=== PATIENT | female | born 1930 | race Caucasian/White ===

== ENCOUNTER 2017-05-27 19:43 | Inpatient (IN) ==
--- NOTE | 2017-05-27 20:37 | Emergency Department Note ---
Disposition Clinical Impression: NSTEMI (non-ST elevated myocardial infarction) Disposition: Admitted As Inpatient Condition: Good Time of Disposition: 22:27 General Adult HPI - General Chief complaint: ED Chest Pain Stated complaint: CP Time Seen by Provider: 05/27/17 19:44 Source: patient, EMS Limitations: no limitations Nursing Notes Reviewed: Yes Vital Signs Reviewed: Yes - History of Present Illness HPI Narrative: 86-year-old female presented to the emergency department complaining of chest pain. She was brought in by EMS. She states she got substernal crushing chest pain around 3:30 this afternoon with associated weakness and radiation into the left arm. She denies diaphoresis or nausea or vomiting. Patient denies any chest pain at this time. Patient took 3 nitros at home. She states they minimally reduced her pain. When the pain did not completely go away after the nitroglycerin as she called EMS. When EMS got to her they gave her a full dose aspirin. Patient denies any stents but does state she has a history of TIAs. She states she went for a cardiac catheterization this summer in [place] but they were unable to complete it due to "hard veins". Pain Scale: 0 - Related Data Home Medications Medication Instructions Recorded Confirmed Aspirin [Adult Low Dose Aspirin EC] 81 mg PO DAILY 10/08/15 05/27/17 Atorvastatin [Lipitor] 40 mg PO DAILY 10/08/15 05/27/17 Diltiazem HCl [Diltiazem 24Hr Cd] 240 mg PO DAILY 10/08/15 05/27/17 Olmesartan Medoxomil [Benicar] 40 mg PO DAILY 10/08/15 05/27/17 Pantoprazole Sodium [Protonix] 40 mg PO DAILY 10/08/15 05/27/17 HYDROcodone/Acet 5/325 mg [[place] 1 tab PO Q8H PRN 09/16/16 05/27/17 5-325 mg] Nitroglycerin 0.4 mg SL Q5MIN PRN 09/16/16 05/27/17 Isosorbide MONOnitrate (24 HR) 60 mg PO DAILY 05/27/17 05/27/17 [Imdur] hydroCHLOROthiazide 25 mg PO DAILY 05/27/17 05/27/17 [Hydrochlorothiazide] Allergies Allergy/AdvReac Type Severity Reaction Status Date / Time acetaminophen [From Percocet] AdvReac Nausea Verified 09/16/16 15:18 Oxycodone [From Percocet] AdvReac Nausea Verified 09/16/16 15:18 All systems ED: reviewed and negative except as stated. Constitutional: Reports: weakness. Denies: fever, chills Eyes: Reports: as per HPI ENT ED: Reports: as per HPI Cardiovascular: Reports: chest pain. Denies: palpitations, dyspnea on exertion Respiratory: Denies: cough, dyspnea, wheezes Gastrointestinal: Denies: abdominal pain, nausea, vomiting Genitourinary: Reports: as per HPI Musculoskeletal: Reports: as per HPI Integumentary: Reports: as per HPI Neurological: Reports: as per HPI Psychiatric: Reports: as per HPI Endocrine: Reports: as per HPI Hematological/Lymphatic: Reports: as per HPI Allergic/Immunologic: Reports: as per HPI Past Medical History - Past Medical History Attestation: Yes The following information was validated with the patient. Medical history: Reports: GERD, hyperlipidemia, hypertension, TIA, other Surgical history: Reports: hip replacement, hysterectomy, other Psychiatric history: Reports: no psych history - Social History Smoking Status: Never smoker Smokeless Tobacco Status: No Alcohol use: Reports: none Drug use: Reports: none Physical Exam - General Limitations: no limitations General appearance: alert, in no apparent distress - Head Head exam: atraumatic, normocephalic, normal inspection - Chest Chest inspection: Present: normal inspection, symmetric chest wall rise. Absent : tenderness, rash - Respiratory Respiratory exam: Present: normal lung sounds bilaterally. Absent: respiratory distress, wheezes, stridor - Cardiovascular Cardiovascular exam: Present: regular rate, normal rhythm, normal heart sounds - Abdominal Exam Abdominal exam: Present: soft, Non-Tender. Absent: distention, guarding, rebound - Extremities Exam Extremities exam: Present: normal inspection, full ROM - Neurological Exam Neurological exam: Present: alert, oriented X3 - Psychiatric Psychiatric exam: Present: normal affect, normal mood - Skin Skin exam: Present: warm, intact Course Course Narrative: 86-year-old female presented to the emergency department complaining of chest pain. EKG completed shows concerning nonspecific ST changes along with new right bundle branch block. A chest pain workup will be completed. Disposition will be admission. Patient is pain-free at this time. She is alert and oriented 3 in the room with stable vital signs at this time. - Reevaluation(s) Reevaluation #1: Troponin has come back elevated at 0.31. I have spoken with cardiology on-call doctor Amelie who agrees with our plan of starting a heparin drip at this time. He agrees with controlling her blood pressure with Nitropaste at this time. We will admit the patient to hospitalist care and cardiology will follow her in the morning. Patient alert and oriented times August with stable vital signs. She is slightly hypertensive with systolic 180 at this time. Patient awaiting Nitropaste. Time: 21:16 Reevaluation #2: Dr. Kate accepts the patient. Time: 22:27 Vital Signs Temperature 98 F 05/27/17 19:45 Pulse Rate 88 05/27/17 19:45 Respiratory Rate 16 05/27/17 19:45 Blood Pressure 198/115 05/27/17 19:45 O2 Sat by Pulse Oximetry 96 05/27/17 19:45 Temperature 97.8 F 05/27/17 23:41 Pulse Rate 71 05/27/17 23:41 Respiratory Rate 16 05/27/17 23:41 Blood Pressure 151/93 05/27/17 23:41 O2 Sat by Pulse Oximetry 97 05/27/17 23:41 Oxygen Delivery Oxygen Delivery Room Air Medical Decision Making - Lab Data Result diagrams: 05/27/17 20:21 05/27/17 20:21 Lab Results 05/27/17 05/27/17 05/27/17 Range/Units 20:21 20:21 20:21 WBC 9.5 (4.3-11.1) K/mcL RBC 4.11 (3.82-4.97) M/mcL Hgb 12.8 (11.5-15.4) g/dL Hct 38.1 (35.3-44.9) % MCV 92.7 (83.0-100.0) fL MCH 31.1 (28.0-33.3) pg MCHC 33.6 (31.6-35.5) g/dL RDW 13.2 (11.5-14.5) % Plt Count 264 (140-400) K/mcL MPV 9.8 (9.4-12.4) fL Immature Gran % 0.3 (0-4) % Seg Neutrophils % 70.6 % Lymphocytes % 17.5 % Monocytes % 9.9 % Eosinophils % 1.2 % Basophils % 0.5 % Neutrophils # 6.7 (1.6-8.9) K/mcL Lymphocytes # 1.7 (0.6-4.6) K/mcL Monocytes # 0.9 (0.0-1.3) K/mcL Eosinophils # 0.1 (0.0-0.6) K/mcL Basophils # 0.1 (0.0-0.2) K/mcL PT (9.4-12.1) Seconds INR APTT (26.0-36.0) Seconds Sodium 136 (136-145) mEq/L Potassium 3.8 (3.5-4.5) mEq/L Chloride 103 (98-109) mEq/L Carbon Dioxide 25 (19-29) mEq/L BUN 13 (7-20) mg/dL Creatinine 0.89 (0.57-1.11) mg/dL Est GFR ( Amer) > 60 (> 60) Est GFR (Non-Af Amer) > 60 (> 60) BUN/Creatinine Ratio 15 (6-26) Glucose 158 H (70-99) mg/dL Calculated Osmolality 285 (280-300) Calcium 9.6 (8.6-10.8) mg/dL Troponin I 0.31 H* (0-0.03) ng/mL 05/27/17 Range/Units 21:06 WBC (4.3-11.1) K/mcL RBC (3.82-4.97) M/mcL Hgb (11.5-15.4) g/dL Hct (35.3-44.9) % MCV (83.0-100.0) fL MCH (28.0-33.3) pg MCHC (31.6-35.5) g/dL RDW (11.5-14.5) % Plt Count (140-400) K/mcL MPV (9.4-12.4) fL Immature Gran % (0-4) % Seg Neutrophils % % Lymphocytes % % Monocytes % % Eosinophils % % Basophils % % Neutrophils # (1.6-8.9) K/mcL Lymphocytes # (0.6-4.6) K/mcL Monocytes # (0.0-1.3) K/mcL Eosinophils # (0.0-0.6) K/mcL Basophils # (0.0-0.2) K/mcL PT 11.5 (9.4-12.1) Seconds INR 1.1 APTT 30.2 (26.0-36.0) Seconds Sodium (136-145) mEq/L Potassium (3.5-4.5) mEq/L Chloride (98-109) mEq/L Carbon Dioxide (19-29) mEq/L BUN (7-20) mg/dL Creatinine (0.57-1.11) mg/dL Est GFR ( Amer) (> 60) Est GFR (Non-Af Amer) (> 60) BUN/Creatinine Ratio (6-26) Glucose (70-99) mg/dL Calculated Osmolality (280-300) Calcium (8.6-10.8) mg/dL Troponin I (0-0.03) ng/mL - EKG Data EKG #1 EKG attestation: Yes I reviewed and interpreted this EKG. EKG results narrative: First-degree AV block. 85 bpm. Left axis deviation. NC interval 211, QRS 142 , QTC 423. ST segment elevation noted in 1 and aVL. Significant T-wave depression noted in V1, V2, V3, V4. T-wave inversion also noted in lead III. When compared to previous EKG completed on 09/16/2016 obvious signs of new ischemia and ST segment changes seen. Attestation Statement - Attestation Attestation: I, Jaylen Gustafson, examined this patient and my medical decision-making was reviewed with the FLOOR CARE TECHNICIAN/PA/Advanced Practice Nurse/Resident Physician. I agree with the documented findings, disposition and treatment plan as described except to the extent set forth below. 86-year-old female presents to emergency Department with concerns of acute onset chest pain. Patient states pain was a pressure located in the center of her chest, described as a crushing chest pressure, which lasted 30 minutes before resolving with nitroglycerin. Patient states she has a history of coronary artery disease but she was unable to have a cardiac catheterization with stenting secondary to narrowed vessels. Patient had elevation of her initial troponin 0.31. Patient was started on heparin and aspirin in the emergency department. The resident spoke with the lawn mower regarding the patient's elevated troponin and likely an STEMI. Acoustical Tile Patternmaker recommended admission to the hospital with heparin and will see in the morning. Patient is pain-free in the emergency department. Patient comfortable with the plan for admission to the hospital.
[2017-05-27 20:40] LABS: Basophils # 0.1 K/mcL (0.0-0.2); Basophils % 0.5 %; Eosinophils # 0.1 K/mcL (0.0-0.6); Eosinophils % 1.2 %; Hematocrit 38.1 % (35.3-44.9); Hemoglobin 12.8 g/dL (11.5-15.4); Immature Granulocytes % 0.3 % (0-4); Lymphocytes # 1.7 K/mcL (0.6-4.6); Lymphocytes % 17.5 %; Mean Corpuscular HGB Conc 33.6 g/dL (31.6-35.5); Mean Corpuscular Hemoglobin 31.1 pg (28.0-33.3); Mean Corpuscular Volume 92.7 fL (83.0-100.0); Mean Platelet Volume 9.8 fL (9.4-12.4); Monocytes # 0.9 K/mcL (0.0-1.3); Monocytes % 9.9 %; Neutrophils # 6.7 K/mcL (1.6-8.9); Platelet Count 264 K/mcL (140-400); Red Blood Count 4.11 M/mcL (3.82-4.97); Red Cell Distribution Width 13.2 % (11.5-14.5); Segmented Neutrophils % 70.6 %
[2017-05-27 20:56] LABS: BUN/Creatinine Ratio 15 (6-26); Blood Urea Nitrogen 13 mg/dL (7-20); Calcium 9.6 mg/dL (8.6-10.8); Carbon Dioxide 25 mEq/L (19-29); Chloride 103 mEq/L (98-109); Glucose 158 mg/dL (70-99); Osmolality,Calculated 285 (280-300); Potassium 3.8 mEq/L (3.5-4.5); Sodium 136 mEq/L (136-145); eGFR For African Americans > 60 (> 60); eGFR For Non-African Americans > 60 (> 60)
[2017-05-27] MEDS ORDERED: Nitroglycerin 0.4 MG TAB.SUBL SL PRN (21:06)
[2017-05-27] MEDS ORDERED: *HR* Heparin 5,000 UNIT/ML VIAL IVP ONE (21:07)
[2017-05-27] MEDS ORDERED: *HR* Heparin 5,000 UNIT/ML VIAL IVP PRN (21:07)
[2017-05-27] MEDS ORDERED: Nitroglycerin 0.2 MG PATCH.TD24 TD ONE (21:15)
[2017-05-27 21:31] LABS: INR 1.1; Prothrombin Time 11.5 Seconds (9.4-12.1)
[2017-05-27 21:41] LABS: Activated Partial Thrombo Time 30.2 Seconds (26.0-36.0)
[2017-05-27] MEDS: Heparin 25,000 UNIT/500 ML D5W 25,000 UNIT/500 ML MLS IVC SCH (22:17)
--- NOTE | 2017-05-28 01:59 | Internal Med History&Physical ---
Date of Encounter: 05/28/17 Time of Encounter: 01:55 Assessment and Plan (1) NSTEMI (non-ST elevated myocardial infarction) Current visit: Yes Status: Acute Patient presents with typical anginal pain lasted for 30 minutes unresolved with sublingual nitroglycerin. 10.3. Her electrocardiogram shows new RBBB and subtle [address] elevation in I avl. Will repeat EKG. start the patient on antipsychotic medications including full dose heparin. Patient is currently chest pain free. Cardiology will see the patients. She will be NPO for coronary angiography. We will try to get outside records. She mentioned that last year she had a similar episode and attempt of coronary angiography was unsuccessful due to difficulty of passage of the wire. She is full dacia Internal Medicine - H&P: HPI Chief complaint: chest pain History of present illness: Ms. Houston is a 86 year old female patient with history of HTN and CAD present to the ED today with a main complain of chest pain. At approximately 5 30 pm the patient started experiencing, at rest retrosternal chest pain which she describes as heaviness sensation radiating to the left arm. This lasted for approximately 30 minutes and rsolved after administration of SLN. She was off pain during my interview. She had similar episodes before. Past Med Surg Social Fam HX - Past Medical History Medical history: GERD, hyperlipidemia, hypertension, TIA, other Psychiatric history: no psych history - Past Surgical History Surgical History: hip replacement, hysterectomy, other - Social History Smoking Status: Never smoker Smokeless Tobacco Status: No Alcohol use: none Drug use: none - Family History Mother Hx Family Cardiac Disorders: Yes Brother Hx Family Cardiac Disorders: Yes Internal Medicine - H&P: Meds Aspirin [Adult Low Dose Aspirin EC] 81 mg PO DAILY 10/08/15 [History] Atorvastatin [Lipitor] 40 mg PO DAILY 10/08/15 [History] Diltiazem HCl [Diltiazem 24Hr Cd] 240 mg PO DAILY 10/08/15 [History] Olmesartan Medoxomil [Benicar] 40 mg PO DAILY 10/08/15 [History] Pantoprazole Sodium [Protonix] 40 mg PO DAILY 10/08/15 [History] HYDROcodone/Acet 5/325 mg [[place] 5-325 mg] 1 tab PO Q8H PRN 09/16/16 [History] Nitroglycerin 0.4 mg SL Q5MIN PRN 09/16/16 [History] Isosorbide MONOnitrate (24 HR) [Imdur] 60 mg PO DAILY 05/27/17 [History] hydroCHLOROthiazide [Hydrochlorothiazide] 25 mg PO DAILY 05/27/17 [History] 3 Allergy/AdvReac Type Severity Reaction Status Date / Time acetaminophen [From Percocet] AdvReac Nausea Verified 09/16/16 15:18 Oxycodone [From Percocet] AdvReac Nausea Verified 09/16/16 15:18 All Systems PM: A 10-system review of systems was performed and is negative for pertinent findings except as documented above in the HPI. Review of systems: 10 point review of systems is negative except for HPI - Constitutional Vitals: Temp Pulse Resp BP Pulse Ox 97.8 F 71 16 151/93 97 05/27/17 23:41 05/27/17 23:41 05/27/17 23:41 05/27/17 23:41 05/27/17 23:41 Exam: Gen.: patient is alert oriented times 3 not in distress cardiac: Normal S1, S2, no additional sounds or murmurs chest: Clear to auscultation Abdomen: Soft, non tender lower extremity Lax calf muscles no swelling Neuro: no focal deficits Internal Med - H&P Results - Labs CBC & Chem 7: 05/27/17 20:21 05/27/17 20:21
[2017-05-28 02:16] LABS: Basophils # 0.1 K/mcL (0.0-0.2); Basophils % 0.6 %; Eosinophils # 0.2 K/mcL (0.0-0.6); Eosinophils % 1.7 %; Hematocrit 34.6 % (35.3-44.9); Hemoglobin 11.7 g/dL (11.5-15.4); Immature Granulocytes % 0.3 % (0-4); Immature Platelets 5.2 % (1.1-6.1); Lymphocytes # 2.1 K/mcL (0.6-4.6); Lymphocytes % 20.7 %; Mean Corpuscular HGB Conc 33.8 g/dL (31.6-35.5); Mean Corpuscular Hemoglobin 31.5 pg (28.0-33.3); Mean Corpuscular Volume 93.3 fL (83.0-100.0); Mean Platelet Volume 9.7 fL (9.4-12.4); Monocytes # 1.2 K/mcL (0.0-1.3); Monocytes % 11.1 %; Neutrophils # 6.8 K/mcL (1.6-8.9); Platelet Count 294 K/mcL (140-400); Red Blood Count 3.71 M/mcL (3.82-4.97); Red Cell Distribution Width 13.2 % (11.5-14.5); Segmented Neutrophils % 65.6 %
[2017-05-28 02:21] LABS: INR 1.2; Prothrombin Time 12.6 Seconds (9.4-12.1)
[2017-05-28 02:29] LABS: BUN/Creatinine Ratio 16 (6-26); Blood Urea Nitrogen 12 mg/dL (7-20); Carbon Dioxide 24 mEq/L (19-29); Chloride 106 mEq/L (98-109); Creatine Kinase 142 Units/L (29-168); Glucose 108 mg/dL (70-99); Osmolality,Calculated 286 (280-300); Potassium 3.7 mEq/L (3.5-4.5); Sodium 138 mEq/L (136-145); eGFR For African Americans > 60 (> 60); eGFR For Non-African Americans > 60 (> 60)
[2017-05-28] MEDS ORDERED: Perflutren Lipid Microsphere 1.3 ML in 0.9 % Sodium Chloride 8.7 ML IVP ONE (08:25)
[2017-05-28] MEDS ORDERED: Perflutren Lipid Microsphere 2 ML VIAL ONE (08:30)
[2017-05-28] MEDS ORDERED: Diltiazem CD (24hr) 240 MG CAPSULE PO SCH (09:00)
[2017-05-28] MEDS ORDERED: Valsartan 160 MG TABLET PO SCH (09:00)
[2017-05-28] MEDS: Aspirin Enteric Coated 81 MG Tablet PO SCH (09:31)
[2017-05-28] MEDS: Isosorbide MONOnitrate (24 HR) 60 MG TAB.ER.24H PO SCH (09:31)
--- NOTE | 2017-05-28 09:31 | Cardiology Consult Note ---
Date of Encounter: 05/28/17 Time of Encounter: 09:32 Assessment and Plan (1) NSTEMI (non-ST elevated myocardial infarction) Current Visit: Yes Status: Acute Troponins 0.31, 2.87. Symptoms of chest pain, dyspnea and left hand numbness yesterday. EKG changes. Echo pending. LHC 05/2016 at [facility]--LAD, LCx and RCA disease not intervened on. Recommend LH. R/B/A discussed. Pt agrees to proceed. LHC today. Continue heparin gtt. ASA, Statin, BB, ARB. Continue to follow. (2) CAD (coronary artery disease) Current Visit: Yes Status: Acute ASA, Statin, BB. Qualifiers: Coronary Disease-Associated Artery/Lesion type: [place] artery [place] vs. transplanted heart: [place] heart Associated angina: with unstable angina Qualified Code(s): I25.110 - Atherosclerotic heart disease of [place] coronary artery with unstable angina pectoris Discussion w patient/family: The assessment and plan as outlined above was discussed with the patient and/or family members who expressed understanding and agreement. All questions were answered. Thank you for involving us in the care of your patient. Please call with any questions. I will discuss all the above with Dr. Kinsey and make changes as necessary. History of Present Illness Consult date: 05/28/17 Requesting physician: Jourdan Kate Consult reason: NSTEMI Chief complaint: Chest pain History of present illness: Ms. Houston is a 86 year old female with PMH of HTN, HLD, TIA, CAD presented to the ED yesterday with chief complaint of chest pain, pressure associated with dyspnea and left hand numbness. Troponins 0.31, 2.87. Ischemic EKG changes noted. Currently chest pain free. Per pt, had LHC 05/2016 at [facility] with blockages noted, but no stents and medical management recommended. Previous procedures: Cardiac catheterization 05/10/2016 ([facility]): Left main heavily calcified , but no flow-limiting disease. LAD heavily calcified and appears flow-limiting in the proximal segment in one view, but appears moderate in other views. Best estimate 70% stenosis. Mid to distal LAD 40-50% stenosis. Circumflex heavily calcified with a mid to distal 70-80% stenosis before the terminal obtuse marginal branch. RCA heavily calcified versus possible stents, 20-30% stenosis. Pharmacological nuclear stress test 05/08/2016 ([facility]): Reversible defect in the apex to apical mid anterior/anteroseptal segment suspicious for ischemia. Normal wall motion. Increased TID ratio. Echocardiogram 01/31/2015 ([facility]): EF 60%. Moderate concentric LVH. Mild diastolic dysfunction. Moderate left atrial enlargement. Calcified aortic valve with a mean gradient of 18 mmHg, consistent with mild aortic stenosis. Moderate aortic regurgitation. Mild MR. Mild TR. Mild CA. No evidence of pulmonary hypertension. Past Med Surg Social Fam HX - Past Medical History Medical history: coronary artery disease, GERD, hyperlipidemia, hypertension, TIA, other Psychiatric history: no psych history - Past Surgical History Surgical History: hip replacement, hysterectomy, other - Social History Smoking Status: Never smoker Smokeless Tobacco Status: No Alcohol use: none Drug use: none - Family History Mother Hx Family Cardiac Disorders: Yes Brother Hx Family Cardiac Disorders: Yes Medications and Allergies Aspirin [Adult Low Dose Aspirin EC] 81 mg PO DAILY 10/08/15 [History] Atorvastatin [Lipitor] 40 mg PO DAILY 10/08/15 [History] Diltiazem HCl [Diltiazem 24Hr Cd] 240 mg PO DAILY 10/08/15 [History] Olmesartan Medoxomil [Benicar] 40 mg PO DAILY 10/08/15 [History] Pantoprazole Sodium [Protonix] 40 mg PO DAILY 10/08/15 [History] HYDROcodone/Acet 5/325 mg [[place] 5-325 mg] 1 tab PO Q8H PRN 09/16/16 [History] Nitroglycerin 0.4 mg SL Q5MIN PRN 09/16/16 [History] Isosorbide MONOnitrate (24 HR) [Imdur] 60 mg PO DAILY 05/27/17 [History] hydroCHLOROthiazide [Hydrochlorothiazide] 25 mg PO DAILY 05/27/17 [History] 3 Allergy/AdvReac Type Severity Reaction Status Date / Time acetaminophen [From Percocet] AdvReac Nausea Verified 09/16/16 15:18 Oxycodone [From Percocet] AdvReac Nausea Verified 09/16/16 15:18 All Systems Review: A 10-system review of systems was performed and is negative for pertinent findings except as documented above in the HPI. - Cardiovascular Cardiovascular: as per HPI, chest pain at rest, chest pain with exertion, dyspnea at rest, dyspnea on exertion, radiating jaw, neck or arm pain - Respiratory Respiratory: dyspnea Physical Examination Vital Signs, Last 4 Hours Temp Pulse Resp BP Pulse Ox 05/28/17 07:31 97.6 F 73 16 131/77 97 Vital Signs Temp Pulse Resp BP Pulse Ox 05/28/17 07:31 97.6 F 73 16 131/77 97 05/28/17 03:09 97.9 F 73 16 159/90 96 05/27/17 23:41 97.8 F 71 16 151/93 97 05/27/17 23:16 18 144/82 05/27/17 23:14 97 05/27/17 22:15 76 18 117/73 95 05/27/17 20:35 85 20 208/121 97 05/27/17 19:45 98 F 88 16 198/115 96 Intake and Output 05/27/17 05/28/17 05/28/17 23:59 07:59 15:59 Intake Total 100 / 100 Balance 100 / 100 Intake: IV Fluids 100 / 100 Heparin 25,000 UNIT/500 ML D5W 100 / 100 25,000 unit In 500 ml @ 12 UNIT /KG/HR 15.785 mls/hr IVC .Q24H [facility] Rx#:[id number] Other: Weight 68.039 kg 68.039 kg Patient Weight 05/28/17 23:59 Weight 68.039 kg General: Conversant, No Apparent Distress HEENT: Atraumatic, Normocephaly, Mucus Membranes Moist Neck: No JVD, Normal carotid pulses Cardiac: Reg Rate and Rhythm, Normal S1 and S2, Other (2/6 SHAHID noted) Lungs: Normal Breath Sounds, No Wheeze, Rales, Rhonchi Neuro: Alert and responsive, No focal deficits noted Abdomen: Soft, Non-Tender Skin: No rashes noted on visualized skin Musculoskeletal: No Chest Wall Tenderness Extremities: No Clubbing, No Cyanosis, No Edema, Normal Pulses Results 05/28/17 02:08 05/28/17 02:08 Lab Results 05/28/17 05/28/17 05/28/17 02:08 02:08 02:08 WBC 10.4 Hgb 11.7 Hct 34.6 L Plt Count 294 INR 1.2 APTT Sodium 138 Potassium 3.7 Chloride 106 Carbon Dioxide 24 BUN 12 Creatinine 0.73 Glucose 108 H Calcium 9.0 Magnesium 2.0 Troponin I 05/28/17 05/28/17 02:08 04:03 WBC Hgb Hct Plt Count INR APTT 79.8 H D Sodium Potassium Chloride Carbon Dioxide BUN Creatinine Glucose Calcium Magnesium Troponin I 2.87 H* Short CBC 05/28/17 05/27/17 Range/Units 02:08 20:21 WBC 10.4 9.5 (4.3-11.1) K/mcL Hgb 11.7 12.8 (11.5-15.4) g/dL Hct 34.6 L 38.1 (35.3-44.9) % Plt Count 294 264 (140-400) K/mcL Neutrophils # 6.8 6.7 (1.6-8.9) K/mcL BMP 05/28/17 05/27/17 Range/Units 02:08 20:21 Sodium 138 136 (136-145) mEq/L Potassium 3.7 3.8 (3.5-4.5) mEq/L Chloride 106 103 (98-109) mEq/L Carbon Dioxide 24 25 (19-29) mEq/L BUN 12 13 (7-20) mg/dL Creatinine 0.73 0.89 (0.57-1.11) mg/dL Glucose 108 H 158 H (70-99) mg/dL Calcium 9.0 9.6 (8.6-10.8) mg/dL Cardiac Enzymes 05/28/17 05/27/17 Range/Units 02:08 20:21 Troponin I 2.87 H* 0.31 H* (0-0.03) ng/mL Impressions Chest X-Ray 05/27/17 19:51 IMPRESSION: No acute cardiopulmonary process. D/ / 05/27/2017 21:04:28 Hortensia Nolen MD / [email or web address] Interpreting Provider: Hortensia Nolen MD Active Medications Aspirin (Aspirin Ec) 81 mg PO DAILY NANCY Stop: 11/27/17 09:01 Last Admin: 05/28/17 09:31 Dose: 81 mg Atorvastatin Calcium (Lipitor) 40 mg PO DAILY NANCY Stop: 11/27/17 09:01 Last Admin: 05/28/17 09:31 Dose: 40 mg Diltiazem HCl (Cardizem Cd) 240 mg PO DAILY NANCY Stop: 11/27/17 09:01 Last Admin: 05/28/17 09:31 Dose: 240 mg Heparin Sodium (Porcine) (Heparin) 3,900 unit 60 unit/kg (3900 unit) IVP Q6HR PRN PRN Reason: SEE COMMENTS Stop: 11/26/17 21:08 Heparin Sodium (Porcine) (Heparin) 2,000 unit 30 unit/kg (2000 unit) IVP Q6H PRN PRN Reason: SEE COMMENTS Stop: 11/26/17 21:08 Heparin Sodium/Dextrose (Heparin 25,000 Unit/500 Ml D5w) 25,000 unit in 500 mls @ 15.785 mls/hr IVC .Q24H NANCY; 12 UNIT/KG/HR PRN Reason: Protocol Stop: 11/26/17 21:16 Last Titration: 05/28/17 05:00 Dose: 12 unit/kg/hr, 15.785 mls/hr Isosorbide Mononitrate (Imdur) 60 mg PO DAILY [facility] Stop: 11/27/17 09:01 Last Admin: 05/28/17 09:31 Dose: 60 mg Nitroglycerin (Nitroglycerin) 0.4 mg SL Q5MIN PRN PRN Reason: Chest Pain Stop: 11/26/17 21:07 Last Admin: 05/27/17 22:17 Dose: 0.4 mg Omeprazole (Prilosec) 20 mg PO 0630 NANCY Stop: 11/27/17 06:31 Last Admin: 05/28/17 05:04 Dose: Not Given Valsartan (Diovan) 320 mg PO DAILY [facility] Stop: 11/27/17 09:01 Last Admin: 05/28/17 09:31 Dose: 320 mg - Imaging and Cardiology Echo: pending - EKG Interpretation EKG results cardiology: personally reviewed (SR, RBBB, ischemic EKG changes) Consult Discharge Plan - Plan Referrals: Reji Mccray DO [Primary Care Provider] -
[2017-05-28] MEDS ORDERED: *HR* Heparin 10,000 UNIT/10 ML VIAL ONE (10:23)
[2017-05-28] MEDS ORDERED: Heparin 1,000 UNITS/500 mL NS 500 ML ONE (10:23)
[2017-05-28] MEDS ORDERED: 0.9 % Sodium Chloride 2,000 ML ONE (10:24)
[2017-05-28] MEDS ORDERED: Nitroglycerin 1,000 MCG/10 ML VIAL IV ONE (10:24)
--- NOTE | 2017-05-28 10:25 | Internal Med Progress Note ---
<Vidhya Franklin - Last Filed: 05/28/17 13:26> Date of Encounter: 05/28/17 Time of Encounter: 10:23 - Assessment and plan (1) NSTEMI (non-ST elevated myocardial infarction) Current Visit: Yes Status: Acute Assessment and plan: Patient presented to the hospital with chest pain. Diagnosed with NSTEMI EKG showed new RBBB and subtle [address] elevation in I avl. elevated troponins 0.31, 2.87 TTE mild-moderate left ventricular systolic dysfunction LVEF 40%, moderate , mild-moderate AR, mild-moderate MR CXR no acute abnormality she currently reports no chest pain or shortness of breath -Cardiology taking patient for [facility] today -continue heparin, aspirin, atorvastatin, Toprol, valsartan, isosorbide, diltiazem -continue telemetry (2) CAD (coronary artery disease) Current Visit: Yes Status: Acute Assessment and plan: Patient has history of [facility] 05/2016 -Continue medications Qualifiers: Coronary Disease-Associated Artery/Lesion type: [place] artery [place] vs. transplanted heart: [place] heart Associated angina: with unstable angina Qualified Code(s): I25.110 - Atherosclerotic heart disease of [place] coronary artery with unstable angina pectoris (3) Hypertension Current Visit: Yes Status: Acute Assessment and plan: Patient history of hypertension -continue home medications of diltiazem, isosorbide Qualifiers: Qualified Code(s): I10 - Essential (primary) hypertension (4) Hyperlipemia Current Visit: Yes Status: Acute Assessment and plan: Patient has history of hyperlipidemia continue atorvastatin Qualifiers: Qualified Code(s): E78.5 - Hyperlipidemia, unspecified (5) DVT prophylaxis Current Visit: Yes Status: Acute Assessment and plan: Heparin - Subjective Interval history: Laying in bed comfortably in no acute distress she is talking with her grandson she denies chest pain, shortness of breath, headache nausea, vomiting, abdominal pain. She has no complaints at this time - Constitutional Vitals: Temp Pulse Resp BP Pulse Ox 97.6 F 73 16 131/77 97 05/28/17 07:31 05/28/17 07:31 05/28/17 07:31 05/28/17 07:31 05/28/17 07:31 Exam: Gen.: Vitals noted. No acute distress. AAOx3 HEENT: oropharynx clear, Normocephalic, atraumatic Cardiac: RRR, systolic murmur, +S1/S2 Pulmonary: CTA bilaterally, no wheezes, rales or rhonchi, equal chest expansion Abdomen: soft, nontender, Bowel sounds noted, no guarding Extremities: no BLE edema, nontender calf, no cyanosis or clubbing Neuro: A&Ox3, moves all extremities Psych: Appropriate mood and behavior Internal Medicine: Result - Labs CBC & Chem 7: 05/28/17 02:08 05/28/17 02:08 Labs: Short CBC 05/28/17 Range/Units 02:08 WBC 10.4 (4.3-11.1) K/mcL Hgb 11.7 (11.5-15.4) g/dL Hct 34.6 L (35.3-44.9) % Plt Count 294 (140-400) K/mcL Neutrophils # 6.8 (1.6-8.9) K/mcL BMP 05/28/17 02:08 Sodium 138 Potassium 3.7 Chloride 106 Carbon Dioxide 24 BUN 12 Creatinine 0.73 Glucose 108 H Calcium 9.0 Cardiac Enzymes 05/28/17 Range/Units 02:08 Troponin I 2.87 H* (0-0.03) ng/mL - ABG Interpretation ABG results: PT/INR, D-dimer PT 12.6 Seconds (9.4-12.1) H 05/28/17 02:08 - Impressions Impressions Echocardiogram 05/28/17 09:00 Impressions: Mild-moderate LV systolic dysfunction, LVEF 40%. There are regional wall motion abnormalities, see diagram below. Mild concentric left ventricular hypertrophy. Mild left ventricular diastolic dysfunction. Normal right ventricular size and function. Moderately dilated left atrium. Trileaflet aortic valve with moderately calcified leaflets. Moderate aortic stenosis. Mild-moderate aortic regurgitation. Moderate calcification of the mitral valve annulus and subvalvular apparatus. No mitral stenosis. Mild-moderate mitral regurgitation. No evidence of pulmonary hypertension. Left Ventricular Wall Motion: Rest Echo Findings The mid inferior septal and mid anterior septal bain were hypokinetic. The apex, apical inferior, basal inferior, apical anterior, apical septal and apical lateral bain were akinetic. All other wall segments showed normal motion. Findings: Study Quality * Technically adequate exam. ECG Findings * Normal sinus rhythm. Left Ventricle * Mild-moderate LV systolic dysfunction, LVEF 40%. There are regional wall motion abnormalities, see diagram below. * Normal LV chamber size. * Mild concentric left ventricular hypertrophy. * Mild left ventricular diastolic dysfunction. Right Ventricle * Normal right ventricular size and function. Left Atrium * Moderately dilated left atrium. Right Atrium * Normal right atrial size. Aorta * Normally sized aortic root. Pericardium * There is no pericardial effusion present. IVC * The IVC is not dilated. Aortic Valve * Trileaflet aortic valve with moderately calcified leaflets. * Moderate aortic stenosis. * Mild-moderate aortic regurgitation. Mitral Valve * Moderate calcification of the mitral valve annulus and subvalvular apparatus. * No mitral stenosis. * Mild-moderate mitral regurgitation. Tricuspid Valve * Normal tricuspid valve structure. * No tricuspid stenosis. * Trace tricuspid regurgitation. * No evidence of pulmonary hypertension. Pulmonic Valve * Pulmonic valve not well visualized. * No pulmonic stenosis. * Trace pulmonic regurgitation. Consult Discharge Plan - Plan Referrals: Reji Mccray DO [Primary Care Provider] - <Sundar Cox H - Last Filed: 05/28/17 15:06> Date of Encounter: 05/28/17 - Constitutional Vitals: Temp Pulse Resp BP Pulse Ox 97.1 F L 62 16 97/60 96 05/28/17 13:32 05/28/17 13:32 05/28/17 13:32 05/28/17 13:32 05/28/17 13:32 Internal Medicine: Result - Labs CBC & Chem 7: 05/28/17 02:08 05/28/17 02:08 Labs: Short CBC 05/28/17 Range/Units 02:08 WBC 10.4 (4.3-11.1) K/mcL Hgb 11.7 (11.5-15.4) g/dL Hct 34.6 L (35.3-44.9) % Plt Count 294 (140-400) K/mcL Neutrophils # 6.8 (1.6-8.9) K/mcL BMP 05/28/17 02:08 Sodium 138 Potassium 3.7 Chloride 106 Carbon Dioxide 24 BUN 12 Creatinine 0.73 Glucose 108 H Calcium 9.0 Cardiac Enzymes 05/28/17 05/28/17 Range/Units 02:08 09:41 Troponin I 2.87 H* 2.27 H* (0-0.03) ng/mL - ABG Interpretation ABG results: PT/INR, D-dimer PT 12.6 Seconds (9.4-12.1) H 05/28/17 02:08 - Impressions Impressions Echocardiogram 05/28/17 09:00 Impressions: Mild-moderate LV systolic dysfunction, LVEF 40%. There are regional wall motion abnormalities, see diagram below. Mild concentric left ventricular hypertrophy. Mild left ventricular diastolic dysfunction. Normal right ventricular size and function. Moderately dilated left atrium. Trileaflet aortic valve with moderately calcified leaflets. Moderate aortic stenosis. Mild-moderate aortic regurgitation. Moderate calcification of the mitral valve annulus and subvalvular apparatus. No mitral stenosis. Mild-moderate mitral regurgitation. No evidence of pulmonary hypertension. Left Ventricular Wall Motion: Rest Echo Findings The mid inferior septal and mid anterior septal bain were hypokinetic. The apex, apical inferior, basal inferior, apical anterior, apical septal and apical lateral bain were akinetic. All other wall segments showed normal motion. Findings: Study Quality * Technically adequate exam. ECG Findings * Normal sinus rhythm. Left Ventricle * Mild-moderate LV systolic dysfunction, LVEF 40%. There are regional wall motion abnormalities, see diagram below. * Normal LV chamber size. * Mild concentric left ventricular hypertrophy. * Mild left ventricular diastolic dysfunction. Right Ventricle * Normal right ventricular size and function. Left Atrium * Moderately dilated left atrium. Right Atrium * Normal right atrial size. Aorta * Normally sized aortic root. Pericardium * There is no pericardial effusion present. IVC * The IVC is not dilated. Aortic Valve * Trileaflet aortic valve with moderately calcified leaflets. * Moderate aortic stenosis. * Mild-moderate aortic regurgitation. Mitral Valve * Moderate calcification of the mitral valve annulus and subvalvular apparatus. * No mitral stenosis. * Mild-moderate mitral regurgitation. Tricuspid Valve * Normal tricuspid valve structure. * No tricuspid stenosis. * Trace tricuspid regurgitation. * No evidence of pulmonary hypertension. Pulmonic Valve * Pulmonic valve not well visualized. * No pulmonic stenosis. * Trace pulmonic regurgitation. - Attending Attestation Final report of the left heart Catheterization is pending but apparently it showed severe triple-vessel disease. Cardiothoracic surgery was consulted but apparently the patient is not a good candidate for CABG/surgery. Medical management advised for now. Cardiology recommendations appreciated, may continue heparin drip. Right groin wound without hematoma. I examined this patient and my medical decision-making was reviewed with the Resident Physician. I agree with the documented findings, disposition and treatment plan as described except to the extent set forth below.
[2017-05-28] MEDS ORDERED: 0.9 % Sodium Chloride 1,000 ML ONE (10:54)
--- NOTE | 2017-05-28 11:07 | Pre-Sedation Evaluation ---
Pre-sedation evaluation - Pre-sedation checklist Date of procedure: 05/28/17 Procedure: Heart cath Recent Vitals: Last Vital Signs Temp 97.6 F 05/28/17 07:31 Pulse 73 05/28/17 07:31 Resp 16 05/28/17 07:31 BP 131/77 05/28/17 07:31 Pulse Ox 97 05/28/17 07:31 H&P (including ROS) documented in medical record: Yes Previous reaction to sedatives/anesthetics: No Dietary Status: Clear fluids after Midnight Airway Assessment: Patient can open mouth completely, TMJ function normal Dentition: No loose teeth or bridges Possible difficult airway: No ASA Classification *see protocol: CLASS III-Severe systemic disease Plan of Care: Pt appropriate candidate for procedure/moderate/conscious sedation , Risks/benefits of procedure/sedation discussed w/ patient/family, If not NPO; Risk of intake outweiged by necessity to perform procedure
[2017-05-28] MEDS ORDERED: *HR* Midazolam HCl 2 MG/2 ML VIAL ONE ×2 (11:13→12:26)
[2017-05-28] MEDS ORDERED: *HR* Bivalirudin 250 MG VIAL IVC ONE (11:39)
[2017-05-28] MEDS ORDERED: Ondansetron 4 MG/2 ML VIAL ONE (11:59)
[2017-05-28] MEDS ORDERED: *HR* Morphine 2 MG/ML SYRINGE ONE ×3 (12:12→12:47)
[2017-05-28] MEDS ORDERED: Tirofiban 5 MG/100ML 5 MG/100 ML BAG IV ONE (12:43)
[2017-05-28] MEDS ORDERED: Nitroglycerin 25 MG/250 ML INFUS..BTL IVC ONE (12:58)
--- NOTE | 2017-05-28 13:36 | Invasive Diagnostic Lab Proc ---
Name: Morelia Houston Date of Study: 05/28/2017 Date: 1930 Ht: 57.9in Medical Record#: [id number] Age: 86 Wt: 149.91lb Gender: Female BSA: 1.59 Order #: [id number] BMI: 31.47 Physicians Procedure Physician: Kamari Martins DO Referring MD: Reji Mccray DO Referring MD: Staff Name Position Time In Sites, Georgina RT (R) Monitor 11:19 AM SethGeorgina RT (R) Scrub 11:19 AM Nancy Francisco RN Endoscopy Technician 11:19 AM Bobby Sharp RN Endoscopy Technician 11:19 AM Indications Indication Non-Stemi Procedures Performed Procedure PRQ CARDIAC ANGIOPLAST 1 ART CORONARY ARTERY ANGIO S&I Pre-Procedure Checklist Informed consent is complete signed and on chart. H&P is on chart. ID band is on and ID verified with patient. Patient NPO for procedure The procedure was described for the patient and questions were answered. Blood Pressure: 131/77 ECG is on chart. Rhythm: NSR Plan of Care Patient will tolerate the procedure without complications. Adequate level of comfort will be maintained. Hemodynamics will remain stable Patient will recover from procedure without complications. Respiratory function will be maintained. Cardiac rhythm will remain stable. Patient temperature will be maintained. Patient and/or family have verbalized understanding of the procedure. Patient Education Intravenous Access Time IV Size Location DC'd Fluid/Drip Rate Units RN 22g 1" Patent On Arrival Rt Arm 0.9NaCl 25 ml/hr Nancy Francisco RN Allergies ZOLOFT Oxycodone acetaminophen Vital Signs Time BP (mmHg) HR (bpm) O2 Sat. RR (bpm) LOC 10:04 AM 131 / 77 73 97 % 16 5 = Fully awake and oriented or at pre-proc level 11:20 AM / % 5 = Fully awake and oriented or at pre-proc level 11:35 AM / % 4 = Oriented but drowsy 11:50 AM / % 4 = Oriented but drowsy 12:06 PM / % 4 = Oriented but drowsy 12:21 PM / % 5 = Fully awake and oriented or at pre-proc level 12:36 PM / % 4 = Oriented but drowsy 11:48 AM 166 / 92 73 99 % 18 11:53 AM 139 / 91 74 99 % 18 11:58 AM 113 / 66 71 99 % 23 12:03 PM 123 / 80 68 98 % 18 12:08 PM 125 / 77 70 98 % 28 12:13 PM 133 / 86 73 96 % 9 12:18 PM 119 / 73 69 96 % 13 12:23 PM 121 / 72 71 97 % 8 12:28 PM 119 / 69 68 97 % 15 12:33 PM 119 / 70 69 97 % 12 12:38 PM 120 / 69 70 97 % 14 11:18 AM 169 / 95 72 99 % 20 11:23 AM 150 / 93 72 99 % 18 11:28 AM 149 / 90 72 99 % 21 11:33 AM 138 / 92 69 100 % 17 11:38 AM 149 / 95 71 100 % 19 11:43 AM 133 / 81 74 98 % 19 12:43 PM 118 / 78 70 96 % 18 12:48 PM 101 / 67 71 97 % 15 12:53 PM 109 / 67 68 97 % 31 12:58 PM 110 / 62 65 97 % 13 01:03 PM 108 / 58 68 96 % 21 Procedural Medications Time Medication Dose Units Method Given By 11:19 AM Oxygen 2 L/min nasal cannula Bobby Sharp RN 11:21 AM Versed 1 mg Intravenous Bobby Sharp RN 11:22 AM Lidocaine 2% 9 ml Subcutaneous Kamari Martins DO 11:56 AM Nitroglycerin 100 mcg Intracoronary Kamari Martins DO 11:57 AM Angiomax 0.75mg/kg bolus: 10.5 ml Intravenous Bobby Sharp RN 11:57 AM Angiomax 1.75mg/kg/hr: 24.5 ml Intravenous Bobby Sharp RN 12:00 PM Zofran 4 mg Intravenous Bobby Sharp RN 12:06 PM Versed 1 mg Intravenous Bobby Sharp RN 12:12 PM Morphine 2 mg Intravenous Bobby Sharp RN 12:27 PM Versed 1 mg Intravenous Bobby Sharp RN 12:39 PM Morphine 2 mg Intravenous Bobby Sharp RN 12:44 PM Aggrastat Bolus: 33 ml Intravenous Bobby Sharp RN 12:44 PM Aggrastat 5mg/100ml 12 ml Intravenous Bobby Sharp RN 12:48 PM Morphine 2 mg Intravenous Bobby Sharp RN 12:52 PM Versed 1 mg Intravenous Bobby Sharp RN 01:03 PM Nitroglycerin 5 mcg/min Intracoronary Bobby Sharp RN 01:08 PM Nitroglycerin 10 mcg/min Intracoronary Bobby Sharp RN ASA Classification: CLASS II- Mild systemic disease (i.e. well-controlled diabetes, hypertension, asthma, cigarette smoking) Shaq Score Preprocedure Postprocedure Activity 2- Moves 4 extremities sustained head lift Activity Circulation 2- SBP +/= 20 points of pre-anesthetic level Circulation Consciousness 2- Awake and alert oriented x 3 Consciousness O2 Saturation 2- Able to maintain O2 satruation of 92% on room air O2 Saturation Respiratory 2- Able to deep breathe and cough well Respiratory Total Score 10 Total Score Contrast Agent: Isovue Diagnostic Contrast: 250 ml Total Contrast: 250 ml Fluoro Dose: 3277 mGy Procedure Log Time Note Enter By 11:17 AM CathStat 11:17 AM Vitals capture started with the following parameters, Patient=Adult, Interval=5 min, Initial Eczgqlpg=324 mmHg, Deflation Rate=5 mmHg, Cuff placed on Right Arm 11:18 AM Recorded ECG: HR=73 Condition=Condition 1 11:18 AM HR=72 bpm, PRCE=059/95 mmhg, SpO2=99.0 %, Resp=20 B/min 11:18 AM 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 tsites 11:19 AM Procedure start 11:19 tsites 11:19 AM Case Delayed No tsites 11:19 AM Hair removed from procedure site in holding area using clippers. Bilateral groin prepped with Chloraprep by Georgina Hope RT (R), safety strap applied then patient was draped. Skin intact. tsites 11:20 AM Time: 11: Oxygen on at 2 L/min per nasal cannula by Bobby Sharp RN tsites 11: AM Time: :20 Patient comfortable and pain free: Yes tsites 11: AM Time: :20LOC: 5 = Fully awake and oriented or at pre-proc level tsites 11: AM Clinical Presentation: Non-STEMI tsites 11: AM Time: : Versed 1 mg Intravenous Given by Bobby Sharp RN tsites : AM Time out performed according to hospital policy tsites : AM Time: 9 ml Lidocaine 2% to right groin Subcutaneous Given by Kamari Martins DO tsites 11: AM Micro-Introducer Kit utilized for sheath placement tsites 11: AM Access obtained by percutaneous puncture. 6Fr 10cm Terumo [place] sheath placed in right Femoral artery. [id number] tsites 11: AM Pressure channel 2 zeroed. 11:23 AM HR=72 bpm, YKLK=348/93 mmhg, SpO2=99.0 %, Resp=18 B/min 11:26 AM 0.035 145cm NavKormelist 3mmJ wire [id number] tsites 11:26 AM 6Fr FR 4 catheter inserted over the wire [facility] tsites 11:27 AM Recorded Pressure: Ao, HR=70, Condition=Condition 1 (Aorta) Ao 118/57/83 11:28 AM HR=72 bpm, RKUH=098/90 mmhg, SpO2=99 %, Resp=21 B/min 11:30 AM Catheter removed tsites 11:30 AM 6Fr JR 4 [place] Bright-Tip guide catheter was used to cannulate the PCI vessel successfully. reused? No tsites 11:31 AM wire reinserted catheter removed tsites 11:33 AM Sheath exchanged for a [address] [place] Ultimum sheath [id number] tsites 11:33 AM HR=69 bpm, PVXR=657/92 mmhg, VhT2=963 %, Resp=17 B/min 11:33 AM 6Fr FL 4 catheter inserted over the wire [facility] tsites 11:34 AM Catheter removed tsites 11:35 AM 5Fr FL5 catheter inserted over the wire [id number] tsites 11:36 AM Recorded Pressure: Ao, HR=69, Condition=Condition 1 (Aorta) Ao 141/72/100 11:38 AM HR=71 bpm, TGGK=175/95 mmhg, CpF1=197 %, Resp=19 B/min 11:42 AM wire reinserted catheter removed tsites 11:43 AM 6Fr XB LAD 3.5 [place] Bright-Tip guide catheter was used to cannulate the PCI vessel successfully. reused? No tsites 11:43 AM HR=74 bpm, GHIU=591/81 mmhg, SpO2=98.0 %, Resp=19 B/min 11:44 AM wire reinserted catheter removed tsites 11:45 AM 6Fr MPA1 [place] Impulse guide catheter was used to cannulate the PCI vessel successfully. reused? No tsites 11:47 AM RCA angiography performed in multiple views. tsites 11:47 AM Recorded Pressure: Ao, HR=37, Condition=Condition 1 (Aorta) Ao 155/77/110 11:48 AM wire reinserted catheter removed tsites 11:48 AM HR=73 bpm, VRVE=073/92 mmhg, SpO2=99.0 %, Resp=18 B/min 11:49 AM XBLAD reinserted tsites 11:50 AM Time: 11:35LOC: 4 = Oriented but drowsy tsites 11:51 AM LCA angiography performed in multiple views. tsites 11:53 AM HR=74 bpm, WJLP=979/91 mmhg, SpO2=99 %, Resp=18 B/min 11:55 AM PCI Status Urgent tsites 11:55 AM PCI Indication: PCI for high risk Non-STEMI or unstable angina tsites 11:56 AM Inflation device was opened. tsites 11:56 AM .014 ChoICE PT Extra Support 300cm guide wire across target lesion- successful. reused? No tsites 11:56 AM Time: 11:56 Nitroglycerin 100 mcg Intracoronary Given by Kamari Martins DO tsites 11:57 AM Time: 11:57 Angiomax 0.75mg/kg bolus: 10.5 ml Intravenous Given by Bobby Sharp RN Hubbard pump tsites 11:57 AM Time: 11:57 Angiomax 1.75mg/kg/hr: 24.5 ml Intravenous Given by Bobby Sharp RN [place] pump tsites 11:58 AM HR=71 bpm, HYXA=148/66 mmhg, SpO2=99 %, Resp=23 B/min 12:00 PM 3.0 mm x 15 mm Emerge Monorail balloon across target lesion- successful. reused? No tsites 12:00 PM Time: 12:00 Zofran 4 mg Intravenous Given by Bobby Sharp RN tsites 12:03 PM HR=68 bpm, CVSA=481/80 mmhg, SpO2=98 %, Resp=18 B/min 12:04 PM Balloon catheter removed intact. tsites 12:04 PM 2.0 mm x 15 mm Emerge [place]or[place] balloon across target lesion- successful. reused? No tsites 12:06 PM Time: 11:50LOC: 4 = Oriented but drowsy tsites 12:06 PM Time: 12:06 Versed 1 mg Intravenous Given by Bobby Sharp RN tsites 12:08 PM HR=70 bpm, OMRE=321/77 mmhg, SpO2=98.0 %, Resp=28 B/min 12:08 PM Recorded Pressure: Ao, HR=70, Condition=Condition 1 (Aorta) Ao 108/75/88 12:09 PM Balloon catheter removed intact. tsites 12:10 PM 1.5 mm x 8 mm Emerge [place] balloon across target lesion- successful. reused? No tsites 12:12 PM Time: 12:12 Morphine 2 mg Intravenous Given by Bobby Sharp RN tsites 12:12 PM 1st wire remains in circ tsites 12:13 PM .014 ChoICE PT Extra Support 300cm guide wire across target lesion- successful. reused? No tsites 12:13 PM HR=73 bpm, TSPD=097/86 mmhg, SpO2=96.0 %, Resp=9 B/min 12:18 PM HR=69 bpm, JVWX=651/73 mmhg, SpO2=96 %, Resp=13 B/min 12:21 PM Guide wire removed intact. tsites 12:21 PM Time: 12:06LOC: 4 = Oriented but drowsy tsites 12:21 PM .014 Whisper 300cm guide wire across target lesion- successful. reused? No tsites 12:23 PM HR=71 bpm, XWEC=425/72 mmhg, SpO2=97 %, Resp=8 B/min 12:25 PM 1.0nnj3lq balloon reinserted tsites 12:27 PM Time: 12:27 Versed 1 mg Intravenous Given by Bobby Sharp RN tsites 12:28 PM Recorded ECG: HR=69 Condition=Condition 1 12:28 PM HR=68 bpm, QCWD=171/69 mmhg, SpO2=97.0 %, Resp=15 B/min 12:29 PM Balloon inflated @ 12 mary for 16 seconds tsites 12:30 PM 1.2 mm x 15 mm Emerge OTW balloon across target lesion- successful. reused? No tsites 12:33 PM HR=69 bpm, DXCN=328/70 mmhg, SpO2=97 %, Resp=12 B/min 12:33 PM Coronary Dominance: right tsites 12:33 PM Lesion found in Proximal LAD. Pre Stenosis: 99 Pre SALVATORE Flow: 1: Slow Penetration without Perfusion tsites 12:34 PM Lesion found in Distal Circumflex. Pre Stenosis: 95 Pre SALVATORE Flow: tsites 12:34 PM Lesion found in Proximal RCA. Pre Stenosis: 90 Pre SALVATORE Flow: tsites 12:34 PM Lesion found in Mid RCA. Pre Stenosis: 90 Pre SALVATORE Flow: tsites 12:35 PM whisper wire and balloon removed tsites 12:36 PM .014 ChoICE PT Extra Support 300cm guide wire across target lesion- successful. reused? No tsites 12:36 PM Time: 12:21LOC: 5 = Fully awake and oriented or at pre-proc level tsites 12:37 PM Proximal Left Anterior Descending Coronary Artery with 99% stenosis. If graft is supplying this territory, 0 % stenosis. tsites 12:37 PM Circumflex, Obtuse Marginal, Left Posterior Descending, and Left Posterolateral Coronary Arteries with 95 % stenosis. If graft is supplying this area, 0 % stenosis tsites 12:37 PM Right Coronary, Right Posterior Descending Arteries with Right Posterolateral and Acute Marginal branches with 90 % stenosis. If graft is supplying this area, 0 % stenosis tsites 12:38 PM HR=70 bpm, LLZT=473/69 mmhg, SpO2=97 %, Resp=14 B/min 12:40 PM Time: 12:39 Morphine 2 mg Intravenous Given by Bobby Sharp RN tsites 12:42 PM wire removed from circ tsites 12:43 PM HR=70 bpm, GSFR=705/78 mmhg, SpO2=96 %, Resp=18 B/min 12:44 PM Time: 12:44 Aggrastat Bolus: 33 ml Intravenous Given by Bobby Sharp RN Hubbard pump tsites 12:45 PM Time: 12:44 Aggrastat 5mg/100ml 12 ml Intravenous Given by Bobby Sharp RN Hubbard pump tsites 12:45 PM 1.5nyt9ip balloon reinserted tsites 12:48 PM HR=71 bpm, OSCC=561/67 mmhg, SpO2=97 %, Resp=15 B/min 12:48 PM Time: 12:48 Morphine 2 mg Intravenous Given by Bobby Sharp RN tsites 12:49 PM Balloon inflated @ 12 mary for 41 seconds tsites 12:50 PM 2nd choice PT removed tsites 12:50 PM Balloon catheter removed intact. tsites 12:51 PM Time: 12:36LOC: 4 = Oriented but drowsy tsites 12:52 PM Time: 12:52 Versed 1 mg Intravenous Given by Bobby Sharp RN tsites 12:53 PM HR=68 bpm, JBFJ=000/67 mmhg, SpO2=97 %, Resp=31 B/min 12:57 PM Guide wire removed intact. tsites 12:58 PM jwire reinserted catheter removed tsites 12:58 PM HR=65 bpm, NZJK=740/62 mmhg, SpO2=97 %, Resp=13 B/min 01:00 PM Guide catheter removed intact. tsites 01:00 PM hand injection of the right groin tsites 01:01 PM Sheath exchanged for a 6 Fr 11 cm Terumo [place] sheath [id number] tsites 01:03 PM angiomax and aggrastat dc'd tsites 01:03 PM HR=68 bpm, DVYH=957/58 mmhg, SpO2=96 %, Resp=21 B/min 01:03 PM Time: 13:03 Nitroglycerin 5 mcg/min Intracoronary Given by Bobby Sharp RN tsites 01:04 PM Procedure completed at 13:04 tsites 01:05 PM Sign out completed: Radiation Dose 3277 mGy Fluoro Time: 44.1 Isovue 370 - 200ml contrast 250 ml given by Kamari Martins DO. Complications: NoneCardiac Rehab Consult needed: NoConfirmed administered medications: Yes tsites 01:05 PM Isovue 370 - 200ml,2 Bottle(s) used. tsites 01:05 PM Arterial sheath pulled, Angio-seal closure device used and was Successful S/N. tsites 01:05 PM Post ECG NSR tsites 01:05 PM Post Blood Pressure 108/58 tsites 01:05 PM 13:05 Post Pulses Bilateral DP & PT 1+ tsites 01:06 PM Information taught Cardiac Cath, PCI, and Angioseal tsites 01:06 PM Education needs Procedure, Plan of Care, and Responsibilities of Patient in Care tsites 01:06 PM Learning barriers :None tsites 01:06 PM Education Methods Verbal tsites 01:06 PM Education evaluation Able to repeat information tsites 01:06 PM Site status No bleeding/hematoma - Rt Groin as reported by Georgina Ann RT (R) at 13:06 tsites 01:06 PM Opsite applied tsites 01:08 PM Time: 13:08 Nitroglycerin 10 mcg/min Intracoronary Given by Bobby Sharp RN tsites 01:11 PM Cardiothoracic surgeon consulted by physician tsites 01:16 PM Report given to donn THORNTON Pt taken to ICU Room #8. 13:15 tsites 01:16 PM Delay to floor No tsites 01:16 PM Patient out of room: 13:16 tsites 01:16 PM Family placed in consult room. tsites 01:17 PM paging center notified about Dr. Pardo [facility] Complications Complication None Hemodynamics Pressures Site Systolic/A Wave Diastolic/V Wave Mean AO 118 57 83 AO 141 72 100 AO 155 77 110 AO 108 75 88 Post Procedure Information Blood Pressure: 108/58 mmHg Rhythm: NSR Post procedural instructions were given Site Checks Time Location Status Staff Sheath In? Note 01:06 PM Rt Groin No bleeding/hematoma Georgina Ann RT (R) Pulses Time Site Pre-Procedure Post-Procedure Note Bilateral DP & PT 1+ 1:05:00 PM Bilateral DP & PT 1+ Updated by Georgina Hope RT (R) on 05/28/2017 1:19:01 PM Georgina Hope RT electronically signed on 05/28/2017 1:29:07 PM with status of Final
[2017-05-28] MEDS: 0.9 % Sodium Chloride 1,000 ML IVC SCH ×2 (13:45→20:30)
[2017-05-28] MEDS: Nitroglycerin 25 MG/250 ML INFUS..BTL IVC SCH (13:47)
[2017-05-28] MEDS: Metoprolol XL (24 HR) Succ 25 MG TAB.ER.24H PO SCH (13:48)
[2017-05-28] MEDS: *HR* Morphine 2 MG/ML SYRINGE IVP PRN (14:01)
[2017-05-28] MEDS ORDERED: *HR* Heparin 5,000 UNIT/ML VIAL IVP PRN ×2 (14:20)
[2017-05-28] MEDS ORDERED: *HR* Heparin 5,000 UNIT/ML VIAL IVP ONE (14:20)
--- NOTE | 2017-05-28 15:07 | Cardiothoracic Consult Note ---
Date of Encounter: 05/28/17 Time of Encounter: 15:02 Assessment and Plan (1) CAD (coronary artery disease) Current Visit: Yes Status: Acute The assessment and plan as outlined above was discussed with the patient and/or family members who expressed understanding and agreement. All questions were answered. The patient has triple-vessel disease with decreased ventricular function. She also has moderate aortic valve stenosis, mild to moderate aortic valve regurgitation and mild to moderate mitral valve regurgitation. She has had a myocardial infarction with positive troponin. Her vessels are heavily calcified. I discussed possible options with her and her family. These include medical therapy, Rotablator and open heart surgery. The patient and her family are against open heart surgery. I agree that she is extremely high risk. The LAD is a small vessel and may not be good graft. The distal circumflex is also small. Rotablator would need to be done in [place] and would also be at increased risk. At this point, the patient is pain-free. She and her family will consider their options. Qualifiers: Coronary Disease-Associated Artery/Lesion type: [place] artery [place] vs. transplanted heart: [place] heart Associated angina: with unstable angina Qualified Code(s): I25.110 - Atherosclerotic heart disease of [place] coronary artery with unstable angina pectoris - History of Present Illness History of present illness: Ms. Houston is a 86 year old female History of present illness. The patient is an 86-year-old female who has a history of a previous myocardial infarction. She presented with chest pain and a positive troponin of 2.9. Echocardiogram revealed decreased ejection fraction of 40%. She does have moderate aortic valve stenosis. She has mild to moderate aortic regurgitation. She has mild to moderate mitral regurgitation cardiac catheterization done today revealed severe triple-vessel disease. The LAD is type proximally, but is a small distal vessel. All her coronaries are heavily calcified. It was attempted to open this with PTCA, but this was unsuccessful. The circumflex had a first marginal branch which appeared to be not blocked. The distal circumflex was small. The right coronary artery was severely blocked and was a large vessel. Past medical history is notable for hypertension, hyperlipidemia, GERD and a stroke. She has had bilateral carotid endarterectomies, bilateral hip replacements, a right knee replacement, a hysterectomy and a cholecystectomy. She has also had shoulder surgery. Social history. The patient does not smoke and rarely drinks alcohol. Family history strongly positive for coronary artery disease. Review of systems is negative for saphenous vein varicosities or strippings. Past Med Surg Social Fam HX - Past Medical History Medical history: coronary artery disease, GERD, hyperlipidemia, hypertension, TIA, other Psychiatric history: no psych history - Past Surgical History Surgical History: hip replacement, hysterectomy, other - Social History Smoking Status: Never smoker Smokeless Tobacco Status: No Alcohol use: none Drug use: none - Family History Mother Hx Family Cardiac Disorders: Yes Brother Hx Family Cardiac Disorders: Yes Medications and Allergies Aspirin [Adult Low Dose Aspirin EC] 81 mg PO DAILY 10/08/15 [History] Atorvastatin [Lipitor] 40 mg PO DAILY 10/08/15 [History] Diltiazem HCl [Diltiazem 24Hr Cd] 240 mg PO DAILY 10/08/15 [History] Olmesartan Medoxomil [Benicar] 40 mg PO DAILY 10/08/15 [History] Pantoprazole Sodium [Protonix] 40 mg PO DAILY 10/08/15 [History] HYDROcodone/Acet 5/325 mg [[place] 5-325 mg] 1 tab PO Q8H PRN 09/16/16 [History] Nitroglycerin 0.4 mg SL Q5MIN PRN 09/16/16 [History] Isosorbide MONOnitrate (24 HR) [Imdur] 60 mg PO DAILY 05/27/17 [History] hydroCHLOROthiazide [Hydrochlorothiazide] 25 mg PO DAILY 05/27/17 [History] 3 Allergy/AdvReac Type Severity Reaction Status Date / Time acetaminophen [From Percocet] AdvReac Nausea Verified 09/16/16 15:18 Oxycodone [From Percocet] AdvReac Nausea Verified 09/16/16 15:18 All Systems Review: A 10-system review of systems was performed and is negative for pertinent findings except as documented above in the HPI. Physical Examination Vital Signs, Last 4 Hours Temp Pulse Resp BP Pulse Ox 05/28/17 13:32 97.1 F L 62 16 97/60 96 The patient has had right eye surgery. She is edentulous. Neck is supple. Trachea in the midline. She is status post bilateral carotid endarterectomies. Lungs are clear to percussion and auscultation. Heart is in a regular rate and rhythm. She has a 3/6 systolic murmur heard best in the aortic area. Abdomen is benign. She is status post cholecystectomy and hysterectomy. No tenderness, rebound or guarding. Extremities without edema. No saphenous vein varicosities or strippings. Neuro exam. Motor and sensory intact. Results 05/28/17 02:08 05/28/17 02:08 Lab Results, Last 24 hours 05/28/17 05/28/17 05/28/17 02:08 02:08 02:08 WBC 10.4 Hgb 11.7 Hct 34.6 L Plt Count 294 INR 1.2 APTT Sodium 138 Potassium 3.7 Chloride 106 Carbon Dioxide 24 BUN 12 Creatinine 0.73 Glucose 108 H Calcium 9.0 Magnesium 2.0 Troponin I 05/28/17 05/28/17 05/28/17 02:08 04:03 09:41 WBC Hgb Hct Plt Count INR APTT 79.8 H D Sodium Potassium Chloride Carbon Dioxide BUN Creatinine Glucose Calcium Magnesium Troponin I 2.87 H* 2.27 H* Consult Discharge Plan - Plan Referrals: Reji Mccray DO [Primary Care Provider] -
[2017-05-28] MEDS: Heparin 25,000 UNIT/500 ML D5W 25,000 UNIT/500 ML MLS IVC SCH ×2 (15:08→20:30)
[2017-05-28 16:18] LABS: Hematocrit 36.5 % (35.3-44.9); Hemoglobin 12.4 g/dL (11.5-15.4); Mean Corpuscular Hemoglobin 31.6 pg (28.0-33.3); Mean Corpuscular Volume 92.9 fL (83.0-100.0); Mean Platelet Volume 10.2 fL (9.4-12.4); Platelet Count 259 K/mcL (140-400); Red Blood Count 3.93 M/mcL (3.82-4.97); Red Cell Distribution Width 13.2 % (11.5-14.5)
[2017-05-28 16:26] LABS: INR 1.7; Prothrombin Time 18.3 Seconds (9.4-12.1)
[2017-05-28 20:47] LABS: Activated Partial Thrombo Time 139.1 Seconds (26.0-36.0)
[2017-05-28 20:55] LABS: Heparin anti-factor XA UFH 0.68 IU/mL (0.30-0.70)
[2017-05-29 04:37] LABS: Basophils % 0.1 %; Hematocrit 32.5 % (35.3-44.9); Immature Granulocytes % 0.5 % (0-4); Lymphocytes # 0.9 K/mcL (0.6-4.6); Lymphocytes % 6.2 %; Mean Corpuscular HGB Conc 32.6 g/dL (31.6-35.5); Mean Corpuscular Hemoglobin 30.8 pg (28.0-33.3); Mean Corpuscular Volume 94.5 fL (83.0-100.0); Mean Platelet Volume 10.1 fL (9.4-12.4); Monocytes # 1.3 K/mcL (0.0-1.3); Monocytes % 8.9 %; Neutrophils # 12.5 K/mcL (1.6-8.9); Platelet Count 220 K/mcL (140-400); Red Blood Count 3.44 M/mcL (3.82-4.97); Red Cell Distribution Width 13.3 % (11.5-14.5); Segmented Neutrophils % 84.3 %
[2017-05-29 04:38] LABS: Hemoglobin 10.6 g/dL (11.5-15.4)
[2017-05-29 04:54] LABS: BUN/Creatinine Ratio 16 (6-26); Blood Urea Nitrogen 14 mg/dL (7-20); Calcium 8.4 mg/dL (8.6-10.8); Carbon Dioxide 22 mEq/L (19-29); Chloride 104 mEq/L (98-109); Glucose 157 mg/dL (70-99); Osmolality,Calculated 286 (280-300); Potassium 3.9 mEq/L (3.5-4.5); Sodium 136 mEq/L (136-145); eGFR For African Americans > 60 (> 60); eGFR For Non-African Americans > 60 (> 60)
[2017-05-29] MEDS: *HR* Heparin 5,000 UNIT/ML VIAL IVP PRN ×2 (05:44→13:28)
[2017-05-29] MEDS: Valsartan 160 MG TABLET PO SCH (08:26)
[2017-05-29] MEDS: Isosorbide MONOnitrate (24 HR) 60 MG TAB.ER.24H PO SCH (08:26)
[2017-05-29] MEDS: Metoprolol XL (24 HR) Succ 25 MG TAB.ER.24H PO SCH (08:26)
[2017-05-29] MEDS: Aspirin Enteric Coated 81 MG Tablet PO SCH (08:26)
[2017-05-29] MEDS: 0.9 % Sodium Chloride 1,000 ML IVC SCH ×2 (08:27→17:33)
[2017-05-29] MEDS: Diltiazem CD (24hr) 120 MG CAPSULE PO SCH (08:27)
--- NOTE | 2017-05-29 11:23 | Cardiology Progress Note ---
Date of Encounter: 05/29/17 Time of Encounter: 10:00 Assessment and Plan (1) NSTEMI (non-ST elevated myocardial infarction) Current Visit: Yes Status: Acute Troponins up to 2.87 and trending down. Denies chest pain today. [facility] revealed severe three vessel CAD. CT surgery seen and recommendations given. Patient and family declined OHS. High risk PCI was recommended. Discussed with Dr. Kinsey, recommend interventionalist review films tuesday to decide if procedure can be completed here verses transfer to outside hospital. Patient is discussing options with family including proceeding with PCI verses medical management. Patient also voiced concern of daughter being out of town and not wanting to do until she returns in a week unless waiting was not recommended. Reports history of CAD seen one year ago that was diagnosed at [facility]. She had failed attempt at PCI at that time. She opted for continued medical management then. She is now favoring PCI due to recurrent symptoms. Echocardiogram revealed decreased ejection fraction of 40%. She does have moderate aortic valve stenosis. She has mild to moderate aortic regurgitation. She has mild to moderate mitral regurgitation. Currently euvolemic on exam. Hgb noted to drop to 10.6 from 12. May be diluted. Mild bleeding last night at cath site. Otherwise no bleeding. Continue to monitor. Continue heparin gtt. ASA, Statin, BB, ARB. Heparin gtt for at least 48 hours. On low dose NTG gtt for chest pain. Titrate at needed. (2) CAD (coronary artery disease) Current Visit: Yes Status: Acute ASA, Statin, BB. Qualifiers: Coronary Disease-Associated Artery/Lesion type: [place] artery [place] vs. transplanted heart: [place] heart Associated angina: with unstable angina Qualified Code(s): I25.110 - Atherosclerotic heart disease of [place] coronary artery with unstable angina pectoris (3) Hypertension Current Visit: Yes Status: Acute B/p acceptable. Qualifiers: Hypertension type: essential hypertension Qualified Code(s): I10 - Essential (primary) hypertension (4) Hyperlipemia Current Visit: Yes Status: Acute Continue statin. Qualifiers: Hyperlipidemia type: unspecified Qualified Code(s): E78.5 - Hyperlipidemia , unspecified Discussion w patient/family: The assessment and plan as outlined above was discussed with the patient and/or family members who expressed understanding and agreement. All questions were answered. Thank you for involving us in the care of your patient. Please call with any questions. Subjective Principal diagnosis: acute OR Interval history: Ms. Houston is sitting in her chair with no complaints. Continues to be on NTG and heparin gtt. Developed hematoma in right groin through the night that is now resolved. Dressing remains intact. Mild amount of old blood on drainage. Patient would like to discuss her options with her family prior to making further decisions. Objective Vital Signs, Last 4 Hours Temp Pulse Resp BP Pulse Ox 05/29/17 11:15 97.5 F L 05/29/17 10:00 63 16 111/69 96 05/29/17 09:00 67 20 121/72 97 05/29/17 08:00 70 20 123/78 98 05/29/17 07:57 97.8 F General: Conversant, No Apparent Distress, Other (Frail elderly female) HEENT: Atraumatic, Normocephaly, Mucus Membranes Moist Neck: No JVD, Normal carotid pulses Cardiac: Reg Rate and Rhythm, Normal S1 and S2, No Murmur Lungs: Normal Breath Sounds, No Wheeze, Rales, Rhonchi Neuro: Alert and responsive, No focal deficits noted Abdomen: Soft, Non-Tender Skin: No rashes noted on visualized skin Musculoskeletal: No Chest Wall Tenderness, Other (Right groin soft with ecchymosis, old blood noted on drainge. WIll leave on today. Nurses changing as needed. ) Extremities: No Clubbing, No Cyanosis, No Edema, Normal Pulses Results 05/29/17 04:20 05/29/17 04:20 Lab Results 05/28/17 05/28/17 05/28/17 16:06 16:06 20:15 WBC 14.8 H Hgb 12.4 Hct 36.5 Plt Count 259 INR 1.7 APTT TNP 139.1 H* D Sodium Potassium Chloride Carbon Dioxide BUN Creatinine Glucose Calcium 05/28/17 05/29/17 05/29/17 22:30 04:20 04:20 WBC 14.8 H Hgb 10.6 L D Hct 32.5 L Plt Count 220 INR APTT 43.2 H D Sodium 136 Potassium 3.9 Chloride 104 Carbon Dioxide 22 BUN 14 Creatinine 0.85 Glucose 157 H Calcium 8.4 L 05/29/17 04:20 WBC Hgb Hct Plt Count INR APTT 42.0 H Sodium Potassium Chloride Carbon Dioxide BUN Creatinine Glucose Calcium - Imaging and Cardiology Echo: report reviewed Cardiac cath: report reviewed - EKG Interpretation EKG results cardiology: personally reviewed Consult Discharge Plan - Plan Referrals: Reji Mccray DO [Primary Care Provider] -
--- NOTE | 2017-05-29 13:51 | Internal Med Progress Note ---
<Vidhya Franklin - Last Filed: 05/29/17 13:48> Date of Encounter: 05/29/17 Time of Encounter: 13:30 - Assessment and plan (1) NSTEMI (non-ST elevated myocardial infarction) Current Visit: Yes Status: Acute Assessment and plan: Patient presented to the hospital with chest pain. Diagnosed with NSTEMI EKG showed new RBBB and subtle [address] elevation in I avl. elevated troponins 0.31, 2.87 TTE mild-moderate left ventricular systolic dysfunction LVEF 40%, moderate , mild-moderate AR, mild-moderate MR CXR no acute abnormality she currently reports no chest pain or shortness of breath LHC showed severe 3 vessel CAD. -Interventionalists to review films on Tuesday to decide if PCI can be done here vs transfer to outside hospital. Patient is not a good candidate for CABG/ surgery -continue heparin, aspirin, atorvastatin, Toprol, valsartan, isosorbide, diltiazem -continue telemetry -nitroglycerin PRN pain (2) CAD (coronary artery disease) Current Visit: Yes Status: Acute Assessment and plan: Patient has history of LHC 05/2016 at [facility] with failed attempt at PCI -Continue medications Qualifiers: Coronary Disease-Associated Artery/Lesion type: [place] artery [place] vs. transplanted heart: [place] heart Associated angina: with unstable angina Qualified Code(s): I25.110 - Atherosclerotic heart disease of [place] coronary artery with unstable angina pectoris (3) Hypertension Current Visit: Yes Status: Acute Assessment and plan: Patient history of hypertension -continue home medications of diltiazem, isosorbide Qualifiers: Hypertension type: essential hypertension Qualified Code(s): I10 - Essential (primary) hypertension (4) Hyperlipemia Current Visit: Yes Status: Acute Assessment and plan: Patient has history of hyperlipidemia continue atorvastatin Qualifiers: Hyperlipidemia type: unspecified Qualified Code(s): E78.5 - Hyperlipidemia , unspecified (5) DVT prophylaxis Current Visit: Yes Status: Acute Assessment and plan: Heparin - Subjective Interval history: Sitting up in chair comfortably in no acute distress she denies chest pain, shortness of breath, headache nausea, vomiting, abdominal pain. She has no complaints at this time She stated that she spoke with cardiology and will discuss with her family about everything. - Constitutional Vitals: Temp Pulse Resp BP Pulse Ox 97.5 F L 70 20 122/76 96 05/29/17 11:15 05/29/17 12:00 05/29/17 12:00 05/29/17 12:00 05/29/17 12:00 Exam: Gen.: Vitals noted. No acute distress. AAOx3 HEENT: oropharynx clear, Normocephalic, atraumatic Cardiac: RRR, systolic murmur, +S1/S2 Pulmonary: CTA bilaterally, no wheezes, rales or rhonchi, equal chest expansion Abdomen: soft, nontender, Bowel sounds noted, no guarding MSK: ROM intact, no joint swelling noted Extremities: no BLE edema, nontender calf, no cyanosis or clubbing Neuro: A&Ox3, moves all extremities Psych: Appropriate mood and behavior Internal Medicine: Result - Labs CBC & Chem 7: 05/29/17 04:20 05/29/17 04:20 Labs: Short CBC 05/28/17 05/29/17 Range/Units 16:06 04:20 WBC 14.8 H 14.8 H (4.3-11.1) K/mcL Hgb 12.4 10.6 L D (11.5-15.4) g/dL Hct 36.5 32.5 L (35.3-44.9) % Plt Count 259 220 (140-400) K/mcL Neutrophils # 12.5 H (1.6-8.9) K/mcL BMP 05/29/17 04:20 Sodium 136 Potassium 3.9 Chloride 104 Carbon Dioxide 22 BUN 14 Creatinine 0.85 Glucose 157 H Calcium 8.4 L - ABG Interpretation ABG results: PT/INR, D-dimer PT 18.3 Seconds (9.4-12.1) H 05/28/17 16:06 Consult Discharge Plan - Plan Referrals: Reji Mccray DO [Primary Care Provider] - <Sundar Cox H - Last Filed: 05/29/17 14:10> Date of Encounter: 05/29/17 - Constitutional Vitals: Temp Pulse Resp BP Pulse Ox 97.5 F L 70 20 122/76 96 05/29/17 11:15 05/29/17 12:00 05/29/17 12:00 05/29/17 12:00 05/29/17 12:00 Internal Medicine: Result - Labs CBC & Chem 7: 05/29/17 04:20 05/29/17 04:20 Labs: Short CBC 05/28/17 05/29/17 Range/Units 16:06 04:20 WBC 14.8 H 14.8 H (4.3-11.1) K/mcL Hgb 12.4 10.6 L D (11.5-15.4) g/dL Hct 36.5 32.5 L (35.3-44.9) % Plt Count 259 220 (140-400) K/mcL Neutrophils # 12.5 H (1.6-8.9) K/mcL BMP 05/29/17 04:20 Sodium 136 Potassium 3.9 Chloride 104 Carbon Dioxide 22 BUN 14 Creatinine 0.85 Glucose 157 H Calcium 8.4 L - ABG Interpretation ABG results: PT/INR, D-dimer PT 18.3 Seconds (9.4-12.1) H 05/28/17 16:06 - Attending Attestation Interventional cardiology recommendations appreciated I examined this patient and my medical decision-making was reviewed with the Resident Physician. I agree with the documented findings, disposition and treatment plan as described except to the extent set forth below.
[2017-05-29] MEDS: Nitroglycerin 25 MG/250 ML INFUS..BTL IVC SCH (17:34)
--- NOTE | 2017-05-29 19:26 | Electrocardiograph Report ---
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
[2017-05-29] MEDS: *HR* Morphine 2 MG/ML SYRINGE IVP PRN (23:40)
[2017-05-30] MEDS ORDERED: Ondansetron 4 MG/2 ML VIAL IVP PRN (01:18)
[2017-05-30] MEDS: Heparin 25,000 UNIT/500 ML D5W 25,000 UNIT/500 ML MLS IVC SCH (03:41)
[2017-05-30] MEDS: 0.9 % Sodium Chloride 1,000 ML IVC SCH ×2 (03:41→14:31)
[2017-05-30 03:57] LABS: Hematocrit 28.3 % (35.3-44.9); Hemoglobin 9.2 g/dL (11.5-15.4); Mean Corpuscular HGB Conc 32.5 g/dL (31.6-35.5); Mean Corpuscular Hemoglobin 30.8 pg (28.0-33.3); Mean Corpuscular Volume 94.6 fL (83.0-100.0); Mean Platelet Volume 10.2 fL (9.4-12.4); Platelet Count 170 K/mcL (140-400); Red Blood Count 2.99 M/mcL (3.82-4.97); Red Cell Distribution Width 13.2 % (11.5-14.5)
[2017-05-30 04:13] LABS: BUN/Creatinine Ratio 18 (6-26); Blood Urea Nitrogen 12 mg/dL (7-20); Calcium 7.8 mg/dL (8.6-10.8); Carbon Dioxide 22 mEq/L (19-29); Chloride 105 mEq/L (98-109); Glucose 136 mg/dL (70-99); Osmolality,Calculated 278 (280-300); Potassium 3.9 mEq/L (3.5-4.5); Sodium 133 mEq/L (136-145); eGFR For African Americans > 60 (> 60); eGFR For Non-African Americans > 60 (> 60)
--- NOTE | 2017-05-30 05:53 | Cardiology Progress Note ---
Date of Encounter: 05/30/17 Time of Encounter: 05:45 Assessment and Plan (1) STEMI (ST elevation myocardial infarction) Current Visit: Yes Status: Acute Ongoing chest pain, worsening EKG, troponins elevating, consistent with occlusion of LAD. Unfortunately, unsuccessful crossing proximal severely calcified eccentric LAD lesion by percutaneous techniques, not a surgical candidate for CABG due to advanced age and multiple co-morbidities. Long conversation with pt at bedside and with joey Xiong telephonically, no viable option for revascularization in this vascular territory. Discussed consideration of rotational atherectomy, however severe proximal tortuosity and heavy thrombus burden, very high risk of perforation and no reflow if were able to cross lesion with device. A better option would be orbital atherectomy across heavily calcified lesion, same risks but slightly lower. That device ( CSI) is not available in our facility, pt declines consideration for transfer to facility with that capacity. Long discussion with pt and joey Xiong, recommend continued medical tx, add ntg infusion for pain relief, may help with anterior wall perfusion from severely diseased RCA. Overall prognosis is poor, There are no clinical trials to help estimate mortality in this situation, in discussion with patient and family I am roughly estimating 30% mortality in next several days. Goals are pain control and hemodynamic support. Qualifiers: Involved coronary artery: LAD coronary artery Qualified Code(s): I21.02 - ST elevation (STEMI) myocardial infarction involving left anterior descending coronary artery Discussion w patient/family: The assessment and plan as outlined above was discussed with the patient and/or family members who expressed understanding and agreement. All questions were answered. Thank you for involving us in the care of your patient. Please call with any questions. Subjective Principal diagnosis: acute NE Interval history: Pt continues to have chest pain, on and off, most recent pains started approx 3 am, 4/10 heaviness under left breast, associated with nausea, not SOB or diaphoresis, improved with IV morphine. Objective Vital Signs, Last 4 Hours Temp Pulse Resp BP Pulse Ox 05/30/17 05:00 78 18 112/71 96 05/30/17 04:00 72 20 118/74 95 05/30/17 03:47 97.6 F 05/30/17 03:00 76 20 125/75 96 05/30/17 02:00 73 16 112/73 96 General: Conversant HEENT: Atraumatic Neck: No JVD Cardiac: Reg Rate and Rhythm, Normal S1 and S2, No Murmur Lungs: Normal Breath Sounds Neuro: Alert and responsive, No focal deficits noted Abdomen: Soft Skin: No rashes noted on visualized skin Musculoskeletal: No Chest Wall Tenderness Extremities: No Clubbing, No Cyanosis Results 05/30/17 03:50 05/30/17 03:50 Lab Results 05/29/17 05/30/17 05/30/17 19:25 03:50 03:50 WBC 13.6 H Hgb 9.2 L Hct 28.3 L Plt Count 170 APTT 105.9 H D Sodium 133 L Potassium 3.9 Chloride 105 Carbon Dioxide 22 BUN 12 Creatinine 0.65 Glucose 136 H Calcium 7.8 L Troponin I 05/30/17 05/30/17 03:50 03:50 WBC Hgb Hct Plt Count APTT 57.1 H Sodium Potassium Chloride Carbon Dioxide BUN Creatinine Glucose Calcium Troponin I 22.94 H* - EKG Interpretation EKG results cardiology: personally reviewed (Worsening ST seg elevation anterior leads, anterior acute myocardial infarction.) Consult Discharge Plan - Plan Referrals: Reji Mccray DO [Primary Care Provider] -
[2017-05-30] MEDS: *HR* Morphine 2 MG/ML SYRINGE IVP PRN ×3 (05:57→19:49)
--- NOTE | 2017-05-30 06:17 | Electrocardiograph Report ---
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
[2017-05-30] MEDS ORDERED: *HR* Morphine 2 MG/ML SYRINGE IVP PRN (06:25)
[2017-05-30] MEDS: Nitroglycerin 25 MG/250 ML INFUS..BTL IVC SCH (08:17)
[2017-05-30] MEDS: Valsartan 160 MG TABLET PO SCH (09:37)
[2017-05-30] MEDS: Aspirin Enteric Coated 81 MG Tablet PO SCH (09:37)
[2017-05-30] MEDS: Diltiazem CD (24hr) 120 MG CAPSULE PO SCH (09:37)
[2017-05-30] MEDS: Metoprolol XL (24 HR) Succ 25 MG TAB.ER.24H PO SCH (09:37)
[2017-05-30] MEDS: Isosorbide MONOnitrate (24 HR) 60 MG TAB.ER.24H PO SCH (09:38)
--- NOTE | 2017-05-30 13:59 | Electrocardiograph Report ---
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
--- NOTE | 2017-05-30 15:05 | Internal Med Progress Note ---
Date of Encounter: 05/30/17 Time of Encounter: 15:01 - Assessment and plan (1) STEMI (ST elevation myocardial infarction) Current Visit: Yes Status: Acute Assessment and plan: Current Visit: Yes Status: Acute Assessment and plan: Patient presented to the hospital with chest pain. Diagnosed with NSTEMI EKG showed new RBBB and subtle [address] elevation in I avl. elevated troponins 0.31, 2.87, third troponin was 22.94 likely from prior cardiac catheterization TTE mild-moderate left ventricular systolic dysfunction LVEF 40%, moderate , mild-moderate AR, mild-moderate MR CXR no acute abnormality she currently reports no chest pain or shortness of breath LHC showed severe 3 vessel CAD. Awaiting cardiology recommendations to consider possible transfer to [facility] and evaluate other options Poor prognosis -continue heparin, aspirin, atorvastatin, Toprol, valsartan, isosorbide, diltiazem -continue telemetry -nitroglycerin drip to control pain (2) CAD (coronary artery disease) Current Visit: Yes Status: Acute Assessment and plan: Patient has history of LHC 05/2016 at [facility] with failed attempt at PCI -Continue medications Qualifiers: Coronary Disease-Associated Artery/Lesion type: [place] artery [place] vs. transplanted heart: [place] heart Associated angina: with unstable angina Qualified Code(s): I25.110 - Atherosclerotic heart disease of [place] coronary artery with unstable angina pectoris (3) Hypertension Current Visit: Yes Status: Acute Assessment and plan: Patient history of hypertension -continue home medications of diltiazem, isosorbide Qualifiers: Hypertension type: essential hypertension Qualified Code(s): I10 - Essential (primary) hypertension (4) Hyperlipemia Current Visit: Yes Status: Acute Assessment and plan: Patient has history of hyperlipidemia continue atorvastatin Qualifiers: Hyperlipidemia type: unspecified Qualified Code(s): E78.5 - Hyperlipidemia , unspecified (5) DVT prophylaxis Current Visit: Yes Status: Acute Assessment and plan: Heparin Qualifiers: Involved coronary artery: LAD coronary artery Qualified Code(s): I21.02 - ST elevation (STEMI) myocardial infarction involving left anterior descending coronary artery - Subjective Interval history: Had an episode of severe chest pain last night, denies any chest pain at the moment, no shortness of breath, no abdominal pain or dysuria. No fevers - Constitutional Vitals: Temp Pulse Resp BP Pulse Ox 98.2 F 85 16 85/57 94 05/30/17 12:15 05/30/17 14:00 05/30/17 14:00 05/30/17 14:00 05/30/17 14:00 General appearance: Present: A&O X 3 - Head Head exam: Present: atraumatic, normocephalic - Eye Eye exam: Present: PERRL, conjuntiva pink, sclera anicteric Pupils: Present: PERRL - Neck Neck exam general surgery: Present: supple, trachea midline. Absent: lymphadenopathy - Respiratory Respiratory exam: Present: CTAB. Absent: accessory muscle use, rales, rhonchi, wheezes - Cardiovascular Cardiovascular exam: Present: RRR, +S1, +S2, systolic murmur (Loud systolic and diastolic murmurs heard into the aortic area and to the left axilla 2 out of 6) . Absent: diastolic murmur, gallop, rubs - GI/Abdominal GI/Abdominal exam: Present: normal bowel sounds, soft, no peritoneal signs. Absent: distended, tenderness - Extremities Exam Extremities exam: Present: warm, radial pulses palpable and symmetrical. Absent : calf tenderness, cyanotic, pedal edema - Neurological Exam Neurological exam: Present: CN II-XII intact, oriented X3, no focal deficits. Absent: pronater drift, facial droop, speech deficit Additional comments: Kyphosis - Skin Skin exam: Present: dry, intact Internal Medicine: Result - Labs CBC & Chem 7: 05/30/17 03:50 05/30/17 03:50 Labs: Short CBC 05/30/17 Range/Units 03:50 WBC 13.6 H (4.3-11.1) K/mcL Hgb 9.2 L (11.5-15.4) g/dL Hct 28.3 L (35.3-44.9) % Plt Count 170 (140-400) K/mcL BMP 05/30/17 03:50 Sodium 133 L Potassium 3.9 Chloride 105 Carbon Dioxide 22 BUN 12 Creatinine 0.65 Glucose 136 H Calcium 7.8 L Cardiac Enzymes 05/30/17 Range/Units 03:50 Troponin I 22.94 H* (0-0.03) ng/mL - ABG Interpretation ABG results: PT/INR, D-dimer PT 18.3 Seconds (9.4-12.1) H 05/28/17 16:06 - Impressions Impressions Echocardiogram Limited Views 05/30/17 10:08 Impressions: LVEF 40%. LV systolic dysfunction with regional variations - similar in appearance to echo 05/28/2017. Normal right ventricular size and function. Left Ventricular Wall Motion: Rest Echo Findings The apical inferior, mid inferior septal, mid anterior septal and mid inferior lateral bain were hypokinetic. The apex, apical anterior, apical septal and apical lateral bain were akinetic. All other wall segments showed normal motion. Findings: Study Quality * Technically adequate exam. ECG Findings * Artifact noted on rhythm recording. Possibly sinus rhythm. Left Ventricle * LVEF 40%. * Normal LV size. * Mild increase in LV wall thickness. Aorta * Normally sized aortic root. IVC * The IVC is dilated. Right Ventricle * Normal right ventricular structure and function. Consult Discharge Plan - Plan Referrals: Reji Mccray DO [Primary Care Provider] -
--- NOTE | 2017-05-30 16:48 | Event Note ---
Date of Encounter: 05/30/17 Time of Encounter: 16:00 - Cardiology Event Note Discussed and reviewed patient's condition and plan of care with patient and family. At this time, patient and family prefer to stay at [place] for care. Patient is currently chest pain free. Will continue heparin drip. Will continue to monitor.
[2017-05-30 20:40] LABS: CK-BB (CK isoenzymes) 0 % (0-0); CK-MB (CK isoenzymes) 2 % (0-4); CK-MM (CK-isoenzymes) 98 % (96-100)
[2017-05-31] MEDS: 0.9 % Sodium Chloride 1,000 ML IVC SCH (03:25)
[2017-05-31 05:00] LABS: Hematocrit 25.8 % (35.3-44.9); Hemoglobin 8.5 g/dL (11.5-15.4); Mean Corpuscular HGB Conc 32.9 g/dL (31.6-35.5); Mean Corpuscular Hemoglobin 31.7 pg (28.0-33.3); Mean Corpuscular Volume 96.3 fL (83.0-100.0); Mean Platelet Volume 10.8 fL (9.4-12.4); Platelet Count 177 K/mcL (140-400); Red Blood Count 2.68 M/mcL (3.82-4.97); Red Cell Distribution Width 13.6 % (11.5-14.5)
[2017-05-31 05:15] LABS: Calcium 7.7 mg/dL (8.6-10.8)
[2017-05-31 08:16] LABS: CK Total (Ck Isoenzymes) 146 U/L (20-180)
[2017-05-31] MEDS: Aspirin Enteric Coated 81 MG Tablet PO SCH (09:26)
[2017-05-31] MEDS: Diltiazem CD (24hr) 120 MG CAPSULE PO SCH (09:26)
[2017-05-31] MEDS: Isosorbide MONOnitrate (24 HR) 60 MG TAB.ER.24H PO SCH (09:27)
[2017-05-31] MEDS: Valsartan 160 MG TABLET PO SCH (09:27)
[2017-05-31] MEDS: Metoprolol XL (24 HR) Succ 25 MG TAB.ER.24H PO SCH (09:27)
--- NOTE | 2017-05-31 09:59 | Event Note ---
Date of Encounter: 05/31/17 Time of Encounter: 09:00 - Cardiology Event Note Received a page from RN stating that patient and family are requesting transfer. I spoke with patient and family who state they would like to be transferred to [facility]. Patient is currently chest pain free. Notified hospitalist, , of request for transfer.
--- NOTE | 2017-05-31 10:48 | Transfer Summary ---
Date of Encounter: 05/31/17 Time of Encounter: 10:45 Transfer Discharge Sum: Diag - Discharge Diagnosis (1) STEMI (ST elevation myocardial infarction) Status: Acute (2) CAD (coronary artery disease) Status: Chronic (3) Hyperlipemia Status: Chronic (4) Hypertension Status: Chronic Transfer Discharge Sum: Med - Medications Active and Home Medications: Home Medications Aspirin [Adult Low Dose Aspirin EC] 81 mg PO DAILY 10/08/15 [History Confirmed 05/27/17] Atorvastatin [Lipitor] 40 mg PO DAILY 10/08/15 [History Confirmed 05/27/17] Diltiazem HCl [Diltiazem 24Hr Cd] 240 mg PO DAILY 10/08/15 [History Confirmed ] Olmesartan Medoxomil [Benicar] 40 mg PO DAILY 10/08/15 [History Confirmed ] Pantoprazole Sodium [Protonix] 40 mg PO DAILY 10/08/15 [History Confirmed ] HYDROcodone/Acet 5/325 mg [[place] 5-325 mg] 1 tab PO Q8H PRN 09/16/16 [History Confirmed 05/27/17] Nitroglycerin 0.4 mg SL Q5MIN PRN 09/16/16 [History Confirmed 05/27/17] Isosorbide MONOnitrate (24 HR) [Imdur] 60 mg PO DAILY 05/27/17 [History Confirmed 05/27/17] hydroCHLOROthiazide [Hydrochlorothiazide] 25 mg PO DAILY 05/27/17 [History Confirmed 05/27/17] Active Medications Aspirin (Aspirin Ec) 81 mg PO DAILY [facility] Stop: 11/27/17 09:01 Last Admin: 05/31/17 09:26 Dose: 81 mg Atorvastatin Calcium (Lipitor) 40 mg PO DAILY [facility] Stop: 11/27/17 09:01 Last Admin: 05/31/17 09:27 Dose: 40 mg Diltiazem HCl (Cardizem Cd) 120 mg PO DAILY [facility] Stop: 11/28/17 09:01 Last Admin: 05/31/17 09:26 Dose: 120 mg Heparin Sodium (Porcine) (Heparin) 4,000 unit IVP Q6HR PRN PRN Reason: SEE COMMENTS Stop: 11/27/17 14:21 Heparin Sodium (Porcine) (Heparin) 2,000 unit 30 unit/kg (2000 unit) IVP Q6H PRN PRN Reason: SEE COMMENTS Stop: 11/27/17 14:21 Nitroglycerin (Nitroglycerin Premix 25 Mg/250 Ml) 25 mg in 250 mls @ 6 mls/hr IVC .Q24H NANCY; 10 MCG/MIN PRN Reason: Protocol Stop: 11/27/17 13:31 Last Titration: 05/30/17 11:57 Dose: 0 mcg/min, 0 mls/hr Heparin Sodium/Dextrose (Heparin 25,000 Unit/500 Ml D5w) 25,000 unit in 500 mls @ 16.329 mls/hr IVC .Q24H NNACY; 12 UNIT/KG/HR PRN Reason: Protocol Stop: 11/27/17 14:31 Last Titration: 05/31/17 05:50 Dose: 18 unit/kg/hr, 24.494 mls/hr Isosorbide Mononitrate (Imdur) 60 mg PO DAILY [facility] Stop: 11/27/17 09:01 Last Admin: 05/31/17 09:27 Dose: 60 mg Metoprolol Succinate (Toprol Xl) 25 mg PO DAILY [facility] Stop: 11/27/17 09:46 Last Admin: 05/31/17 09:27 Dose: 25 mg Morphine Sulfate (Morphine Sulfate) 4 mg IVP Q2H PRN PRN Reason: Severe Pain Stop: 11/27/17 13:21 Last Admin: 05/30/17 06:35 Dose: 4 mg Morphine Sulfate (Morphine Sulfate) 6 mg IVP Q2H PRN PRN Reason: Chest Pain Stop: 11/29/17 08:35 Last Admin: 05/30/17 19:49 Dose: 6 mg Nitroglycerin (Nitroglycerin) 0.4 mg SL Q5MIN PRN PRN Reason: Chest Pain Stop: 11/26/17 21:07 Last Admin: 05/27/17 22:17 Dose: 0.4 mg Omeprazole (Prilosec) 20 mg PO 0630 [facility] Stop: 11/27/17 06:31 Last Admin: 05/31/17 09:26 Dose: 20 mg Ondansetron HCl (Zofran) 4 mg IVP Q6HR PRN; Protocol PRN Reason: Nausea And Vomiting Stop: 11/29/17 01:19 Last Admin: 05/30/17 01:27 Dose: 4 mg Valsartan (Diovan) 160 mg PO DAILY [facility] Stop: 11/28/17 09:01 Last Admin: 05/31/17 09:27 Dose: 160 mg Transfer Discharge Sum: Data Procedures and tests throughout hospitalization: Pending Orders 05/28/17 06:30 Omeprazole [PriLOSEC] 20 mg PO 0630 05/28/17 09:00 Aspirin Enteric Coated [Aspirin EC] 81 mg PO DAILY Atorvastatin [Lipitor] 40 mg PO DAILY Isosorbide MONOnitrate (24 HR) [Imdur] 60 mg PO DAILY 05/28/17 09:39 Cardiac Cath Site Preparation Routine Oxygen via nasal cannula Nasal Cannula 2 lpm CL Cardiac Catheterization [CL] Routine 05/28/17 09:41 CK Isoenzymes Routine 05/28/17 09:45 Metoprolol XL (24 HR) Succ [Toprol XL] 25 mg PO DAILY 05/28/17 13:21 Bed rest w/bathroom privileges [RC] .ONCE Advance Diet as Tolerated Routine 05/28/17 13:30 Nitroglycerin [Nitroglycerin Premix 25 MG/250 ML] 25 mg in 250 ml IVC 10 mcg/ min 05/28/17 14:20 Assess for bleeding [RC] .PER UNIT PROTOCOL Communication order [RC] .PRN Communication order [RC] CONT Notify provider [RC] .PRN Heparin 2,000 unit IVP Q6H PRN Heparin 4,000 unit IVP Q6HR PRN 05/28/17 14:30 Heparin 25,000 UNIT/500 ML D5W 25,000 unit in 500 ml IVC 12 unit/kg/hr 05/28/17 18:41 EPIV Insertion [RC] .ONCE IV Invasive line management [RC] q4h May use line for blood draws [RC] .PRN Signed consent on chart [RC] .ONCE Surgical preparation, skin ant [RC] .ONCE 05/28/17 Dinner Cardiac Diet 05/29/17 09:00 Diltiazem CD (24hr) [Cardizem CD] 120 mg PO DAILY Valsartan [Diovan] 160 mg PO DAILY 05/29/17 11:30 PTT Inhibitor Assay,Reflex Routine 05/30/17 01:18 Ondansetron [Zofran] 4 mg IVP Q6HR PRN 05/30/17 06:25 Morphine [Morphine Sulfate] 4 mg IVP Q2H PRN 05/30/17 07:51 Consult to Cardiac Rehabilitation-Phase1 [CONS] Routine 05/30/17 08:34 Morphine [Morphine Sulfate] 6 mg IVP Q2H PRN 05/31/17 10:00 PTT [Activated Partial Thrombo Time] [COAG] Routine - Impressions ITS Impressions Echocardiogram 05/28/17 09:00 Impressions: Mild-moderate LV systolic dysfunction, LVEF 40%. There are regional wall motion abnormalities, see diagram below. Mild concentric left ventricular hypertrophy. Mild left ventricular diastolic dysfunction. Normal right ventricular size and function. Moderately dilated left atrium. Trileaflet aortic valve with moderately calcified leaflets. Moderate aortic stenosis. Mild-moderate aortic regurgitation. Moderate calcification of the mitral valve annulus and subvalvular apparatus. No mitral stenosis. Mild-moderate mitral regurgitation. No evidence of pulmonary hypertension. Left Ventricular Wall Motion: Rest Echo Findings The mid inferior septal and mid anterior septal bain were hypokinetic. The apex, apical inferior, basal inferior, apical anterior, apical septal and apical lateral bain were akinetic. All other wall segments showed normal motion. Findings: Study Quality * Technically adequate exam. ECG Findings * Normal sinus rhythm. Left Ventricle * Mild-moderate LV systolic dysfunction, LVEF 40%. There are regional wall motion abnormalities, see diagram below. * Normal LV chamber size. * Mild concentric left ventricular hypertrophy. * Mild left ventricular diastolic dysfunction. Right Ventricle * Normal right ventricular size and function. Left Atrium * Moderately dilated left atrium. Right Atrium * Normal right atrial size. Aorta * Normally sized aortic root. Pericardium * There is no pericardial effusion present. IVC * The IVC is not dilated. Aortic Valve * Trileaflet aortic valve with moderately calcified leaflets. * Moderate aortic stenosis. * Mild-moderate aortic regurgitation. Mitral Valve * Moderate calcification of the mitral valve annulus and subvalvular apparatus. * No mitral stenosis. * Mild-moderate mitral regurgitation. Tricuspid Valve * Normal tricuspid valve structure. * No tricuspid stenosis. * Trace tricuspid regurgitation. * No evidence of pulmonary hypertension. Pulmonic Valve * Pulmonic valve not well visualized. * No pulmonic stenosis. * Trace pulmonic regurgitation. Echocardiogram Limited Views 05/30/17 10:08 Impressions: LVEF 40%. LV systolic dysfunction with regional variations - similar in appearance to echo 05/28/2017. Normal right ventricular size and function. Left Ventricular Wall Motion: Rest Echo Findings The apical inferior, mid inferior septal, mid anterior septal and mid inferior lateral bain were hypokinetic. The apex, apical anterior, apical septal and apical lateral bain were akinetic. All other wall segments showed normal motion. Findings: Study Quality * Technically adequate exam. ECG Findings * Artifact noted on rhythm recording. Possibly sinus rhythm. Left Ventricle * LVEF 40%. * Normal LV size. * Mild increase in LV wall thickness. Aorta * Normally sized aortic root. IVC * The IVC is dilated. Right Ventricle * Normal right ventricular structure and function. Transfer Discharge Sum: Prov Date of admission: 05/28/17 01:33 Primary care physician: Tanna Jeff Consults: 05/30/17 07:51 Consult to Cardiac Rehabilitation-Phase1 [CONS] Routine Comment: Reason for Consult: NSTEMI Call Completed: No Discharging clinician: Linda Holland Transfer Discharge Sum: A/P - Plan Functional capacity at transfer: uses cane/walker Overall status at transfer: patient is not back to baseline Disposition: Transfer Critical Access Hosp Transfer Discharge Sum: Hosp Hospital course: 86-year-old female with history of previous [place], TIA, HTN presented to the ED by EMS complaining of chest pain. She has had a LHC in 05/2016 at [facility] showing disease in LAD, LCx, RCA with failed PCI, and patient did medical management. Troponin was elevated at 0.31 to 2.9 initially, EKG showed new RBBB and [address] elevation in I/aVL. She was started on a heparin drip. Admitted to ICU. A TTE showed new HFrEF with EF 40% with regional wall motion abnormalities, moderate , mild-moderate AR, mild-moderate MR. She had left heart cath on 05/28/17 which showed severe triple-vessel disease and all her coronaries are heavily calcified. Attempt to open with PTCA was unsuccessful. Patient and family were discussed possible options. These include medical therapy, Rotablator, and open heart surgery. The patient and her family are against open heart surgery, and she is a poor candidate for this given her age and multiple co-morbidities.. Rotablator would need to be done in [place] and would also be at increased risk. Discussed consideration of rotational atherectomy, however severe proximal tortuosity and heavy thrombus burden, very high risk of perforation and no reflow if were able to cross lesion with device. It was noted that a better option would be orbital atherectomy across heavily calcified lesion, same risks but slightly lower. That device (CSI) is not available in our facility. Initially declined transfer pt and joey Xiong, recommend continued medical tx. She did have ntg infusion for pain relief which has since been discontinued. - Time Spent with Patient Total time spent providing and/or coordinating transfer services: Transfer Discharge Sum: Exam - Constitutional Vitals: Vital Signs Temp Pulse Resp BP Pulse Ox 05/31/17 10:36 92 25 92/67 94 05/31/17 09:00 92 20 105/67 92 05/31/17 08:00 93 20 96/77 92 05/31/17 07:00 98.2 F 93 16 91/64 92 05/31/17 06:00 90 18 78/63 90 05/31/17 05:00 88 20 84/56 93 05/31/17 04:00 88 22 85/60 93 05/31/17 03:00 90 21 85/58 95 05/31/17 00:40 98 F 05/31/17 00:00 85 23 70/46 90 05/30/17 23:00 85 21 71/37 92 05/30/17 22:00 84 24 81/56 92 05/30/17 21:00 81 18 73/50 94 05/30/17 20:12 98.6 F 05/30/17 20:00 80 18 76/48 93 05/30/17 19:00 80 16 80/52 93 05/30/17 18:00 78 16 81/50 95 05/30/17 17:00 79 16 81/53 95 05/30/17 16:00 80 14 82/54 95 05/30/17 15:38 84 05/30/17 15:30 98.9 F 05/30/17 15:00 83 16 85/58 96 05/30/17 14:00 85 16 85/57 94 05/30/17 13:00 83 14 95/60 95 05/30/17 12:15 98.2 F 82 14 93/60 92 05/30/17 11:47 87 05/30/17 11:00 92 20 96/63 95 Intake and Output 05/30/17 05/31/17 05/31/17 23:59 07:59 15:59 Intake Total 312 / 312 1050 / 1050 800 / 800 Output Total 125 / 125 Balance 187 / 187 1050 / 1050 800 / 800 Intake: IV Fluids 312 / 312 1050 / 1050 800 / 800 0.9 % Sodium Chloride 1,000 ML 1000 / 1000 800 / 800 @ 100 mls/hr IVC .Q10H NANCY Rx#: [id number] Heparin 25,000 UNIT/500 ML D5W 312 / 312 50 / 50 25,000 unit In 500 ml @ 12 UNIT /KG/HR 16.329 mls/hr IVC .Q24H NANCY Rx#:[id number] Oral 0 / 0 0 / 0 Output: Urine 125 / 125 Other: Weight 78.6 kg Patient Weight 05/31/17 23:59 Weight 78.6 kg General appearance: average body habitus - Head Head exam: Present: atraumatic - Eye Eye exam: Present: sclera anicteric. Absent: conjunctival injection Pupils: Present: normal accommodation, PERRL. Absent: irregular - Respiratory Respiratory exam: Present: CTAB. Absent: accessory muscle use - Cardiovascular Cardiovascular exam: Present: RRR. Absent: bradycardia, clicks, diastolic murmur, irregular rhythm - Extremities Exam Extremities exam: Present: normal capillary refill, normal inspection. Absent: calf tenderness, pedal edema
--- NOTE | 2017-05-31 10:56 | Discharge Summary ---
Date of Encounter: 05/31/17 Time of Encounter: 10:50 - Discharge Diagnosis (1) STEMI (ST elevation myocardial infarction) Priority: Primary Status: Acute Qualifiers: Involved coronary artery: LAD coronary artery Qualified Code(s): I21.02 - ST elevation (STEMI) myocardial infarction involving left anterior descending coronary artery (2) CAD (coronary artery disease) Priority: Secondary Status: Chronic Qualifiers: Coronary Disease-Associated Artery/Lesion type: platinum artery [place] vs. transplanted heart: platinum heart Associated angina: with unstable angina Qualified Code(s): I25.110 - Atherosclerotic heart disease of platinum coronary artery with unstable angina pectoris (3) Hyperlipemia Priority: Secondary Status: Chronic Qualifiers: Hyperlipidemia type: unspecified Qualified Code(s): E78.5 - Hyperlipidemia , unspecified (4) Hypertension Priority: Secondary Status: Chronic Qualifiers: Hypertension type: essential hypertension Qualified Code(s): I10 - Essential (primary) hypertension - Discharge Medications Home Medications: Atorvastatin [Lipitor] 40 mg PO DAILY 10/08/15 [History] Aspirin Enteric Coated [Aspirin EC] 81 mg PO DAILY tablet. 05/31/17 [Rx] Diltiazem CD (24hr) [Cardizem CD] 120 mg PO DAILY cap.er.24h 05/31/17 [Rx] Heparin 2,000 unit IVP Q6H PRN vial 05/31/17 [Rx] Heparin 4,000 unit IVP Q6HR PRN vial 05/31/17 [Rx] Isosorbide MONOnitrate (24 HR) [Imdur] 60 mg PO DAILY tab.er.24h 05/31/17 [Rx] Metoprolol XL (24 HR) Succ [Toprol Xl] 25 mg PO DAILY tab.er.24h 05/31/17 [Rx] Morphine [Morphine Sulfate] 4 mg IVP Q2H PRN syringe 05/31/17 [Rx] Morphine [Morphine Sulfate] 6 mg IVP Q2H PRN syringe 05/31/17 [Rx] Nitroglycerin 0.4 mg SL Q5MIN PRN tab.subl 05/31/17 [Rx] Omeprazole [PriLOSEC] 20 mg PO 0630 capsule. 05/31/17 [Rx] Ondansetron [Zofran] 4 mg IVP Q6HR PRN vial 10/24/17 [Rx] Valsartan [Diovan] 160 mg PO DAILY tablet 05/31/17 [Rx] Allergies/Adverse Reactions: 3 Allergy/AdvReac Type Severity Reaction Status Date / Time acetaminophen [From Percocet] AdvReac Nausea Verified 09/16/16 15:18 Oxycodone [From Percocet] AdvReac Nausea Verified 09/16/16 15:18 Procedures/tests Complete & Pending: Procedures Performed prior 72 hours Category Date Time Status ECG 12 lead ECG [ECG] Routine Y 05/30/17 04:59 Completed EV limited echocardiogram Routine Y 05/30/17 10:08 Completed Date of admission: 05/28/17 01:33 Primary care physician: Tanna Jeff Consults: 05/30/17 07:51 Consult to Cardiac Rehabilitation-Phase1 [CONS] Routine Comment: Reason for Consult: NSTEMI Call Completed: No - Patient Status Disposition: Transfer Critical Access Hosp Condition: Undetermined Functional capacity at discharge: wheelchair bound Overall status at discharge: patient is not back to baseline - Discharge Instructions Instructions: Myocardial Infarction (DC) Follow Up With: Reji Mccray DO [Primary Care Provider] - - Diet and Activity Activity: as per physical therapy Diet: low fat, low cholesterol, low salt diet Hospital course: 86-year-old female with history of previous [place], TIA, HTN presented to the ED by EMS complaining of chest pain. She has had a LHC in 05/2016 at [facility] showing disease in LAD, LCx, RCA with failed PCI, and patient did medical management. Troponin was elevated at 0.31 to 2.9 initially, EKG showed new RBBB and [address] elevation in I/aVL. She was started on a heparin drip. Admitted to ICU. A TTE showed new HFrEF with EF 40% with regional wall motion abnormalities, moderate , mild-moderate AR, mild-moderate MR. She had left heart cath on 05/28/17 which showed severe triple-vessel disease and all her coronaries are heavily calcified. Attempt to open with PTCA was unsuccessful. Patient and family were discussed possible options. These include medical therapy, Rotablator, and open heart surgery. The patient and her family are against open heart surgery, and she is a poor candidate for this given her age and multiple co-morbidities.. Rotablator would need to be done in [place] and would also be at increased risk. Discussed consideration of rotational atherectomy, however severe proximal tortuosity and heavy thrombus burden, very high risk of perforation and no reflow if were able to cross lesion with device. It was noted that a better option would be orbital atherectomy across heavily calcified lesion, same risks but slightly lower. That device (CSI) is not available in our facility. Initially declined transfer pt and joey Xiong, recommend continued medical tx. She did have ntg infusion for pain relief which has since been discontinued. - Time Spent with Patient Total time spent providing and/or coordinating discharge services: - Constitutional Vitals: Temp Pulse Resp BP Pulse Ox 98.2 F 92 25 92/67 94 05/31/17 07:00 05/31/17 10:36 05/31/17 10:36 05/31/17 10:36 05/31/17 10:36 General appearance: Present: A&O X 3 Exam: General appearance: Present: A&O X 3 - Head Head exam: Present: atraumatic, normocephalic - Eye Eye exam: Present: PERRL, conjuntiva pink, sclera anicteric Pupils: Present: PERRL - Neck Neck exam general surgery: Present: supple, trachea midline. Absent: lymphadenopathy - Respiratory Respiratory exam: Present: Coarse rales in both lung bases. Absent: accessory muscle use, rhonchi, wheezes - Cardiovascular Cardiovascular exam: Present: RRR, +S1, +S2, systolic murmur (Loud systolic and diastolic murmurs heard into the aortic area and to the left axilla 2 out of 6) . Absent: diastolic murmur, gallop, rubs - GI/Abdominal GI/Abdominal exam: Present: normal bowel sounds, soft, no peritoneal signs. Absent: distended, tenderness - Extremities Exam Extremities exam: Present: warm, radial pulses palpable and symmetrical. Absent : calf tenderness, cyanotic, pedal edema - Neurological Exam Neurological exam: Present: CN II-XII intact, oriented X3, no focal deficits. Absent: pronater drift, facial droop, speech deficit Additional comments: Kyphosis - Skin Skin exam: Present: dry, intact
[2017-05-31] MEDS: Heparin 25,000 UNIT/500 ML D5W 25,000 UNIT/500 ML MLS IVC SCH (12:46)
[2017-05-31 13:43] VITALS: BP 93/64
[2017-06-01 18:06] LABS: CK-BB (CK isoenzymes) 0 % (0-0); CK-MB (CK isoenzymes) 5 % (0-4); CK-MM (CK-isoenzymes) 95 % (96-100)
[2017-06-02 08:36] LABS: CK Total (Ck Isoenzymes) 129 U/L (20-180)
== END 2017-05-31 14:27 | disposition short-term general hospital (02) | DRG 251 ==
LOC: 3BNU 19:43 → EMEROO 19:43 → 3BNU 23:17 → SUATTDRO 05-28 01:33 → 2NNU 05-28 12:03 → ICNU 05-28 13:10
PROVIDERS: ADMIT Hospitalist; ATTEND Student in an Organized Health Care Education/Training Program

== ENCOUNTER 2017-08-15 17:55 | Inpatient (IN) ==
--- NOTE | 2017-08-15 18:48 | Emergency Department Note ---
Disposition Clinical Impression: ESTELLA (acute kidney injury), Elevated troponin Dyspnea Qualifiers: Dyspnea type: shortness of breath Qualified Code(s): R06.02 - Shortness of breath Disposition: Admitted As Inpatient Condition: Good Referrals: Reji Mccray DO [Primary Care Provider] - Forms: ED Satisfaction Letter SOB HPI - General Chief Complaint: ED Shortness of Breath/Dyspnea Stated Complaint: hypotension, SOB Time Seen by Provider: 08/15/17 18:26 Source: patient, family Mode of arrival: private vehicle Limitations: no limitations Nursing Notes Reviewed: Yes Vital Signs Reviewed: Yes - History of Present Illness 86-year-old female history of coronary artery disease status post stent placement in May, hypertension, hyperlipidemia, atrial fibrillation currently on amiodarone as well as aspirin Plavix and Coumadin who presents to the ER due to hypotension and shortness of breath. Patient states around 1:00 today she felt lightheaded and short of breath. They checked her blood pressure there and was roughly 60/40. Patient's daughter spoke with the nurse at the cardiology clinic who spoke with cardiology and recommended the patient here for evaluation and stopper amiodarone. Family reports there is a discussion about potentially getting a pacemaker placed. They report she had testing performed on Tuesday which showed an ejection fraction of 20-25 percent. Patient states she had some pain across her shoulders which is consistent with her usual chest pain with heart issues. She is currently chest pain-free. No other complaints. Pt Subjective Complaint: shortness of breath Onset (ago): hour(s) Severity: moderate Consistency/Duration: now resolved Improves with: nothing Worsens with: nothing Known history of: other (CAD) Associated symptoms: Denies: chest pain, fever, cough, nausea/vomiting Treatment prior to arrival: none Cough present: No Sputum production: No Sputum Amount: None - Related Data Home oxygen amount: none Home Medications Medication Instructions Recorded Confirmed Atorvastatin [Lipitor] 40 mg PO DAILY 10/08/15 07/18/17 Furosemide [Lasix] 20 mg PO BID 07/18/17 07/18/17 Warfarin [Coumadin] 1 mg PO 1800 07/18/17 07/18/17 Previous Rx's Medication Instructions Recorded Aspirin Enteric Coated [Aspirin EC] 81 mg PO DAILY tablet. 05/31/17 Diltiazem CD (24hr) [Cardizem CD] 120 mg PO DAILY cap.er.24h 10/24/17 Isosorbide MONOnitrate (24 HR) 60 mg PO DAILY tab.er.24h 05/31/17 [Imdur] Metoprolol XL (24 HR) Succ [Toprol 25 mg PO DAILY tab.er.24h 05/31/17 Xl] Nitroglycerin 0.4 mg SL Q5MIN PRN tab.subl 05/31/17 Omeprazole [PriLOSEC] 20 mg PO 0630 capsule. 05/31/17 Allergies Allergy/AdvReac Type Severity Reaction Status Date / Time acetaminophen [From Percocet] AdvReac Nausea Verified 08/15/17 18:01 Oxycodone [From Percocet] AdvReac Nausea Verified 08/15/17 18:01 All systems ED: reviewed and negative except as stated. Constitutional: Denies: fever Cardiovascular: Denies: chest pain Respiratory: Reports: dyspnea. Denies: cough Gastrointestinal: Denies: abdominal pain, nausea, vomiting Past Medical History - Past Medical History Attestation: Yes The following information was validated with the patient. Source: patient Medical history: Reports: coronary artery disease, dementia, GERD, hyperlipidemia, hypertension, myocardial infarction, TIA, other Surgical history: Reports: angioplasty/stent, hip replacement, hysterectomy, other Psychiatric history: Reports: no psych history - Social History Smoking Status: Never smoker Smokeless Tobacco Status: No Alcohol use: Reports: none Drug use: Reports: none Physical Exam - General Limitations: no limitations General appearance: alert, in no apparent distress - Head Head exam: atraumatic, normocephalic - Eye Eye exam: Present: normal appearance - ENT ENT exam: normal exam - Neck Neck exam: Present: normal inspection, full ROM - Chest Chest inspection: Present: normal inspection, symmetric chest wall rise - Respiratory Respiratory exam: Present: normal lung sounds bilaterally - Cardiovascular Cardiovascular exam: Present: regular rate, normal rhythm, normal heart sounds - Abdominal Exam Abdominal exam: Present: soft, Non-Tender. Absent: tenderness - Extremities Exam Extremities exam: Present: normal inspection, full ROM - Expanded Upper Extremity Exam Shoulder exam: Present: normal inspection, full ROM Arm exam: Present: normal inspection, full ROM Elbow exam: Present: normal inspection, full ROM Forearm/Wrist exam: Present: normal inspection, full ROM Hand exam: Present: normal inspection, full ROM - Expanded Lower Extremity Exam Hip/Pelvis exam: Present: normal inspection, full ROM Upper leg exam: Present: normal inspection, full ROM Knee exam: Present: normal inspection, full ROM Lower leg exam: Present: normal inspection, full ROM Ankle exam: Present: normal inspection, full ROM Foot/toe exam: Present: normal inspection, full ROM - Psychiatric Psychiatric exam: Present: normal affect - Skin Skin exam: Present: warm, dry, intact Course Course Narrative: Patient seen and examined. Vital signs reviewed. We will obtain an EKG, chest x-ray as well as labs including troponin. - Reevaluation(s) Reevaluation #1: I relayed the recommendations of cardiology with the patient and family as well as her labs and imaging. She is agreeable with being admitted to the hospital. - Consultations Consultation #1: I discussed this patient with the on-call fire patrol. Discussed the patient' s history and imaging labs and interventions. They agree with admission to the hospitalist service. They do not recommend heparinized at this time. They will see in consultation for discussion of potential pacemaker as well as medication review for her hypotension. Vital Signs Temperature 98.4 F 08/15/17 17:58 Pulse Rate 59 08/15/17 17:58 Respiratory Rate 18 08/15/17 17:58 Blood Pressure 99/61 08/15/17 17:58 O2 Sat by Pulse Oximetry 97 08/15/17 17:58 Temperature 98.4 F 08/15/17 17:58 Pulse Rate 59 08/15/17 17:58 Respiratory Rate 18 08/15/17 17:58 Blood Pressure 99/61 08/15/17 17:58 O2 Sat by Pulse Oximetry 97 08/15/17 17:58 Oxygen Delivery Oxygen Delivery Room Air Shortness of Breath/Dyspnea - MDM Narrative Medical decision making narrative: 86-year-old female presents to the ER with a chief complaint of shortness of breath and hypotension. History of CAD with stent placed in May. She is currently pain-free. Her EKG demonstrates sinus rhythm unchanged from previous. Chest x-ray unremarkable. She does have a slightly elevated troponin of 0.05 in the setting of acute kidney injury. She does report decreased fluid intake. Given her age and poor ejection fraction we will start gentle IV hydration here. Case discussed with the on-call fire patrol. They will see in consultation. Patient admitted to the hospitalist service for dyspnea, hypotension, elevated troponin and acute kidney injury. - Lab Data Lab results reviewed: Yes I reviewed the patient's lab results. Result diagrams: 08/15/17 18:46 08/15/17 18:46 Lab Results 08/15/17 08/15/17 08/15/17 Range/Units 18:46 18:46 18:46 WBC 7.8 (4.3-11.1) K/mcL RBC 4.13 (3.82-4.97) M/mcL Hgb 12.2 (11.5-15.4) g/dL Hct 37.5 (35.3-44.9) % MCV 90.8 (83.0-100.0) fL MCH 29.5 (28.0-33.3) pg MCHC 32.5 (31.6-35.5) g/dL RDW 14.4 (11.5-14.5) % Plt Count 273 (140-400) K/mcL MPV 10.7 (9.4-12.4) fL Immature Gran % 0.6 (0-4) % Seg Neutrophils % 64.9 % Lymphocytes % 20.9 % Monocytes % 11.5 % Eosinophils % 1.5 % Basophils % 0.6 % Neutrophils # 5.0 (1.6-8.9) K/mcL Lymphocytes # 1.6 (0.6-4.6) K/mcL Monocytes # 0.9 (0.0-1.3) K/mcL Eosinophils # 0.1 (0.0-0.6) K/mcL Basophils # 0.1 (0.0-0.2) K/mcL PT (9.4-12.1) Seconds INR Sodium 134 L (136-145) mEq/L Potassium 4.2 (3.5-5.1) mEq/L Chloride 97 L (98-107) mEq/L Carbon Dioxide 25 (23-29) mEq/L BUN 67 H (8-23) mg/dL Creatinine 2.64 H (0.60-1.20) mg/dL Est GFR ( Amer) 21 L (> 60) Est GFR (Non-Af Amer) 17 L (> 60) BUN/Creatinine Ratio 25 (6-26) Glucose 83 (70-105) mg/dL Calculated Osmolality 297 (280-300) Calcium 8.7 (8.6-10.3) mg/dL Troponin I 0.05 H* (< 0.04) ng/mL B-Natriuretic Peptide (Less than 100) pg/mL 08/15/17 08/15/17 Range/Units 18:46 18:46 WBC (4.3-11.1) K/mcL RBC (3.82-4.97) M/mcL Hgb (11.5-15.4) g/dL Hct (35.3-44.9) % MCV (83.0-100.0) fL MCH (28.0-33.3) pg MCHC (31.6-35.5) g/dL RDW (11.5-14.5) % Plt Count (140-400) K/mcL MPV (9.4-12.4) fL Immature Gran % (0-4) % Seg Neutrophils % % Lymphocytes % % Monocytes % % Eosinophils % % Basophils % % Neutrophils # (1.6-8.9) K/mcL Lymphocytes # (0.6-4.6) K/mcL Monocytes # (0.0-1.3) K/mcL Eosinophils # (0.0-0.6) K/mcL Basophils # (0.0-0.2) K/mcL PT 11.4 (9.4-12.1) Seconds INR 1.1 Sodium (136-145) mEq/L Potassium (3.5-5.1) mEq/L Chloride (98-107) mEq/L Carbon Dioxide (23-29) mEq/L BUN (8-23) mg/dL Creatinine (0.60-1.20) mg/dL Est GFR ( Amer) (> 60) Est GFR (Non-Af Amer) (> 60) BUN/Creatinine Ratio (6-26) Glucose (70-105) mg/dL Calculated Osmolality (280-300) Calcium (8.6-10.3) mg/dL Troponin I (< 0.04) ng/mL B-Natriuretic Peptide 977 H (Less than 100) pg/mL - Radiology Data Radiology results reviewed: Yes I reviewed the patient's radiology results. Chest X-Ray 08/15/17 18:02 IMPRESSION: No acute cardiopulmonary disease is identified. D/ / Ulises To MD / Ulises To MD Interpreting Provider: Ulises To MD - EKG Data EKG attestation: Yes I reviewed and interpreted this EKG. EKG results narrative: EKG demonstrates sinus rhythm with first-degree AV block as well as a right bundle-branch block with PVCs with a rate of 60 bpm. Right axis deviation. Prolonged RI interval of 2:15. Prolonged QRS duration of 165. Nonspecific ST- T wave changes in the inferior and lateral leads. No gross ST elevations or depressions. No acute ischemic findings. S.B.Leonard - Nisha Situation: Demographics, MOA Background: Presenting Complaint, Relevant PMH, Meds, & Allergies Assessment: Vital Signs, Course and respsone to treatment, Exam Concerns, Patient/Family Expectation, Pertinant Lab Results Recommendation: Barrier(s) to disposition, Recommendation based on pending studies, treatments, or consults S.B.ASerina Report Given to: Dr. Mehdi Cameron Repor Time: 19:51
[2017-08-15 18:57] LABS: Basophils # 0.1 K/mcL (0.0-0.2); Basophils % 0.6 %; Eosinophils # 0.1 K/mcL (0.0-0.6); Eosinophils % 1.5 %; Hematocrit 37.5 % (35.3-44.9); Hemoglobin 12.2 g/dL (11.5-15.4); Immature Granulocytes % 0.6 % (0-4); Lymphocytes # 1.6 K/mcL (0.6-4.6); Lymphocytes % 20.9 %; Mean Corpuscular HGB Conc 32.5 g/dL (31.6-35.5); Mean Corpuscular Hemoglobin 29.5 pg (28.0-33.3); Mean Corpuscular Volume 90.8 fL (83.0-100.0); Mean Platelet Volume 10.7 fL (9.4-12.4); Monocytes # 0.9 K/mcL (0.0-1.3); Monocytes % 11.5 %; Platelet Count 273 K/mcL (140-400); Red Blood Count 4.13 M/mcL (3.82-4.97); Red Cell Distribution Width 14.4 % (11.5-14.5); Segmented Neutrophils % 64.9 %
[2017-08-15 19:01] LABS: INR 1.1; Prothrombin Time 11.4 Seconds (9.4-12.1)
[2017-08-15 19:11] LABS: Calcium 8.7 mg/dL (8.6-10.3); Potassium 4.2 mEq/L (3.5-5.1)
[2017-08-15] MEDS ORDERED: 0.9 % Sodium Chloride 1,000 ML IVC SCH (19:45)
--- NOTE | 2017-08-15 20:04 | Emergency Department Note ---
START Narrative - START START: I examined this patient and my medical decision-making was reviewed with the Resident Physician. I agree with the documented findings, disposition and treatment plan as described except to the extent set forth below. 86-year-old female presented to the ER with hypotension. Patient was sent to the ER via the cardiology clinic recommendation. Patient is a history of A. fib and is on amiodarone. [place] any chest pain to me. States she felt lightheaded earlier today and found her blood pressure to be 60/40. We consult with cardiology in the ER. They will see the patient tomorrow. Patient was started on maintenance fluids as she also had some prerenal azotemia. She is chest pain-free. No critical care time.
[2017-08-15] MEDS ORDERED: Acetaminophen 325 MG TABLET PO PRN (21:25)
[2017-08-15] MEDS ORDERED: Naloxone 0.4 MG/ML INJ IVP PRN (21:25)
[2017-08-15] MEDS ORDERED: Ondansetron 4 MG/2 ML VIAL IVP PRN (21:25)
[2017-08-15] MEDS ORDERED: Ipratropium/Albuterol Neb 3 ML IH PRN (21:25)
[2017-08-15] MEDS ORDERED: *HR* Morphine 2 MG/ML SYRINGE IVP PRN (21:25)
[2017-08-15] MEDS ORDERED: *HR* Heparin 5,000 UNIT/ML VIAL IVP ONE (21:25)
[2017-08-15] MEDS ORDERED: *HR* Heparin 5,000 UNIT/ML VIAL IVP PRN ×2 (21:25)
[2017-08-15] MEDS ORDERED: Nitroglycerin 0.4 MG TAB.SUBL SL PRN (21:30)
--- NOTE | 2017-08-15 21:34 | Internal Med History&Physical ---
Date of Encounter: 08/15/17 Time of Encounter: 21:32 Assessment and Plan (1) ESTELLA (acute kidney injury) Current visit: Yes Status: Acute Acute renal failure secondary to hypotension and dehydration, exacerbated by Lasix and hydrochlorothiazide Start gentle hydration due to history of CHF and low ejection fraction, hold Lasix and hydrochlorothiazide Patient used to take Benicar but is not taking it currently Check orthostatics, fall precautions Hold amiodarone for now Omeprazole for GI prophylaxis and Coumadin/heparin for DVT prophylaxis. The patient will be admitted for observation. Full code. Time spent on this admission 40 minutes. High risk of falling (2) Hypotension Current visit: Yes Status: Acute Qualifiers: Hypotension type: orthostatic hypotension Qualified Code(s): I95.1 - Orthostatic hypotension (3) Dehydration Current visit: Yes Status: Acute Due to hypovolemia (4) CAD (coronary artery disease) Current visit: No Status: Chronic Continue aspirin, Plavix, isosorbide Qualifiers: Coronary Disease-Associated Artery/Lesion type: red devil artery [place] vs. transplanted heart: red devil heart Associated angina: with unstable angina Qualified Code(s): I25.110 - Atherosclerotic heart disease of red devil coronary artery with unstable angina pectoris (5) Hyperlipemia Current visit: No Status: Chronic Qualifiers: Hyperlipidemia type: unspecified Qualified Code(s): E78.5 - Hyperlipidemia , unspecified (6) Elevated troponin Current visit: Yes Status: Acute Likely secondary to demand ischemia related to acute renal failure (7) Atrial fibrillation Current visit: Yes Status: Acute Nontherapeutic, INR is 1.1 Has history of TIAs Start heparin drip, resume Coumadin Qualifiers: Atrial fibrillation type: paroxysmal Qualified Code(s): I48.0 - Paroxysmal atrial fibrillation Internal Medicine - H&P: HPI Chief complaint: Shortness of breath and weakness Admitted From: Emergency Dept History of present illness: Ms. Houston is a 86 year old female with a past medical history of three-vessel CAD not a candidate to have open heart surgery or Rotablator, was transferred to [facility] and had a stent placed. The patient came complaining of difficulty breathing and a very low blood pressure 64/45 measured at home. She called her gear room keeper and was instructed to stop amiodarone which was a started at [facility]. Patient has not been drinking enough fluids and has been taking her regular doses of Lasix and hydrochlorothiazide. Her creatinine today is 2.64, the prior measurement was 1.15. Recent ejection fraction was measured being 20-25% and also showing mild diastolic dysfunction. BUN is 67, with a baseline of 17. Sodium is 134 for right 97 BNP 977, blood pressure at the moment after fluids 80s 99/61 but drops to the 70s at times. She become symptomatic every time she stands up, complains of dizziness. Troponin is 0.05 but is not complaining of any chest pain at the moment. She has a life vest. Chest x-ray is unremarkable Past Med Surg Social Fam HX - Past Medical History Medical history: coronary artery disease (Three-vessel coronary artery disease, not candidate for surgery, had a stent placed), dementia, GERD, hyperlipidemia, hypertension, myocardial infarction, TIA, other (Dementia, A. fib on Coumadin and amiodarone) Psychiatric history: no psych history - Past Surgical History Surgical History: angioplasty/stent, hip replacement, hysterectomy, other ( Echocardiogram shows an ejection fraction of 20-25% with mild diastolic dysfunction and valvular disease) - Social History Smoking Status: Never smoker Smokeless Tobacco Status: No Alcohol use: none Drug use: none - Family History Mother Hx Family Cardiac Disorders: Yes Brother Hx Family Cardiac Disorders: Yes - Additional Family History Additional family history: Father with angina and brother with heart disease Internal Medicine - H&P: Meds Atorvastatin [Lipitor] 40 mg PO HS 10/08/15 [History] Aspirin Enteric Coated [Aspirin EC] 81 mg PO DAILY tablet. 05/31/17 [Rx] Isosorbide MONOnitrate (24 HR) [Imdur] 60 mg PO DAILY tab.er.24h 05/31/17 [Rx] Nitroglycerin 0.4 mg SL Q5MIN PRN tab.subl 05/31/17 [Rx] Furosemide [Lasix] 40 mg PO BID 07/18/17 [History] Warfarin [Coumadin] 1 mg PO MOTUFR 07/18/17 [History] Clopidogrel [Plavix] 75 mg PO DAILY 08/15/17 [History] Pantoprazole Sodium 40 mg PO DAILY 08/15/17 [History] Warfarin [Coumadin] 2 mg PO SUWETHSA 08/15/17 [History] hydroCHLOROthiazide [Hydrochlorothiazide] 50 mg PO DAILY 08/15/17 [History] 3 Allergy/AdvReac Type Severity Reaction Status Date / Time acetaminophen [From Percocet] AdvReac Nausea Verified 08/15/17 18:01 Oxycodone [From Percocet] AdvReac Nausea Verified 08/15/17 18:01 All Systems PM: A 10-system review of systems was performed and is negative for pertinent findings except as documented above in the HPI. Review of systems: Weakness, other systems out of the 10 reviewed were negative - Constitutional Vitals: Temp Pulse Resp BP Pulse Ox 98.4 F 80 20 86/68 99 08/15/17 17:58 08/15/17 21:00 08/15/17 21:00 08/15/17 21:00 08/15/17 21:00 General appearance: Present: A&O X 3 Exam: Severe kyphosis - Head Head exam: Present: atraumatic, normocephalic - Eye Eye exam: Present: PERRL, conjuntiva pink, sclera anicteric Pupils: Present: PERRL - Neck Neck exam general surgery: Present: supple, trachea midline. Absent: lymphadenopathy - Respiratory Respiratory exam: Present: CTAB. Absent: accessory muscle use, rales, rhonchi, wheezes - Cardiovascular Cardiovascular exam: Present: RRR, +S1, +S2. Absent: diastolic murmur, gallop, rubs, systolic murmur Additional comments: Distant heart sounds - GI/Abdominal GI/Abdominal exam: Present: diminished bowel sounds, normal bowel sounds, soft, no peritoneal signs. Absent: distended, tenderness - Extremities Exam Extremities exam: Present: warm, radial pulses palpable and symmetrical. Absent : calf tenderness, cyanotic, pedal edema - Neurological Exam Neurological exam: Present: CN II-XII intact, oriented X3, no focal deficits. Absent: pronater drift, facial droop, speech deficit - Skin Skin exam: Present: dry, intact Internal Med - H&P Results - Labs CBC & Chem 7: 08/15/17 18:46 08/15/17 18:46
[2017-08-15 21:41] LABS: Activated Partial Thrombo Time 27.1 Seconds (26.0-36.0)
[2017-08-15] MEDS: Heparin 25,000 UNIT/500 ML D5W 25,000 UNIT/500 ML BAG IVC SCH (23:18)
[2017-08-16 06:00] LABS: Hematocrit 33.1 % (35.3-44.9); Mean Corpuscular HGB Conc 33.2 g/dL (31.6-35.5); Mean Corpuscular Hemoglobin 29.6 pg (28.0-33.3); Mean Platelet Volume 11.4 fL (9.4-12.4); Platelet Count 199 K/mcL (140-400); Red Blood Count 3.72 M/mcL (3.82-4.97); Red Cell Distribution Width 14.5 % (11.5-14.5)
[2017-08-16] MEDS: 0.9 % Sodium Chloride 1,000 ML IVC SCH ×2 (06:02→17:14)
[2017-08-16 06:17] LABS: Calcium 8.1 mg/dL (8.6-10.3); Potassium 4.5 mEq/L (3.5-5.1)
--- NOTE | 2017-08-16 08:35 | Internal Med Progress Note ---
Date of Encounter: 08/16/17 Time of Encounter: 08:33 - Assessment and plan (1) CAD (coronary artery disease) Current Visit: No Status: Chronic Assessment and plan: presented with chest pain, EKG changes and elevated troponin 05/2017 and was found to have STEMI at that time. LCH 05/28/2017 revealed severe three vessel CAD. She was evaluated by Cardiology and CTS who noted high risk PCI and high risk for CABG. Patient was transferred to [facility] where she underwent another C with reported successful PCI. She was discharged home with life vest and outpatient Cardiology follow-up. Now with recurrent chest pain. Initial troponin 0.05 (previously 22). 08/12/2017 TTE with EF 25%, severe LV dysfunction ( previous EF 40%). Currently chest pain free. Cont home ASA, plavix, statin, nitrate, heparin gtt. Cardiology consulted Qualifiers: Coronary Disease-Associated Artery/Lesion type: [place] artery [place] vs. transplanted heart: [place] heart Associated angina: with unstable angina Qualified Code(s): I25.110 - Atherosclerotic heart disease of [place] coronary artery with unstable angina pectoris (2) Acute systolic congestive heart failure Current Visit: Yes Status: Acute Assessment and plan: 08/12/2017 outpatient TTE with EF 25% and severe systiolic function (EF 40% 2016). BNP 977, CXR without overt heart failure. Does not appear fluid overloaded. Holding diuretics with ESTELLA. Cardiology consulted (3) ESTELLA (acute kidney injury) Current Visit: Yes Status: Acute Assessment and plan: Cr 2.6 on admission; baseline normal. Suspect secondary to hypotension and dehydration, exacerbated by Lasix and hydrochlorothiazide. Treated with IV fluids with improvement in Cr. Stop IV fluids at this time with new, low EF. Cont holding diuretics. Monitor repeat renal function (4) Atrial fibrillation Current Visit: Yes Status: Acute Assessment and plan: per hx. Rate controlled. Holding home amiodarone with hypotension. INR sub- therapeutic. Cont heparin gtt,coumadin Qualifiers: Atrial fibrillation type: paroxysmal Qualified Code(s): I48.0 - Paroxysmal atrial fibrillation (5) DVT prophylaxis Current Visit: No Status: Acute Assessment and plan: heparin gtt - Subjective Interval history: Seen and examined at bedside, patient is new to me. Information obtained from chart review and patient report. Patient says she feels better, no further chest pain. No SOB. Says she has not been drinking water like she should be. Grandson at bedside, awaiting Cardiology recommendations - Constitutional Vitals: Temp Pulse Resp BP Pulse Ox 97.3 F L 62 16 103/67 96 08/16/17 07:34 08/16/17 07:34 08/16/17 07:34 08/16/17 07:34 08/16/17 07:34 General appearance: Present: A&O X 3, no acute distress - Head Head exam: Present: atraumatic, normocephalic - Eye Eye exam: Present: PERRL, conjuntiva pink, sclera anicteric Pupils: Present: PERRL - Neck Neck exam general surgery: Present: supple, trachea midline. Absent: lymphadenopathy - Respiratory Respiratory exam: Present: rales. Absent: accessory muscle use, rhonchi, wheezes - Cardiovascular Cardiovascular exam: Present: RRR, +S1, +S2. Absent: diastolic murmur, gallop, rubs, systolic murmur - GI/Abdominal GI/Abdominal exam: Present: normal bowel sounds, soft, no peritoneal signs. Absent: distended, tenderness - Extremities Exam Extremities exam: Present: warm, radial pulses palpable and symmetrical. Absent : calf tenderness, cyanotic, pedal edema - Neurological Exam Neurological exam: Present: CN II-XII intact, oriented X3, no focal deficits. Absent: pronater drift, facial droop, speech deficit - Skin Skin exam: Present: dry, intact Internal Medicine: Result - Labs CBC & Chem 7: 08/16/17 05:37 08/16/17 05:37 Labs: Short CBC 08/16/17 Range/Units 05:37 WBC 6.7 (4.3-11.1) K/mcL Hgb 11.0 L (11.5-15.4) g/dL Hct 33.1 L (35.3-44.9) % Plt Count 199 (140-400) K/mcL BMP 08/16/17 05:37 Sodium 135 L Potassium 4.5 Chloride 103 Carbon Dioxide 23 BUN 60 H Creatinine 2.16 H Glucose 94 Calcium 8.1 L - ABG Interpretation ABG results: PT/INR, D-dimer PT 11.4 Seconds (9.4-12.1) 08/15/17 18:46 Consult Discharge Plan - Plan Referrals: Reji Mccray DO [Primary Care Provider] -
[2017-08-16] MEDS: Aspirin Enteric Coated 81 MG Tablet PO SCH (10:31)
[2017-08-16] MEDS: Isosorbide MONOnitrate (24 HR) 60 MG TAB.ER.24H PO SCH (10:31)
--- NOTE | 2017-08-16 10:37 | Cardiology Consult Note ---
<Rusty Barillas - Last Filed: 08/16/17 11:21> Date of Encounter: 08/16/17 Time of Encounter: 10:35 Assessment and Plan (1) Hypotension Current Visit: Yes Status: Acute Reported b/p 70/40 at home. B/p as low as 86/67 here. Likely secondary to dehydration. Appears dry on exam and ESTELLA noted. Recommend Holding diuretic for now. Restart at lower maintenance dose at 20 mg daily at discharge if able. Your IM care. Qualifiers: Hypotension type: orthostatic hypotension Qualified Code(s): I95.1 - Orthostatic hypotension (2) Systolic CHF, chronic Current Visit: Yes Status: Acute Known chronic ischemic cardiomyopathy. TTE recently repeated and shows no improvement in LV function. TTE 08/12/17: LVEF 20-25%. Severe segmental left ventricular systolic dysfunction. Mildly dilated left ventricle. Mild left ventricular diastolic dysfunction. Normal right ventricular structure and function. Moderately calcified aortic valve leaflets. Low-flow, low-gradient aortic stenosis. Mean gradient 15 mmHg. Peak velocity 2.54 m/s. Valve area 1.1 cm2. Mild mitral regurgitation. No evidence of pulmonary hypertension. Appears dry on exam. Hold diuretic for now d/t ESTELLA. No bb or aceI due to hypotension/ ESTELLA. Consider low dose bb if b/p improves. Out-pt f/u will be scheduled with EP to discuss ICD. (3) CAD (coronary artery disease) Current Visit: No Status: Chronic Known severe disease that was not amendable to PCI. S/p PCI to the RCA. See HPI. [facility] films reviewed with interventionalist. TTE shows LAD territory infarct consistent with prior [place]. Continued medical management recommended. Continue asa, statin, and plavix, imdur. DAPT uninterrupted for minimum one year. Unfortunately, she has not been able to tolerate medical therapy due to hypotension. Qualifiers: Coronary Disease-Associated Artery/Lesion type: [place] artery [place] vs. transplanted heart: [place] heart Associated angina: with unstable angina Qualified Code(s): I25.110 - Atherosclerotic heart disease of [place] coronary artery with unstable angina pectoris (4) ESTELLA (acute kidney injury) Current Visit: Yes Status: Acute Primary team following. Avoid nephrotoxins. Diuretics on hold. (5) Atrial fibrillation Current Visit: Yes Status: Acute H/o afib during [facility] hospital stay. Previously on amiodarone. Amio discontinued due to abnormal PFT. Currently NSR. On coumadin therapy monitored by the coumadin clinic. INR subtherapeutic. Currently on heparin gtt. Goal INR 2.0-3.0. Qualifiers: Atrial fibrillation type: paroxysmal Qualified Code(s): I48.0 - Paroxysmal atrial fibrillation Discussion w patient/family: The assessment and plan as outlined above was discussed with the patient and/or family members who expressed understanding and agreement. All questions were answered. Thank you for involving us in the care of your patient. Please call with any questions. History of Present Illness Consult date: 08/16/16 Requesting physician: Abbey Shirley Consult reason: hypotension, elvated troponin Chief complaint: low blood pressure, chest pain History of present illness: Ms. Houston is an 86-year-old female who presents for low blodd pressure and chest pain. She has a past medical history of STEMI 05/28/17 s/p failed PCI to the LAD and Lcx artery complication. She was recommended for CABG eval and was deemed not a surgical candidate and to consider high risk PCI. Patient initially opted for medical management. D/t no improvement in symptoms and decline in clinical status she agreed to transfer to [facility]. She underwent LHC and received THOMAS to her RCA on 06/07/17. She was found to have a cardiomyoapthy with EF 25-30%. Beta-carlitos was not started due to hypotension and bradycardia seen during her hospital stay. She was started on DAPT with asa and plavix. Life vest was placed at discharge. She was noted to have afib during her stay at [facility] and underwent cardioversion and initiation of amiodarone due to hypotension. Repeat TTE was completed 08/10/16 and showed EF continued to be low at 20-25%. She was being set up with electrophysiology to discuss ICD. When contacted she reported not feeling well and b/p in the 70's systolic. She was recommended to go to the ER. She c/o pain across her shoulder blades and upper chest yesterday that was relieved with placement of home oxygen. On admission she is found to have ESTELLA. Creatinine elevated at 2.64. Her lasix was decreased a few weeks ago due to low blood pressure. She denies SOB, orthopnea, PND, or edema. Previous cardiac testing: TTE 08/12/17: LVEF 20-25%. Severe segmental left ventricular systolic dysfunction. Mildly dilated left ventricle. Mild left ventricular diastolic dysfunction. Normal right ventricular structure and function. Moderately calcified aortic valve leaflets. Low-flow, low-gradient aortic stenosis. Mean gradient 15 mmHg. Peak velocity 2.54 m/s. Valve area 1.1 cm2. Mild mitral regurgitation. No evidence of pulmonary hypertension. TTE completed at [facility] 06/01/17 showed EF 25-30%. There was akenesis of the whole septum, mid to distal anterior wall, mid-distal anterolateral and inferolateral bain, mid and distal inferior wall and apex. Findings consistent with prior LAD infarct. Severely dilated LV. Tri-leaflet aortic valve with moderate to severe low flow aortic stenosis with OLIVE 0.9cm2, SV index 22 ml/m2, MG 12 mmHg, DI 0.34. Mild TR. [facility] 06/07/17: Successful PCI to the 99% stenosed mRCA. [facility] 05/28/17: Emergent C for STEMI. Unsuccessful PTCA to the severely calcified mLAD. There was 60% stenosis in the mCx artery with unsuccessful PTCA and final stenosis 99%. There was 90% stenosis in the proximal RCA and the mRCA. Past Med Surg Social Fam HX - Past Medical History Medical history: atrial fibrillation, cancer, cardiomyopathy, coronary artery disease, GERD, hyperlipidemia, hypertension, myocardial infarction, TIA Psychiatric history: no psych history - Past Surgical History Surgical History: angioplasty/stent, carotid endarterectomy, cholecystectomy, hip replacement, hysterectomy, orthopedic, other - Social History Smoking Status: Never smoker Smokeless Tobacco Status: No Alcohol use: none Drug use: none - Family History Mother Hx Family Cardiac Disorders: Yes Brother Hx Family Cardiac Disorders: Yes Father Hx Family Cardiac Disorders: Yes (angina) Medications and Allergies Atorvastatin [Lipitor] 40 mg PO HS 10/08/15 [History] Aspirin Enteric Coated [Aspirin EC] 81 mg PO DAILY tablet. 05/31/17 [Rx] Isosorbide MONOnitrate (24 HR) [Imdur] 60 mg PO DAILY tab.er.24h 05/31/17 [Rx] Nitroglycerin 0.4 mg SL Q5MIN PRN tab.subl 05/31/17 [Rx] Furosemide [Lasix] 40 mg PO BID 07/18/17 [History] Warfarin [Coumadin] 1 mg PO MOTUFR 07/18/17 [History] Clopidogrel [Plavix] 75 mg PO DAILY 08/15/17 [History] Pantoprazole Sodium 40 mg PO DAILY 08/15/17 [History] Warfarin [Coumadin] 2 mg PO SUWETHSA 08/15/17 [History] hydroCHLOROthiazide [Hydrochlorothiazide] 50 mg PO DAILY 08/15/17 [History] 3 Allergy/AdvReac Type Severity Reaction Status Date / Time acetaminophen [From Percocet] AdvReac Nausea Verified 08/15/17 18:01 Oxycodone [From Percocet] AdvReac Nausea Verified 08/15/17 18:01 All Systems Review: A 10-system review of systems was performed and is negative for pertinent findings except as documented above in the HPI. Physical Examination Vital Signs, Last 4 Hours Temp Pulse Resp BP Pulse Ox 08/16/17 07:34 97.3 F L 62 16 103/67 96 General: Conversant, No Apparent Distress HEENT: Atraumatic, Normocephaly, Mucus Membranes Moist Neck: No JVD, Normal carotid pulses Cardiac: Reg Rate and Rhythm, Normal S1 and S2, Other (2/6 murmur) Lungs: Normal Breath Sounds, No Wheeze, Rales, Rhonchi Neuro: Alert and responsive, No focal deficits noted Abdomen: Soft, Non-Tender Skin: No rashes noted on visualized skin Musculoskeletal: No Chest Wall Tenderness Extremities: No Clubbing, No Cyanosis, No Edema, Normal Pulses Results 08/16/17 05:37 08/16/17 05:37 Lab Results 08/16/17 08/16/17 08/16/17 05:37 05:37 05:37 WBC 6.7 Hgb 11.0 L Hct 33.1 L Plt Count 199 APTT 63.6 H D Sodium 135 L Potassium 4.5 Chloride 103 Carbon Dioxide 23 BUN 60 H Creatinine 2.16 H Glucose 94 Calcium 8.1 L - Imaging and Cardiology Echo: report reviewed Cardiac cath: report reviewed - EKG Interpretation EKG results cardiology: personally reviewed Consult Discharge Plan - Plan Referrals: Reji Mccray DO [Primary Care Provider] - <Angel Bauer - Last Filed: 08/16/17 14:54> Date of Encounter: 08/16/17 - Attending Attestation I have personally performed a face to face evaluation on this patient. I have reviewed and agree with the care plan. History and Exam by me shows: 86 YOF with ischemic CM EF 25% on recent ECHO on lif vest now. Pt high risk for CABG and LAD territory likely infarcted Attempt at PCI of the LAD not succesful on previous [place] Hold Lasix due to hypovolemia Dietary consult Continue medical management Possible ICD Patient denies any SOB or Chest pain Risks outweigh benefit currently with high risk PCI Patient agrees and has chosen medical management Assessment and Plan Discussion w patient/family: The assessment and plan as outlined above was discussed with the patient and/or family members who expressed understanding and agreement. All questions were answered. Thank you for involving us in the care of your patient. Please call with any questions. History of Present Illness History of present illness: Ms. Houston is a 86 year old female All Systems Review: A 10-system review of systems was performed and is negative for pertinent findings except as documented above in the HPI. Physical Examination Vital Signs, Last 4 Hours Temp Pulse Resp BP Pulse Ox 08/16/17 11:31 97.3 F L 53 16 99/66 96 Results 08/16/17 05:37 08/16/17 05:37 Lab Results 08/16/17 08/16/17 08/16/17 05:37 05:37 05:37 WBC 6.7 Hgb 11.0 L Hct 33.1 L Plt Count 199 APTT 63.6 H D Sodium 135 L Potassium 4.5 Chloride 103 Carbon Dioxide 23 BUN 60 H Creatinine 2.16 H Glucose 94 Calcium 8.1 L 08/16/17 11:54 WBC Hgb Hct Plt Count APTT 66.5 H Sodium Potassium Chloride Carbon Dioxide BUN Creatinine Glucose Calcium
[2017-08-16] MEDS ORDERED: *HR* Warfarin 1 MG TABLET PO ONE (18:00)
[2017-08-16] MEDS ORDERED: Warfarin perPT PO PRN (18:00)
--- NOTE | 2017-08-16 20:13 | Electrocardiograph Report ---
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
[2017-08-16] MEDS: Heparin 25,000 UNIT/500 ML D5W 25,000 UNIT/500 ML BAG IVC SCH (21:52)
[2017-08-17 05:52] LABS: INR 1.2; Prothrombin Time 12.9 Seconds (9.4-12.1)
[2017-08-17 06:09] LABS: Calcium 8.5 mg/dL (8.6-10.3); Potassium 3.4 mEq/L (3.5-5.1)
[2017-08-17] MEDS: Heparin 25,000 UNIT/500 ML D5W 25,000 UNIT/500 ML BAG IVC SCH (08:42)
[2017-08-17] MEDS: Isosorbide MONOnitrate (24 HR) 60 MG TAB.ER.24H PO SCH (09:02)
[2017-08-17] MEDS: Aspirin Enteric Coated 81 MG Tablet PO SCH (09:02)
--- NOTE | 2017-08-17 13:57 | Internal Med Progress Note ---
Date of Encounter: 08/17/17 Time of Encounter: 13:51 - Assessment and plan (1) CAD (coronary artery disease) Current Visit: No Status: Chronic Assessment and plan: presented with chest pain, EKG changes and elevated troponin 05/2017 and was found to have STEMI at that time. [facility] 05/28/2017 revealed severe three vessel CAD. She was evaluated by Cardiology and CTS who noted high risk PCI and high risk for CABG. Patient was transferred to [facility] where she underwent another C with reported successful PCI. She was discharged home with life vest and outpatient Cardiology follow-up. Now with recurrent chest pain. Initial troponin 0.05 (previously 22). 08/12/2017 TTE with EF 25%, severe LV dysfunction ( previous EF 40%). Evaluated by cardiology who recommended continuing medical management as risk outweigh benefit of a high risk PCI. Currently chest pain free. Continue asa, statin, and plavix. DAPT uninterrupted for minimum one year. Has outpatient cardiology follow-up 08/19/17. Qualifiers: Coronary Disease-Associated Artery/Lesion type: [place] artery [place] vs. transplanted heart: [place] heart Associated angina: with unstable angina Qualified Code(s): I25.110 - Atherosclerotic heart disease of [place] coronary artery with unstable angina pectoris (2) Acute systolic congestive heart failure Current Visit: Yes Status: Acute Assessment and plan: 08/12/2017 outpatient TTE with EF 25% and severe systiolic function (EF 40% 2016). BNP 977, CXR without overt heart failure. Does not appear fluid overloaded. Holding diuretic for now with AK I. Evaluated by cardiology who recommended resuming Lasix at lower dose. Hold Riley due to hypotension/AK I and will consider low dose BB if BP improves. (3) ESTELLA (acute kidney injury) Current Visit: Yes Status: Acute Assessment and plan: Cr 2.6 on admission; baseline normal. Suspect secondary to hypotension and dehydration, exacerbated by Lasix and hydrochlorothiazide. Treated with IV fluids with improvement in Cr. Stop IV fluids at this time with new, low EF. Cont holding diuretics. Monitor repeat renal function. Cr 1.4 on 08/17 (4) Atrial fibrillation Current Visit: Yes Status: Acute Assessment and plan: per hx. Rate controlled. Previously on amiodarone however this was stopped due to abnormal PFTs. INR sub-therapeutic. Cont heparin gtt,coumadin Qualifiers: Atrial fibrillation type: paroxysmal Qualified Code(s): I48.0 - Paroxysmal atrial fibrillation (5) DVT prophylaxis Current Visit: No Status: Acute Assessment and plan: heparin gtt - Subjective Interval history: Seen and examined at bedside; patient says she feels better and would like to go home if possible. I discussed with her the need to stay overnight for continue monitoring of BP and renal function. Stress with cardiology as well who agrees patient to stay overnight. No chest pain no shortness of breath. Patient is agreeable for 1 more night. - Constitutional Vitals: Temp Pulse Resp BP Pulse Ox 97.8 F 68 17 110/68 97 08/17/17 11:48 08/17/17 11:48 08/17/17 11:48 08/17/17 11:48 08/17/17 11:48 General appearance: Present: A&O X 3, no acute distress - Head Head exam: Present: atraumatic, normocephalic - Eye Eye exam: Present: PERRL, conjuntiva pink, sclera anicteric Pupils: Present: PERRL - Neck Neck exam general surgery: Present: supple, trachea midline. Absent: lymphadenopathy - Respiratory Respiratory exam: Present: CTAB. Absent: accessory muscle use, rales, rhonchi, wheezes - Cardiovascular Cardiovascular exam: Present: RRR, +S1, +S2. Absent: diastolic murmur, gallop, rubs, systolic murmur - GI/Abdominal GI/Abdominal exam: Present: normal bowel sounds, soft, no peritoneal signs. Absent: distended, tenderness - Extremities Exam Extremities exam: Present: warm, radial pulses palpable and symmetrical. Absent : calf tenderness, cyanotic, pedal edema - Neurological Exam Neurological exam: Present: CN II-XII intact, oriented X3, no focal deficits. Absent: pronater drift, facial droop, speech deficit - Skin Skin exam: Present: dry, intact Internal Medicine: Result - Labs CBC & Chem 7: 08/16/17 05:37 08/17/17 05:36 Labs: BMP 08/17/17 05:36 Sodium 138 Potassium 3.4 L Chloride 106 Carbon Dioxide 27 BUN 45 H Creatinine 1.48 H Glucose 99 Calcium 8.5 L - ABG Interpretation ABG results: PT/INR, D-dimer PT 12.9 Seconds (9.4-12.1) H 08/17/17 05:36 Consult Discharge Plan - Plan Referrals: Reji Mccray DO [Primary Care Provider] - 08/22/17 1:30 pm
--- NOTE | 2017-08-17 13:58 | Cardiology Progress Note ---
Date of Encounter: 08/17/17 Time of Encounter: 13:54 Assessment and Plan (1) Hypotension Current Visit: Yes Status: Acute Reported b/p 70/40 at home. B/p as low as 86/67 here. Likely secondary to dehydration. Appears dry on exam and ESTELLA noted initially. Recommend Holding diuretic. Symptoms improving. B/p improving. Restart at lower maintenance dose at 40 mg daily at discharge if able. Your IM care. Discussed recommendations with primary team. Cardiology signing off. Qualifiers: Qualified Code(s): I95.1 - Orthostatic hypotension (2) Systolic CHF, chronic Current Visit: Yes Status: Acute Known chronic ischemic cardiomyopathy. TTE recently repeated and shows no improvement in LV function. TTE 08/12/17: LVEF 20-25%. Severe segmental left ventricular systolic dysfunction. Mildly dilated left ventricle. Mild left ventricular diastolic dysfunction. Normal right ventricular structure and function. Moderately calcified aortic valve leaflets. Low-flow, low-gradient aortic stenosis. Mean gradient 15 mmHg. Peak velocity 2.54 m/s. Valve area 1.1 cm2. Mild mitral regurgitation. No evidence of pulmonary hypertension. Appears dry on exam. Hold diuretic for now d/t ESTELLA. Restart at lower dose at discharge. No bb or aceI due to hypotension/ ESTELLA. Consider low dose bb if b/p improves. Out-pt f/u scheduled with EP to discuss ICD 08/19/17. (3) CAD (coronary artery disease) Current Visit: No Status: Chronic Known severe disease that was not amendable to PCI. S/p PCI to the RCA 05/2017. [facility] films reviewed with interventionalist. TTE shows LAD territory infarct consistent with prior [place]. Continued medical management recommended. Risk outweigh benefit of a high risk PCI. Continue asa, statin, and plavix. DAPT uninterrupted for minimum one year. Previous cardiac testing: Previous cardiac testing: TTE 08/12/17: LVEF 20-25%. Severe segmental left ventricular systolic dysfunction. Mildly dilated left ventricle. Mild left ventricular diastolic dysfunction. Normal right ventricular structure and function. Moderately calcified aortic valve leaflets. Low-flow, low-gradient aortic stenosis. Mean gradient 15 mmHg. Peak velocity 2.54 m/s. Valve area 1.1 cm2. Mild mitral regurgitation. No evidence of pulmonary hypertension. TTE completed at [facility] 06/01/17 showed EF 25-30%. There was akenesis of the whole septum, mid to distal anterior wall, mid-distal anterolateral and inferolateral bain, mid and distal inferior wall and apex. Findings consistent with prior LAD infarct. Severely dilated LV. Tri-leaflet aortic valve with moderate to severe low flow aortic stenosis with OLIVE 0.9cm2, SV index 22 ml/m2, MG 12 mmHg, DI 0.34. Mild TR. [facility] 06/07/17: Successful PCI to the 99% stenosed mRCA. [facility] 05/28/17: Emergent C for STEMI. Unsuccessful PTCA to the severely calcified mLAD. There was 60% stenosis in the mCx artery with unsuccessful PTCA and final stenosis 99%. There was 90% stenosis in the proximal RCA and the mRCA. Qualifiers: Qualified Code(s): I25.110 - Atherosclerotic heart disease of [place] coronary artery with unstable angina pectoris (4) ESTELLA (acute kidney injury) Current Visit: Yes Status: Acute Primary team following. Avoid nephrotoxins. Diuretics on hold. (5) Atrial fibrillation Current Visit: Yes Status: Acute H/o afib during [facility] hospital stay s/p cardioversion. Previously on amiodarone. Beta-carlitos not started due to hypotension. Amio discontinued due to abnormal PFT. Currently NSR per EKG. Recommend continuos telemetry during stay. On coumadin therapy monitored by the coumadin clinic. INR subtherapeutic. Currently on heparin gtt. Goal INR 2.0-3.0. Qualifiers: Qualified Code(s): I48.0 - Paroxysmal atrial fibrillation Discussion w patient/family: The assessment and plan as outlined above was discussed with the patient and/or family members who expressed understanding and agreement. All questions were answered. Thank you for involving us in the care of your patient. Please call with any questions. Subjective Principal diagnosis: ESTELLA, hypotension Interval history: Ms. Houston has no complaints. Denies chest pain or SOB. Objective Vital Signs, Last 4 Hours Temp Pulse Resp BP Pulse Ox 08/17/17 11:48 97.8 F 68 17 110/68 97 General: Conversant, No Apparent Distress HEENT: Atraumatic, Normocephaly, Mucus Membranes Moist Neck: No JVD, Normal carotid pulses Cardiac: Reg Rate and Rhythm, Normal S1 and S2, No Murmur Lungs: Normal Breath Sounds, No Wheeze, Rales, Rhonchi Neuro: Alert and responsive, No focal deficits noted Abdomen: Soft, Non-Tender Skin: No rashes noted on visualized skin Musculoskeletal: No Chest Wall Tenderness Extremities: No Clubbing, No Cyanosis, No Edema, Normal Pulses Results 08/16/17 05:37 08/17/17 05:36 Lab Results 08/17/17 08/17/17 08/17/17 05:36 05:36 05:36 INR 1.2 APTT 66.0 H Sodium 138 Potassium 3.4 L Chloride 106 Carbon Dioxide 27 BUN 45 H Creatinine 1.48 H Glucose 99 Calcium 8.5 L - EKG Interpretation EKG results cardiology: personally reviewed Consult Discharge Plan - Plan Referrals: Reji Mccary DO [Primary Care Provider] - 08/22/17 1:30 pm
[2017-08-17] MEDS ORDERED: *HR* Warfarin 2 MG TABLET PO ONE (18:00)
[2017-08-18 05:39] LABS: INR 1.2; Prothrombin Time 12.6 Seconds (9.4-12.1)
[2017-08-18 05:53] LABS: BUN/Creatinine Ratio 40 (6-26); Blood Urea Nitrogen 36 mg/dL (8-23); Calcium 8.6 mg/dL (8.6-10.3); Carbon Dioxide 25 mEq/L (23-29); Chloride 109 mEq/L (98-107); Glucose 96 mg/dL (70-105); Osmolality,Calculated 296 (280-300); Potassium 3.7 mEq/L (3.5-5.1); Sodium 139 mEq/L (136-145); eGFR For African Americans > 60 (> 60); eGFR For Non-African Americans 60 (> 60)
[2017-08-18] MEDS: Isosorbide MONOnitrate (24 HR) 60 MG TAB.ER.24H PO SCH (09:18)
[2017-08-18] MEDS: Aspirin Enteric Coated 81 MG Tablet PO SCH (09:18)
[2017-08-18 11:11] VITALS: BP 121/72
--- NOTE | 2017-08-18 13:35 | Discharge Summary ---
Date of Encounter: 08/18/17 Time of Encounter: 09:00 - Discharge Diagnosis (1) CAD (coronary artery disease) Priority: Primary Status: Chronic Comments: presented with chest pain, EKG changes and elevated troponin 05/2017 and was found to have STEMI at that time. [facility] 05/28/2017 revealed severe three vessel CAD. She was evaluated by Cardiology and CTS who noted high risk PCI and high risk for CABG. Patient was transferred to [facility] where she underwent another C with reported successful PCI. She was discharged home with life vest and outpatient Cardiology follow-up. Now with recurrent chest pain. Initial troponin 0.05 (previously 22). 08/12/2017 TTE with EF 25%, severe LV dysfunction. Evaluated by cardiology who recommended continuing medical management as risk outweigh benefit of a high risk PCI. Currently chest pain free. Continue asa, statin, and plavix. DAPT uninterrupted for minimum one year. Life vest in place. Has outpatient cardiology follow-up 08/19/17 to discuss ICD Qualifiers: Coronary Disease-Associated Artery/Lesion type: [place] artery [place] vs. transplanted heart: [place] heart Associated angina: with unstable angina Qualified Code(s): I25.110 - Atherosclerotic heart disease of [place] coronary artery with unstable angina pectoris (2) Acute systolic congestive heart failure Priority: Secondary Status: Chronic Comments: 08/12/2017 outpatient TTE with EF 25% and severe systiolic function. BNP 977, CXR without overt heart failure. Does not appear fluid overloaded. Home lasix initially held with ESTELLA. Resume home Lasix at half dose per cardiology recommendation. Holding HCTZ. No MADELAINE with recent ESTELLA and soft/borderline BP. Hold on initiating BB as well with low BP. Defer further medication management to cardiology. Has follow-up 08/19/17 (3) ESTELLA (acute kidney injury) Priority: Primary Status: Resolved Comments: Cr 2.6 on admission; baseline normal. Suspect secondary to hypotension and dehydration, exacerbated by Lasix and hydrochlorothiazide. Treated with IV fluids with improvement in Cr. Stop IV fluids at this time with new, low EF. Cont holding diuretics. Monitor repeat renal function. Cr 1.4 on 08/17 (4) Atrial fibrillation Priority: Secondary Status: Chronic Comments: per hx. Rate controlled. Previously on amiodarone however it was stopped due to abnormal PFTs. [id number] score 5 (age, female, CHF, CAD). Discussed with cardiology who recommends Lovenox or heparin bridge with Coumadin. Discussed with patient and she is taken Lovenox in the past and feels comfortable going home with subcutaneous injections. Discharge home on 3 mg Coumadin, Lovenox bridge. INR follow-up 08/19/17. Qualifiers: Atrial fibrillation type: paroxysmal Qualified Code(s): I48.0 - Paroxysmal atrial fibrillation - Discharge Medications Prescriptions: Furosemide [Lasix] 20 mg PO BID #60 tablet Warfarin [Coumadin] 3 mg PO 1800 #30 tablet Home Medications: Atorvastatin [Lipitor] 40 mg PO HS 10/08/15 [History] Aspirin Enteric Coated [Aspirin EC] 81 mg PO DAILY tablet.dr 05/31/17 [Rx] Isosorbide MONOnitrate (24 HR) [Imdur] 60 mg PO DAILY tab.er.24h 05/31/17 [Rx] Nitroglycerin 0.4 mg SL Q5MIN PRN tab.subl 05/31/17 [Rx] Clopidogrel [Plavix] 75 mg PO DAILY 08/15/17 [History] Pantoprazole Sodium 40 mg PO DAILY 08/15/17 [History] Furosemide [Lasix] 20 mg PO BID #60 tablet 08/18/17 [Rx] Warfarin [Coumadin] 3 mg PO 1800 #30 tablet 08/18/17 [Rx] Allergies/Adverse Reactions: 3 Allergy/AdvReac Type Severity Reaction Status Date / Time acetaminophen [From Percocet] AdvReac Nausea Verified 08/15/17 18:01 Oxycodone [From Percocet] AdvReac Nausea Verified 08/15/17 18:01 Date of admission: 08/16/17 16:27 Primary care physician: Tanna Jeff Discharging clinician: Abbey Shirley Anticipated date of discharge: 08/18/17 - Patient Status Disposition: Home, Self-Care Condition: Good Functional capacity at discharge: uses cane/walker Overall status at discharge: patient is back to baseline - Discharge Instructions Instructions: Coronary Artery Disease in Women (DC), Enoxaparin (Injection), Warfarin (By mouth) Follow Up With: Coumadin,clinic [Other] - 08/19/17 9:30 am Reji Mccray DO [Primary Care Provider] - 08/22/17 1:30 pm - Diet and Activity Activity: increase activity as tolerated Diet: advance to your usual diet Interval History: Seen and examined at bedside. Patient says she feels significantly improved only to discharge him today. Discussed case with cardiology and doing Coumadin with heparin or Lovenox is recommended due to high Chads Vasc score. Patient has taken Lovenox in the past and feels comfortable home with subcutaneous injections. Patient states her daughter will be staying with her and can give her the injections. She is aware to have INR drawn tomorrow and has cardiology follow-up scheduled for tomorrow as well. No chest pain or shortness of breath at time of discharge Hospital course: See assessment and plan for hospital course - Time Spent with Patient Total time spent providing and/or coordinating discharge services: Greater than 30 minutes (58 minutes spent on discharge) - Constitutional Vitals: Temp Pulse Resp BP Pulse Ox 98.1 F 67 16 121/72 96 08/18/17 11:10 08/18/17 11:10 08/18/17 11:10 08/18/17 11:10 08/18/17 11:10 General appearance: Present: A&O X 3, no acute distress - Head Head exam: Present: atraumatic, normocephalic - Eye Eye exam: Present: PERRL, conjuntiva pink, sclera anicteric Pupils: Present: PERRL - Neck Neck exam general surgery: Present: supple, trachea midline. Absent: lymphadenopathy - Respiratory Respiratory exam: Present: CTAB. Absent: accessory muscle use, rales, rhonchi, wheezes - Cardiovascular Cardiovascular exam: Present: RRR, +S1, +S2. Absent: diastolic murmur, gallop, rubs, systolic murmur - GI/Abdominal GI/Abdominal exam: Present: normal bowel sounds, soft, no peritoneal signs. Absent: distended, tenderness - Extremities Exam Extremities exam: Present: warm, radial pulses palpable and symmetrical. Absent : calf tenderness, cyanotic, pedal edema - Neurological Exam Neurological exam: Present: CN II-XII intact, oriented X3, no focal deficits. Absent: pronater drift, facial droop, speech deficit - Skin Skin exam: Present: dry, intact
[2017-08-18] MEDS ORDERED: *HR* Warfarin 3 MG TABLET PO ONE (18:00)
== END 2017-08-18 14:30 | disposition home or self-care (01) | DRG 682 ==
LOC: 3BNU 17:55 → EMEROO 17:55 → 3BNU 21:56
PROVIDERS: ADMIT Internal Medicine; ATTEND Registered Nurse

== ENCOUNTER 2018-03-14 10:32 | Inpatient (IN) ==
[2018-03-14] MEDS ORDERED: 0.9 % Sodium Chloride 1,000 ML IVC ONE (11:08)
[2018-03-14 11:16] LABS: Basophils # 0.1 K/mcL (0.0-0.2); Basophils % 0.3 %; Eosinophils # 0.1 K/mcL (0.0-0.6); Eosinophils % 0.5 %; Hematocrit 33.5 % (35.3-44.9); Hemoglobin 11.1 g/dL (11.5-15.4); Immature Granulocytes % 1.9 % (0-4); Lymphocytes # 2.6 K/mcL (0.6-4.6); Lymphocytes % 12.9 %; Mean Corpuscular HGB Conc 33.1 g/dL (31.6-35.5); Mean Corpuscular Hemoglobin 30.6 pg (28.0-33.3); Mean Corpuscular Volume 92.3 fL (83.0-100.0); Mean Platelet Volume 10.7 fL (9.4-12.4); Monocytes # 1.5 K/mcL (0.0-1.3); Monocytes % 7.4 %; Neutrophils # 15.4 K/mcL (1.6-8.9); Platelet Count 254 K/mcL (140-400); Red Blood Count 3.63 M/mcL (3.82-4.97); Red Cell Distribution Width 15.1 % (11.5-14.5)
[2018-03-14 11:20] LABS: INR 2.1
[2018-03-14 11:23] LABS: Activated Partial Thrombo Time 31.8 Seconds (26.0-36.0)
[2018-03-14 11:36] LABS: Albumin 3.8 g/dL (3.5-5.7); Albumin/Globulin Ratio 1.6 (1.1-2.2); Bilirubin,Total 0.4 mg/dL (0.3-1.0); Calcium 9.1 mg/dL (8.6-10.3); Globulin 2.4 g/dL (2.4-3.5); Potassium 4.4 mEq/L (3.5-5.1); Total Protein 6.2 g/dL (6.4-8.9)
[2018-03-14 11:49] LABS: Troponin I 0.05 ng/mL (< 0.04)
[2018-03-14 12:29] LABS: Bilirubin,Urine Negative (Negative); Blood,Urine Negative (Negative); Clarity,Urine Clear (Clear); Color,Urine Yellow (Yellow); Glucose,Urine (UA) Normal (Normal); Ketones,Urine Negative (Negative); Leukocyte Esterase,Urine Moderate (Negative); Nitrite,Urine Negative (Negative); Protein,Urine Negative (Neg-Trace); Specific Gravity,Urine 1.013 (1.010-1.025); Urobilinogen,Urine Normal (Normal)
[2018-03-14 12:33] LABS: Bacteria,Urine None Seen per hpf (None-Few); Hyaline Casts,Urine None Seen per lpf (None-Few); RBC,Urine 0-3 per hpf (0-3); Squamous Epithelial Cell,Urine Moderate per lpf (None-Few)
--- NOTE | 2018-03-14 13:24 | Emergency Department Note ---
Disposition Clinical Impression: Elevated troponin, Acute electrocardiogram changes, Diverticulitis GI bleeding Qualifiers: GI bleed type/associated pathology: unspecified gastrointestinal hemorrhage type Qualified Code(s): K92.2 - Gastrointestinal hemorrhage, unspecified Disposition: Admitted As Inpatient Condition: Fair Referrals: Reji Mccray DO [Primary Care Provider] - Forms: ED Satisfaction Letter GI Bleed HPI - General Chief complaint: ED GI Bleed Stated complaint: abd pain, dark tarry stools, weakness Time Seen by Provider: 03/14/18 11:05 Source: patient, family Limitations: no limitations Nursing Notes Reviewed: Yes Vital Signs Reviewed: Yes - History of Present Illness HPI Narrative: Patient is brought in by joey for further evaluation of generalized weakness. 2 days patient has had lower abdominal pain and complaints of dark stool that began at 3:00 this morning. She has had GI bleeding in the past and is concerned about this. Joey is also concerned as she has been more fatigued than usual not wanting to get up and around. Patient was recently recently diagnosed with a rash. Unknown diagnosis. Was placed on steroids. The initial rash has resolved the patient's weakness and symptoms did start shortly after initiation of steroids. - Related Data Home Medications Medication Instructions Recorded Confirmed Aspirin [Lo-Dose Aspirin EC] 81 mg PO DAILY 03/14/18 03/14/18 Atorvastatin [Lipitor] 40 mg PO HS 03/14/18 03/14/18 Clopidogrel [Plavix] 75 mg PO DAILY 03/14/18 03/14/18 Diltiazem CD (24hr) [Cardizem CD] 240 mg PO DAILY 03/14/18 03/14/18 Furosemide [Lasix] 40 mg PO BID 03/14/18 03/14/18 Isosorbide MONOnitrate (24 HR) 60 mg PO DAILY 03/14/18 03/14/18 [Imdur] Nitroglycerin [Nitrostat] 0.4 mg SL Q5M PRN 03/14/18 03/14/18 Olmesartan Medoxomil [Benicar] 40 mg PO DAILY 03/14/18 03/14/18 Pantoprazole Sodium [Protonix] 40 mg PO DAILY 03/14/18 03/14/18 Warfarin [Coumadin] 4 mg PO SUTUTHSA 03/14/18 03/14/18 Warfarin [Coumadin] 5 mg PO MOWEFR 03/14/18 03/14/18 hydroCHLOROthiazide 50 mg PO DAILY 03/14/18 03/14/18 [Hydrochlorothiazide] Allergies Allergy/AdvReac Type Severity Reaction Status Date / Time acetaminophen [From Percocet] AdvReac Nausea Verified 03/08/18 11:44 Oxycodone [From Percocet] AdvReac Nausea Verified 03/08/18 11:44 Review of Systems: CONSTITUTIONAL: Chills with generalized weakness and fatigue No fever HEENT: Eyes: No visual changes SKIN: No rash or itching. CARDIOVASCULAR: No chest pain, chest pressure or chest discomfort. No palpitations or edema. RESPIRATORY: No shortness of breath, cough or sputum. GASTROINTESTINAL: Abdominal cramping with associated dark tarry stools. GENITOURINARY: No burning on urination or hematuria. NEUROLOGICAL: Generalized weakness No headache, dizziness, syncope, paralysis, ataxia, numbness or tingling in the extremities. No change in bowel or bladder control. MUSCULOSKELETAL: No muscle pain, back pain, joint pain or stiffness. Past Medical History - Past Medical History Medical history: Reports: non-contributory Surgical history: Reports: angioplasty/stent, hip replacement, hysterectomy, other Psychiatric history: Reports: no psych history - Social History Smoking Status: Never smoker Smokeless Tobacco Status: No Alcohol use: Reports: none Drug use: Reports: none Physical Exam General: Well appearing, nontoxic, no acute distress Head: Normocephalic Atraumatic Eyes: PERRL, EOMI ENT: Airway patent, no stridor Neck: supple, no meningismus Chest: Lungs clear to auscultation bilateral Cardiac: Regular rate and rhythm, no murmurs, rubs or gallops Abdomen: soft, nontender, nondistended; no guarding, rebound tenderness Skin: No rash, normal skin tone Neuro: Awake alert and appropriate on exam. Pleasant and conversational. No obvious focal deficit. Course - Reevaluation(s) Reevaluation #1: Patient reevaluated. Stool guaiac was positive. No obvious source of bleeding on rectal exam. CT scan concerning for diverticulitis. Patient was placed on antibiotics and admitted for further evaluation of weakness elevated troponin as well as EKG changes and GI bleeding. - Consultations Consultation #1: Discussed with hospitalist. Patient accepted for admission. Vital Signs Temperature 98.0 F 03/14/18 10:35 Pulse Rate 62 03/14/18 10:35 Respiratory Rate 18 03/14/18 10:35 Blood Pressure 88/56 03/14/18 10:35 O2 Sat by Pulse Oximetry 96 03/14/18 10:35 Temperature 98.2 F 03/14/18 15:47 Pulse Rate 62 03/14/18 15:47 Respiratory Rate 16 03/14/18 15:47 Blood Pressure 103/61 03/14/18 15:47 O2 Sat by Pulse Oximetry 94 03/14/18 15:47 Oxygen Delivery Oxygen Delivery Room Air GI Bleed - Medical Records Medical records reviewed: Yes I reviewed the patient's medical records. - Lab Data Lab results reviewed: Yes I reviewed the patient's lab results. Result diagrams: 03/14/18 11:06 03/14/18 11:06 Lab Results 03/14/18 03/14/18 03/14/18 Range/Units 10:47 11:06 11:06 WBC 19.9 H (4.3-11.1) K/mcL RBC 3.63 L (3.82-4.97) M/mcL Hgb 11.1 L (11.5-15.4) g/dL Hct 33.5 L (35.3-44.9) % MCV 92.3 (83.0-100.0) fL MCH 30.6 (28.0-33.3) pg MCHC 33.1 (31.6-35.5) g/dL RDW 15.1 H (11.5-14.5) % Plt Count 254 (140-400) K/mcL MPV 10.7 (9.4-12.4) fL Immature Gran % 1.9 (0-4) % Seg Neutrophils % 77.0 % Lymphocytes % 12.9 % Monocytes % 7.4 % Eosinophils % 0.5 % Basophils % 0.3 % Neutrophils # 15.4 H (1.6-8.9) K/mcL Lymphocytes # 2.6 (0.6-4.6) K/mcL Monocytes # 1.5 H (0.0-1.3) K/mcL Eosinophils # 0.1 (0.0-0.6) K/mcL Basophils # 0.1 (0.0-0.2) K/mcL PT 24.0 H (9.4-12.1) Seconds INR 2.1 APTT 31.8 (26.0-36.0) Seconds Sodium (136-145) mEq/L Potassium (3.5-5.1) mEq/L Chloride (98-107) mEq/L Carbon Dioxide (23-29) mEq/L BUN (8-23) mg/dL Creatinine (0.60-1.20) mg/dL Est GFR ( Amer) (> 60) Est GFR (Non-Af Amer) (> 60) BUN/Creatinine Ratio (6-26) Glucose (70-105) mg/dL Calculated Osmolality (280-300) Lactic Acid (0.5-2.2) mmol/L Calcium (8.6-10.3) mg/dL Total Bilirubin (0.3-1.0) mg/dL AST (13-39) Units/L ALT (7-52) Units/L Alkaline Phosphatase (34-104) Units/L Troponin I (< 0.04) ng/mL Serum Total Protein (6.4-8.9) g/dL Albumin (3.5-5.7) g/dL Globulin (2.4-3.5) g/dL Albumin/Globulin Ratio (1.1-2.2) Urine Color Yellow (Yellow) Urine Clarity Clear (Clear) Urine pH 7.0 (5.0-8.0) pH Units Ur Specific [place] 1.013 (1.010-1.025) Urine Protein Negative (Neg-Trace) mg/dL Urine Glucose (UA) Normal (Normal) mg/dL Urine Ketones Negative (Negative) mg/dL Urine Blood Negative (Negative) Urine Nitrite Negative (Negative) Urine Bilirubin Negative (Negative) Urine Urobilinogen Normal (Normal) mg/dL Ur Leukocyte Esterase Moderate H (Negative) Urine Microscopic RBC 0-3 (0-3) per hpf Urine Microscopic WBC 5-15 H (0-3) per hpf Ur Squamous Epith Cells Moderate H (None-Few) per lpf Urine Bacteria None Seen (None-Few) per hpf Hyaline Casts None Seen (None-Few) per lpf Ur Culture Indicated? YES A (NO) Stool Occult Bld Scrn (Negative) Blood Type Antibody Screen 03/14/18 03/14/18 03/14/18 Range/Units 11:06 11:06 11:06 WBC (4.3-11.1) K/mcL RBC (3.82-4.97) M/mcL Hgb (11.5-15.4) g/dL Hct (35.3-44.9) % MCV (83.0-100.0) fL MCH (28.0-33.3) pg MCHC (31.6-35.5) g/dL RDW (11.5-14.5) % Plt Count (140-400) K/mcL MPV (9.4-12.4) fL Immature Gran % (0-4) % Seg Neutrophils % % Lymphocytes % % Monocytes % % Eosinophils % % Basophils % % Neutrophils # (1.6-8.9) K/mcL Lymphocytes # (0.6-4.6) K/mcL Monocytes # (0.0-1.3) K/mcL Eosinophils # (0.0-0.6) K/mcL Basophils # (0.0-0.2) K/mcL PT (9.4-12.1) Seconds INR APTT (26.0-36.0) Seconds Sodium 141 (136-145) mEq/L Potassium 4.4 (3.5-5.1) mEq/L Chloride 104 (98-107) mEq/L Carbon Dioxide 31 H (23-29) mEq/L BUN 79 H (8-23) mg/dL Creatinine 1.54 H (0.60-1.20) mg/dL Est GFR ( Amer) 39 L (> 60) Est GFR (Non-Af Amer) 32 L (> 60) BUN/Creatinine Ratio 51 H (6-26) Glucose 115 H (70-105) mg/dL Calculated Osmolality 317 H (280-300) Lactic Acid 1.2 (0.5-2.2) mmol/L Calcium 9.1 (8.6-10.3) mg/dL Total Bilirubin 0.4 (0.3-1.0) mg/dL AST 12 L (13-39) Units/L ALT 16 (7-52) Units/L Alkaline Phosphatase 64 (34-104) Units/L Troponin I 0.05 H* (< 0.04) ng/mL Serum Total Protein 6.2 L (6.4-8.9) g/dL Albumin 3.8 (3.5-5.7) g/dL Globulin 2.4 (2.4-3.5) g/dL Albumin/Globulin Ratio 1.6 (1.1-2.2) Urine Color (Yellow) Urine Clarity (Clear) Urine pH (5.0-8.0) pH Units Ur Specific [place] (1.010-1.025) Urine Protein (Neg-Trace) mg/dL Urine Glucose (UA) (Normal) mg/dL Urine Ketones (Negative) mg/dL Urine Blood (Negative) Urine Nitrite (Negative) Urine Bilirubin (Negative) Urine Urobilinogen (Normal) mg/dL Ur Leukocyte Esterase (Negative) Urine Microscopic RBC (0-3) per hpf Urine Microscopic WBC (0-3) per hpf Ur Squamous Epith Cells (None-Few) per lpf Urine Bacteria (None-Few) per hpf Hyaline Casts (None-Few) per lpf Ur Culture Indicated? (NO) Stool Occult Bld Scrn (Negative) Blood Type A POSITIVE Antibody Screen NEGATIVE 03/14/18 Range/Units 12:24 WBC (4.3-11.1) K/mcL RBC (3.82-4.97) M/mcL Hgb (11.5-15.4) g/dL Hct (35.3-44.9) % MCV (83.0-100.0) fL MCH (28.0-33.3) pg MCHC (31.6-35.5) g/dL RDW (11.5-14.5) % Plt Count (140-400) K/mcL MPV (9.4-12.4) fL Immature Gran % (0-4) % Seg Neutrophils % % Lymphocytes % % Monocytes % % Eosinophils % % Basophils % % Neutrophils # (1.6-8.9) K/mcL Lymphocytes # (0.6-4.6) K/mcL Monocytes # (0.0-1.3) K/mcL Eosinophils # (0.0-0.6) K/mcL Basophils # (0.0-0.2) K/mcL PT (9.4-12.1) Seconds INR APTT (26.0-36.0) Seconds Sodium (136-145) mEq/L Potassium (3.5-5.1) mEq/L Chloride (98-107) mEq/L Carbon Dioxide (23-29) mEq/L BUN (8-23) mg/dL Creatinine (0.60-1.20) mg/dL Est GFR ( Amer) (> 60) Est GFR (Non-Af Amer) (> 60) BUN/Creatinine Ratio (6-26) Glucose (70-105) mg/dL Calculated Osmolality (280-300) Lactic Acid (0.5-2.2) mmol/L Calcium (8.6-10.3) mg/dL Total Bilirubin (0.3-1.0) mg/dL AST (13-39) Units/L ALT (7-52) Units/L Alkaline Phosphatase (34-104) Units/L Troponin I (< 0.04) ng/mL Serum Total Protein (6.4-8.9) g/dL Albumin (3.5-5.7) g/dL Globulin (2.4-3.5) g/dL Albumin/Globulin Ratio (1.1-2.2) Urine Color (Yellow) Urine Clarity (Clear) Urine pH (5.0-8.0) pH Units Ur Specific [place] (1.010-1.025) Urine Protein (Neg-Trace) mg/dL Urine Glucose (UA) (Normal) mg/dL Urine Ketones (Negative) mg/dL Urine Blood (Negative) Urine Nitrite (Negative) Urine Bilirubin (Negative) Urine Urobilinogen (Normal) mg/dL Ur Leukocyte Esterase (Negative) Urine Microscopic RBC (0-3) per hpf Urine Microscopic WBC (0-3) per hpf Ur Squamous Epith Cells (None-Few) per lpf Urine Bacteria (None-Few) per hpf Hyaline Casts (None-Few) per lpf Ur Culture Indicated? (NO) Stool Occult Bld Scrn Positive A (Negative) Blood Type Antibody Screen - Radiology Data Radiology results reviewed: Yes I reviewed the patient's radiology results. - EKG Data EKG attestation: Yes I reviewed and interpreted this EKG. EKG results narrative: Atrial and ventricularly paced rhythm with ventricular rate of 59. pr 171. QRS 190. QTC 499. Patient has depressions of the T waves throughout the precordial leads which is consistent with previous EKG of 10/03/17. Patient has newly T-wave inversions in the inferior leads which are changed from the state.
[2018-03-14] MEDS ORDERED: MetroNIDAZOLE 500 MG/100 ML 500 MG/100 ML BAG IVPB ONE (13:56)
[2018-03-14] MEDS ORDERED: Nitroglycerin 0.4 MG TAB.SUBL SL PRN (15:03)
[2018-03-14] MEDS ORDERED: Pantoprazole 40 MG VIAL IVP ONE (15:04)
[2018-03-14] MEDS ORDERED: Naloxone 0.4 MG/ML INJ IVP PRN ×2 (15:12→15:19)
[2018-03-14] MEDS ORDERED: *HR* Phytonadione 10 MG/ML AMPUL SQ ONE (15:16)
[2018-03-14] MEDS ORDERED: *HR* Promethazine 25 MG/ML VIAL IVP PRN (15:19)
[2018-03-14] MEDS ORDERED: Ondansetron 4 MG/2 ML VIAL IVP PRN (15:19)
[2018-03-14] MEDS ORDERED: Acetaminophen 325 MG TABLET PO PRN (15:19)
[2018-03-14] MEDS ORDERED: Pantoprazole 80 MG in 0.9 % Sodium Chloride 50 ML IVPB ONE (15:23)
--- NOTE | 2018-03-14 15:40 | Internal Med History&Physical ---
<Calvin Blakely - Last Filed: 03/14/18 15:40> Date of Encounter: 03/14/18 Time of Encounter: 15:40 Internal Medicine - H&P: HPI Admitted From: Home Plans for Post Hospital Care: Home History of present illness: Ms. Houston is a 87 year old female brought in by grandson for further evaluation of generalized weakness. 2 days patient has had lower abdominal pain and complaints of dark stool that began at 3:00 this morning. She has had GI bleeding in the past and is concerned about this. Grandson is also concerned as she has been more fatigued than usual not wanting to get up and around. Patient was recently recently diagnosed with a rash. Unknown diagnosis. Was placed on steroids. The initial rash has resolved the patient's weakness and symptoms did start shortly after initiation of steroids. At the ED, patient blood pressure was borderline low, stool for occult blood is positive, she also has leukocytosis, CT abdomen showed diffuse diverticulosis with possible only stage diverticulitis at the mid to lower colon. She received 1 dose of Cipro and Flagyl. GI was consulted. Patient will be admitted as inpatient for further evaluation and management. Past Med Surg Social Fam HX - Past Medical History Medical history: non-contributory, arthritis, atrial fibrillation, GERD, GI bleed, hyperlipidemia, hypertension, myocardial infarction, TIA Additional medical history: [place] x2. Psychiatric history: no psych history - Past Surgical History Surgical History: angioplasty/stent, carotid endarterectomy, cholecystectomy, hip replacement, hysterectomy, other, AICD Additional surgical history: shoulder replacement, bilat carotid endarectomy - Social History Smoking Status: Never smoker Smokeless Tobacco Status: No Alcohol use: none Drug use: none - Family History Mother Hx Family Cardiac Disorders: Yes Brother Living Status: Hx Family Cardiac Disorders: Yes Father Living Status: Hx Family Cardiac Disorders: Yes (angina) Internal Medicine - H&P: Meds Aspirin [Lo-Dose Aspirin EC] 81 mg PO DAILY 03/14/18 [History] Atorvastatin [Lipitor] 40 mg PO HS 03/14/18 [History] Clopidogrel [Plavix] 75 mg PO DAILY 03/14/18 [History] Diltiazem CD (24hr) [Cardizem CD] 240 mg PO DAILY 03/14/18 [History] Furosemide [Lasix] 40 mg PO BID 03/14/18 [History] Isosorbide MONOnitrate (24 HR) [Imdur] 60 mg PO DAILY 03/14/18 [History] Nitroglycerin [Nitrostat] 0.4 mg SL Q5M PRN 03/14/18 [History] Olmesartan Medoxomil [Benicar] 40 mg PO DAILY 03/14/18 [History] Pantoprazole Sodium [Protonix] 40 mg PO DAILY 03/14/18 [History] Warfarin [Coumadin] 4 mg PO SUTUTHSA 03/14/18 [History] Warfarin [Coumadin] 5 mg PO MOWEFR 03/14/18 [History] hydroCHLOROthiazide [Hydrochlorothiazide] 50 mg PO DAILY 03/14/18 [History] 3 Allergy/AdvReac Type Severity Reaction Status Date / Time acetaminophen [From Percocet] AdvReac Nausea Verified 03/08/18 11:44 Oxycodone [From Percocet] AdvReac Nausea Verified 03/08/18 11:44 All Systems PM: A 10-system review of systems was performed and is negative for pertinent findings except as documented above in the HPI. Review of systems: REVIEW OF SYSTEMS: CONSTITUTIONAL: No weight loss, fever, chills, weakness or fatigue. HEENT: Eyes: No visual loss, blurred vision, double vision or yellow sclerae. Ears, Nose, Throat: No hearing loss, sneezing, congestion, runny nose or sore throat. SKIN: No rash or itching. CARDIOVASCULAR: No chest pain, chest pressure or chest discomfort. No palpitations or edema. RESPIRATORY: No shortness of breath, cough or sputum. GASTROINTESTINAL: see HPI. GENITOURINARY: No dysuria, urgency, or frequency. NEUROLOGICAL: No headache, dizziness, syncope, paralysis, ataxia, numbness or tingling in the extremities. No change in bowel or bladder control. MUSCULOSKELETAL: No muscle, back pain, joint pain or stiffness. HEMATOLOGIC: No anemia, bleeding or bruising. LYMPHATICS: No enlarged nodes. No history of splenectomy. PSYCHIATRIC: No history of depression or anxiety. ENDOCRINOLOGIC: No reports of sweating, cold or heat intolerance. No polyuria or polydipsia. - Constitutional Vitals: Temp Pulse Resp BP Pulse Ox 98.0 F 59 16 100/54 97 03/14/18 10:35 03/14/18 14:12 03/14/18 14:26 03/14/18 14:26 03/14/18 14:12 General appearance: Present: A&O X 3 Exam: PHYSICAL EXAMINATION: GENERAL APPEARANCE: The patient is alert, oriented and in no acute distress. HEENT: Head is normocephalic. The sinuses are nontender. Pupils are equal and reactive. The nares are patent. Oropharynx clear without lesions. NECK: Supple without lymphadenopathy. HEART: Regular rate and rhythm. LUNGS: No crackles or wheezes are heard. ABDOMEN: Soft, tender to palpation at the right lower quardrant. EXTREMITIES: Without cyanosis, clubbing or edema. NEUROLOGICAL: Gross nonfocal. SKIN: Warm and dry without any rash. Internal Med - H&P Results - Labs CBC & Chem 7: 03/14/18 11:06 03/14/18 11:06 - Assessment and plan (1) GI bleed Current Visit: Yes Status: Acute Assessment and plan: 87-year-old female with past medical history of diverticulosis, atrial fibrillation on Coumadin, CAD on aspirin and Plavix, CKD, and hypertension presented with weakness and black stool. Guaiac positive. CT abdomen possible early stage of diverticulitis. GI consulted. - Possible upper GI bleeding, will give 1 dose bolus PPI, started patient on IV PPI twice a day. - INR 2.1, GI recommended reverse, 10 mg vitamin K subcutaneous and 2 units FFP was ordered. - blood pressure borderline low, she received a bolus normal saline, will continue IV fluid, hold all the blood pressure medicine including Lasix. - Continue cycling H/H, transfuse if Hgb less than 7. - NPO. Possible scopes in the morning. Qualifiers: GI bleed type/associated pathology: unspecified gastrointestinal hemorrhage type Qualified Code(s): K92.2 - Gastrointestinal hemorrhage, unspecified (2) Diverticulitis large intestine Current Visit: Yes Status: Acute Assessment and plan: She received Cipro and Flagyl IV at ED, we will start the patient on Zosyn. Qualifiers: Diverticulitis bleeding: unspecified bleeding status Diverticulitis complication: unspecified complication status Qualified Code(s): K57.32 - Diverticulitis of large intestine without perforation or abscess without bleeding (3) Atrial fibrillation Current Visit: No Status: Chronic Assessment and plan: Cause of GI bleeding and low blood pressure, hold Coumadin and all the blood pressure medicine including Cardizem. Qualifiers: Atrial fibrillation type: paroxysmal Qualified Code(s): I48.0 - Paroxysmal atrial fibrillation (4) CKD (chronic kidney disease) Current Visit: Yes Status: Acute Assessment and plan: at the baseline, continue monitoring. Qualifiers: Chronic kidney disease stage: stage 2 (mild) Qualified Code(s): N18.2 - Chronic kidney disease, stage 2 (mild) (5) Systolic CHF, chronic Current Visit: No Status: Acute Assessment and plan: Patient currently volume depleted, hold Lasix, low blood pressure, hold all the BP medications. (6) CAD (coronary artery disease) Current Visit: No Status: Chronic Assessment and plan: Hold aspirin and Plavix due to GI bleeding. Qualifiers: Coronary Disease-Associated Artery/Lesion type: [place] artery [place] vs. transplanted heart: [place] heart Associated angina: with unstable angina Qualified Code(s): I25.110 - Atherosclerotic heart disease of [place] coronary artery with unstable angina pectoris (7) Hyperlipemia Current Visit: No Status: Chronic Assessment and plan: Continue home medication. Qualifiers: Hyperlipidemia type: unspecified Qualified Code(s): E78.5 - Hyperlipidemia , unspecified (8) Hypertension Current Visit: No Status: Chronic Assessment and plan: Low BP, hold all the blood pressure medicine. Qualifiers: Hypertension type: essential hypertension Qualified Code(s): I10 - Essential (primary) hypertension (9) DVT prophylaxis Current Visit: Yes Status: Acute Assessment and plan: SCDs - Time Spent With Patient Total time spent is greater than 50% in coordination of care (as documented) at patient's floor/unit and/or counseling patient: Greater than 35 minutes <Jimbo Stephneson - Last Filed: 03/14/18 18:58> Date of Encounter: 03/14/18 Internal Medicine - H&P: HPI History of present illness: Ms. Houston is a 87 year old female All Systems PM: A 10-system review of systems was performed and is negative for pertinent findings except as documented above in the HPI. - Constitutional Vitals: Temp Pulse Resp BP Pulse Ox 98.8 F 61 16 104/57 94 03/14/18 18:36 03/14/18 18:36 03/14/18 18:36 03/14/18 18:36 03/14/18 15:47 Internal Med - H&P Results - Labs CBC & Chem 7: 03/14/18 16:15 03/14/18 11:06 Labs: Short CBC 03/14/18 Range/Units 16:15 Hgb 10.2 L (11.5-15.4) g/dL Hct 29.1 L (35.3-44.9) % - Attending Attestation I saw and examined this patient independently, and my medical decision making was reviewed with the [facility] on 2017. I agree with the documented findings, assessment and treatment plan as described in the H&P. - Time Spent With Patient Total time spent is greater than 50% in coordination of care (as documented) at patient's floor/unit and/or counseling patient:
[2018-03-14] MEDS ORDERED: Piperacillin/Tazobactam 3.375 GM in 0.9 % Sodium Chloride Mini Bag 100 ML IVPB SCH (16:00)
--- NOTE | 2018-03-14 16:30 | Event Note ---
Date of Encounter: 03/14/18 Time of Encounter: 16:23 Event note for clarification of consult. Noted patient on [facility] consult list; however consult order is to GI. Reviewed with Dr. Blakely that Dr. Lewis has operated on this patient in 2016 and should first have the opportunity to consult, and if he is unable to see Ms. Houston, [facility] is happy to take consult; however, also noted per Dr. Blakely that patient has early diverticulitis and therefore would be unlikely to have a scope in the acute phase. Noted page to Dr. Lewis for possible consult. Please return call to [facility] if surgical consult is needed.
[2018-03-14 16:35] LABS: Hematocrit 29.1 % (35.3-44.9); Hemoglobin 10.2 g/dL (11.5-15.4)
[2018-03-14] MEDS: 0.9 % Sodium Chloride 1,000 ML IVC SCH (16:46)
[2018-03-14] MEDS: Pantoprazole 40 MG VIAL IVP SCH (17:03)
--- NOTE | 2018-03-14 17:40 | General Surgery Consult Note ---
Date of Encounter: 03/14/18 Time of Encounter: 17:39 Assessment and Plan (1) GI bleed Current Visit: Yes Status: Acute Agree with the current plan for observation following her CBC. Her hemoglobin is 12 but likely with hydration her hemoglobin will likely decrease. Will follow eyes and nose as well. We will likely recommend reversal of her INR to help decrease any episodes of bleeding. I think that her bleeding may be due to the diverticulitis and would not recommend colonoscopy in the setting of diverticulitis. She is not having any upper abdominal pain to suggest gastritis however we will follow with you. Ok for clear liquids. Agree with IV antibiotics. Qualifiers: GI bleed type/associated pathology: melena Qualified Code(s): K92.1 - Melena (2) Diverticulitis Current Visit: Yes Status: Acute The diverticulitis. Agree with IV antibiotics. It is possible that the GI bleed a melanotic stool is related to diverticulitis. Will follow with you. History of Present Illness Consult date: 03/14/18 Reason for consult: other (Dark stools) Requesting physician: Calvin Blakely History of present illness: THe patient is a 87 year old female with a past medical history significant for coronary artery disease, history of MA status post stent placement, hypertension , and gastritis who presented to [facility] who states that she been feeling more weak and fatigued over the past several days. She attributes this to taking prednisone which was prescribed by her physician segment arthritis. She states that 3 AM in the morning she noticed some dark- colored stool. She normally has a bowel movement once a day but states she has not had a bowel movement since this past Tuesday. The stool was dark in color but she denies any nausea or vomiting. She said that she had left-sided lower abdominal pain at the time of the dark-colored stool. Because of the pain symptoms and the dark blood she was brought to the hospital and then subsequent admitted to [facility]. She states that she still having some mild discomfort that the pain has improved. She denies any nausea or vomiting. Past Med Surg Social Fam HX - Past Medical History Medical history: non-contributory Additional medical history: MA x2. Psychiatric history: no psych history - Past Surgical History Surgical History: angioplasty/stent, hip replacement, hysterectomy, other Additional surgical history: shoulder replacement, bilat carotid endarectomy - Social History Smoking Status: Never smoker Smokeless Tobacco Status: No Alcohol use: none Drug use: none - Family History Mother Hx Family Cardiac Disorders: Yes Brother Living Status: Hx Family Cardiac Disorders: Yes Father Living Status: Hx Family Cardiac Disorders: Yes (angina) Medications and Allergies Aspirin [Lo-Dose Aspirin EC] 81 mg PO DAILY 03/14/18 [History] Atorvastatin [Lipitor] 40 mg PO HS 03/14/18 [History] Clopidogrel [Plavix] 75 mg PO DAILY 03/14/18 [History] Diltiazem CD (24hr) [Cardizem CD] 240 mg PO DAILY 03/14/18 [History] Furosemide [Lasix] 40 mg PO BID 03/14/18 [History] Isosorbide MONOnitrate (24 HR) [Imdur] 60 mg PO DAILY 03/14/18 [History] Nitroglycerin [Nitrostat] 0.4 mg SL Q5M PRN 03/14/18 [History] Olmesartan Medoxomil [Benicar] 40 mg PO DAILY 03/14/18 [History] Pantoprazole Sodium [Protonix] 40 mg PO DAILY 03/14/18 [History] Warfarin [Coumadin] 4 mg PO SUTUTHSA 03/14/18 [History] Warfarin [Coumadin] 5 mg PO MOWEFR 03/14/18 [History] hydroCHLOROthiazide [Hydrochlorothiazide] 50 mg PO DAILY 03/14/18 [History] 3 Allergy/AdvReac Type Severity Reaction Status Date / Time acetaminophen [From Percocet] AdvReac Nausea Verified 03/08/18 11:44 Oxycodone [From Percocet] AdvReac Nausea Verified 03/08/18 11:44 Review of Systems All systems PM: reviewed and no additional remarkable complaints except as stated All systems PM: The remainder of the systems were reviewed and are negative General Surgery Exam Initial Vital Signs Temp Pulse Resp BP Pulse Ox 98.0 F 62 18 88/56 96 03/14/18 10:35 03/14/18 10:35 03/14/18 10:35 03/14/18 10:35 03/14/18 10:35 - Eyes PERRL, normal ocular movement - Respiratory normal expansion, normal respiratory effort (Decreased breath sounds noted at the bases bilaterally) - Cardiovascular Cardiovascular exam: Present: RRR, regular rhythm, murmurs - Abdomen Abdomen general surgery: Present: bowel sounds present, soft, tender (Out pain to palpation left lower quadrant and pelvic region. No masses palpated) - Neurologic Present: CN 2-12 grossly intact - Musculoskeletal Present: other (No clubbing or cyanosis) Exam Initial Vital Signs Temp Pulse Resp BP Pulse Ox 98.0 F 62 18 88/56 96 03/14/18 10:35 03/14/18 10:35 03/14/18 10:35 03/14/18 10:35 03/14/18 10:35 Results - Labs 03/15/18 05:16 03/15/18 05:16 Abnormal lab results WBC 19.9 K/mcL (4.3-11.1) H 03/14/18 11:06 RBC 3.63 M/mcL (3.82-4.97) L 03/14/18 11:06 Hgb 10.2 g/dL (11.5-15.4) L 03/14/18 16:15 Hct 29.1 % (35.3-44.9) L 03/14/18 16:15 RDW 15.1 % (11.5-14.5) H 03/14/18 11:06 Neutrophils # 15.4 K/mcL (1.6-8.9) H 03/14/18 11:06 Monocytes # 1.5 K/mcL (0.0-1.3) H 03/14/18 11:06 PT 24.0 Seconds (9.4-12.1) H 03/14/18 11:06 Carbon Dioxide 31 mEq/L (23-29) H 03/14/18 11:06 BUN 79 mg/dL (8-23) H 03/14/18 11:06 Creatinine 1.54 mg/dL (0.60-1.20) H 03/14/18 11:06 Est GFR ( Amer) 39 (> 60) L 03/14/18 11:06 Est GFR (Non-Af Amer) 32 (> 60) L 03/14/18 11:06 BUN/Creatinine Ratio 51 (6-26) H 03/14/18 11:06 Glucose 115 mg/dL (70-105) H 03/14/18 11:06 Calculated Osmolality 317 (280-300) H 03/14/18 11:06 AST 12 Units/L (13-39) L 03/14/18 11:06 Troponin I 0.05 ng/mL (< 0.04) H* 03/14/18 11:06 Serum Total Protein 6.2 g/dL (6.4-8.9) L 03/14/18 11:06 Ur Leukocyte Esterase Moderate (Negative) H 03/14/18 10:47 Urine Microscopic WBC 5-15 per hpf (0-3) H 03/14/18 10:47 Ur Squamous Epith Cells Moderate per lpf (None-Few) H 03/14/18 10:47 Ur Culture Indicated? YES (NO) A 03/14/18 10:47 Stool Occult Bld Scrn Positive (Negative) A 03/14/18 12:24 All other labs normal. - Imaging CT scan - abdomen: report reviewed, image reviewed (CT scan images and report reviewed by me. Noted evidence of diverticulosis with some mild stranding in the descending colon consistent with diverticulitis. No free air or free fluid noted.) Consult Discharge Plan - Plan Referrals: Reji Mccray DO [Primary Care Provider] -
[2018-03-14] MEDS ORDERED: 0.9 % Sodium Chloride 250 ML ONE (17:53)
[2018-03-14] MEDS: Piperacillin/Tazobactam 3.375 GM in 0.9 % Sodium Chloride Mini Bag 100 ML IVPB SCH (21:20)
[2018-03-14 21:30] LABS: Hematocrit 26.6 % (35.3-44.9); Hemoglobin 8.9 g/dL (11.5-15.4)
[2018-03-15] MEDS: traMADol 50 MG TABLET PO PRN ×2 (00:19→22:30)
[2018-03-15] MEDS ORDERED: 0.9 % Sodium Chloride 250 ML ONE (00:48)
[2018-03-15 05:30] LABS: Hematocrit 25.5 % (35.3-44.9); Hemoglobin 8.5 g/dL (11.5-15.4)
[2018-03-15 05:34] LABS: INR 1.7; Prothrombin Time 19.4 Seconds (9.4-12.1)
[2018-03-15 05:48] LABS: Albumin 3.2 g/dL (3.5-5.7); Albumin/Globulin Ratio 1.6 (1.1-2.2); Bilirubin,Total 0.8 mg/dL (0.3-1.0); Calcium 8.5 mg/dL (8.6-10.3); Potassium 3.8 mEq/L (3.5-5.1); Total Protein 5.2 g/dL (6.4-8.9)
--- NOTE | 2018-03-15 06:18 | Event Note ---
Date of Encounter: 03/15/18 Time of Encounter: 06:18 Patient complaining of chest pain approximately 0500 hrs. EKG was obtained at that time as well as a troponin. EKG performed at 0506 shows sinus rhythm, left atrial enlargement and possible ST changes in anterior and lateral leads. Patient was given nitroglycerin with relief of her pain. She stated that this is different from her previous [place] pain. Repeat EKG obtained at 0600 hrs. No significant changes appreciated. Patient is admitted for possible GI bleed requiring 2 units of blood and continuing to drop. She has not a candidate for heparin drip at this time. After reviewing EKG with both myself and attending physician, we do not feel that these ST changes are reflective of acute STEMI. Repeat troponin was unchanged with admission troponin 0.05, repeat troponin 0.05. We will continue to trend. This may be related to possible NSTEMI versus increased demand ischemia secondary to GI bleed. Given that we do not have the option to start anticoagulation, we will monitor the patient. It is reasonable to consider a cardiology consult in the future if her pain should return or worsen.
--- NOTE | 2018-03-15 06:31 | Electrocardiograph Report ---
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
[2018-03-15] MEDS: Pantoprazole 40 MG VIAL IVP SCH ×2 (06:37→17:21)
[2018-03-15 08:38] LABS: Basophils % 0.2 %; Eosinophils # 0.2 K/mcL (0.0-0.6); Eosinophils % 1.7 %; Hemoglobin 8.2 g/dL (11.5-15.4); Immature Granulocytes % 1.1 % (0-4); Lymphocytes % 16.2 %; Mean Corpuscular HGB Conc 34.2 g/dL (31.6-35.5); Mean Corpuscular Hemoglobin 30.8 pg (28.0-33.3); Mean Corpuscular Volume 90.2 fL (83.0-100.0); Mean Platelet Volume 10.8 fL (9.4-12.4); Monocytes # 0.8 K/mcL (0.0-1.3); Monocytes % 6.6 %; Neutrophils # 9.1 K/mcL (1.6-8.9); Platelet Count 169 K/mcL (140-400); Red Blood Count 2.66 M/mcL (3.82-4.97); Red Cell Distribution Width 14.8 % (11.5-14.5); Segmented Neutrophils % 74.2 %
[2018-03-15] MEDS ORDERED: Diltiazem CD (24hr) 240 MG CAPSULE PO SCH (09:00)
[2018-03-15] MEDS ORDERED: NON-FORMULARY MEDICATION 1 EACH EACH (Pantoprazole Sodium [Protonix] 40 MG) PO SCH (09:00)
[2018-03-15] MEDS: Piperacillin/Tazobactam 3.375 GM in 0.9 % Sodium Chloride Mini Bag 100 ML IVPB SCH ×2 (09:12→21:31)
--- NOTE | 2018-03-15 10:39 | Internal Med Progress Note ---
Hospitalist Progress Note - Encounter Date of Encounter: 03/15/18 Time of Encounter: 10:36 - Subjective Interval History: She reported had one black tarry stool this morning, Lower abdominal pain has improved. Lightheadedness has improved with IV fluid. He has no nausea, vomiting, or diarrhea. - Exam Vitals: Temp Pulse Resp BP Pulse Ox 97.8 F 62 16 98/50 100 03/15/18 07:45 03/15/18 07:45 03/15/18 07:45 03/15/18 07:45 03/15/18 07:45 Exam: PHYSICAL EXAMINATION: GENERAL APPEARANCE: The patient is alert, oriented and in no acute distress. HEENT: Head is normocephalic. The sinuses are nontender. Pupils are equal and reactive. The nares are patent. Oropharynx clear without lesions. NECK: Supple without lymphadenopathy. HEART: Regular rate and rhythm. LUNGS: No crackles or wheezes are heard. ABDOMEN: Soft, mildly tender, nondistended with good bowel sounds heard. Inguinal area is normal. EXTREMITIES: Without cyanosis, clubbing or edema. NEUROLOGICAL: Gross nonfocal. SKIN: Warm and dry without any rash. - Assessment and Plan (1) GI bleed Current Visit: Yes Status: Acute Assessment and Plan: 87-year-old female with past medical history of diverticulosis, atrial fibrillation on Coumadin, CAD on aspirin and Plavix, CKD, and hypertension presented with weakness and black stool. Guaiac positive. CT abdomen possible early stage of diverticulitis. - Continue IV PPI. - INR 2.1 yesterday, received 10 mg vitamin K subcutaneous and 2 units FFP. INR today 1.7. - blood pressure borderline low, continue IV fluid, hold all the blood pressure medicine including Lasix. - Continue cycling H/H, transfuse if Hgb less than 7. He seems hemoglobin stable at 8.0 currently. - NPO. Surgery following. (2) Diverticulitis large intestine Current Visit: Yes Status: Acute Assessment and Plan: She received Cipro and Flagyl IV at ED, continue Zosyn. (3) Atrial fibrillation Current Visit: No Status: Chronic Assessment and Plan: hold Coumadin and all the blood pressure medicine including Cardizem ( low BP). (4) CKD (chronic kidney disease) Current Visit: Yes Status: Acute Assessment and Plan: at the baseline, continue monitoring. (5) Systolic CHF, chronic Current Visit: No Status: Acute Assessment and Plan: Patient currently volume depleted, hold Lasix, low blood pressure, hold all the BP medications. (6) CAD (coronary artery disease) Current Visit: No Status: Chronic (7) Hyperlipemia Current Visit: No Status: Chronic Assessment and Plan: Continue home medication. (8) Hypertension Current Visit: No Status: Chronic Assessment and Plan: Low BP, hold all the blood pressure medicine. (9) DVT prophylaxis Current Visit: Yes Status: Acute Assessment and Plan: SCDs - Time Spent with Patient Total time spent is greater than 50% in coordination of care (as documented) at patient's floor/unit and/or counseling patient: Greater than 35 minutes Plan of Care Discussed with: patient Internal Medicine: Result - Labs CBC & Chem 7: 03/15/18 08:10 03/15/18 05:16 Labs: Short CBC 03/14/18 03/14/18 03/15/18 Range/Units 16:15 21:01 05:16 WBC (4.3-11.1) K/mcL Hgb 10.2 L 8.9 L 8.5 L (11.5-15.4) g/dL Hct 29.1 L 26.6 L 25.5 L (35.3-44.9) % Plt Count (140-400) K/mcL Neutrophils # (1.6-8.9) K/mcL 03/15/18 Range/Units 08:10 WBC 12.3 H (4.3-11.1) K/mcL Hgb 8.2 L (11.5-15.4) g/dL Hct 24.0 L (35.3-44.9) % Plt Count 169 (140-400) K/mcL Neutrophils # 9.1 H (1.6-8.9) K/mcL BMP 03/15/18 05:16 Sodium 141 Potassium 3.8 Chloride 111 H Carbon Dioxide 25 BUN 70 H Creatinine 1.17 Glucose 99 Calcium 8.5 L Cardiac Enzymes 03/15/18 Range/Units 05:16 Troponin I 0.05 H* (< 0.04) ng/mL Liver Function 03/15/18 Range/Units 05:16 Total Bilirubin 0.8 (0.3-1.0) mg/dL AST 11 L (13-39) Units/L ALT 11 (7-52) Units/L Alkaline Phosphatase 52 (34-104) Units/L Albumin 3.2 L (3.5-5.7) g/dL - ABG Interpretation ABG results: PT/INR, D-dimer PT 19.4 Seconds (9.4-12.1) H 03/15/18 05:16 - VTE Documentation of Mechanical Device: Intermittent pneumatic compression device Consult Discharge Plan - Plan Referrals: Reji Mccray DO [Primary Care Provider] - (1) GI bleed Qualifiers: GI bleed type/associated pathology: melena Qualified Code(s): K92.1 - Melena (2) Diverticulitis large intestine Qualifiers: Diverticulitis bleeding: unspecified bleeding status Diverticulitis complication: unspecified complication status Qualified Code(s): K57.32 - Diverticulitis of large intestine without perforation or abscess without bleeding (3) Atrial fibrillation Qualifiers: Atrial fibrillation type: paroxysmal Qualified Code(s): I48.0 - Paroxysmal atrial fibrillation (4) CKD (chronic kidney disease) Qualifiers: Chronic kidney disease stage: stage 2 (mild) Qualified Code(s): N18.2 - Chronic kidney disease, stage 2 (mild) (6) CAD (coronary artery disease) Qualifiers: Coronary Disease-Associated Artery/Lesion type: [place] artery [place] vs. transplanted heart: [place] heart Associated angina: with unstable angina Qualified Code(s): I25.110 - Atherosclerotic heart disease of [place] coronary artery with unstable angina pectoris (7) Hyperlipemia Qualifiers: Hyperlipidemia type: unspecified Qualified Code(s): E78.5 - Hyperlipidemia, unspecified (8) Hypertension Qualifiers: Hypertension type: essential hypertension Qualified Code(s): I10 - Essential (primary) hypertension
[2018-03-15 10:57] LABS: Hematocrit 24.7 % (35.3-44.9); Hemoglobin 8.7 g/dL (11.5-15.4)
--- NOTE | 2018-03-15 11:00 | General Surgery Progress Note ---
<[place],Sylvie Selvin - Last Filed: 03/15/18 14:37> Date of Encounter: 03/15/18 Time of Encounter: 10:45 - Assessment and Plan (1) GI bleeding Current Visit: Yes Status: Acute Patient with 1 episode of dark red stool last evening Most likely consistent with diverticular disease Denies any reflux or epigastric discomfort Expected decrease in Hgb with resuscitation 11.1>10.2>8.9>8.2>8.7 INR- 2.1>1.7 with plasma Continue to monitor Hgb/Hct PPI therapy BID Consider decrease in MIV fluid rate May have clear liquid diet In the setting of diverticulitis, recommend interval colonoscopy in 6-8 weeks Qualifiers: GI bleed type/associated pathology: unspecified gastrointestinal hemorrhage type Qualified Code(s): K92.2 - Gastrointestinal hemorrhage, unspecified (2) Diverticulitis Current Visit: Yes Status: Acute IV antibiotics- Zosyn Clear liquids Serial abdominal exams- improving Plan for interval colonoscopy in 6-8 weeks Subjective Patient reports: no new complaints, feels better, still having pain, pain is less, voiding w/o difficulty, flatus, bowel movement (1 stool noted last night- dark red), afebrile Objective Vital Signs - Last 8 Hours Temp Pulse Resp BP Pulse Ox 03/15/18 10:42 98.1 F 61 16 104/55 100 03/15/18 07:45 97.8 F 62 16 98/50 100 03/15/18 04:52 98 F 78 17 105/60 97 03/15/18 03:52 98.7 F 60 16 106/60 96 Intake and Output 03/14/18 03/15/18 03/15/18 23:59 07:59 15:59 Intake Total 420 / 420 650 / 650 0 / 0 Output Total 600 / 600 300 / 300 0 / 0 Balance -180 / -180 350 / 350 0 / 0 Intake: IV Fluids 300 / 300 100 / 100 0.9 % Sodium Chloride 1,000 ML 300 / 300 0 / 0 @ 125 mls/hr IVC .Q8H NANCY Rx#: [id number] Zosyn 3.375 GM In 0.9 % Sodium 100 / 100 Chloride (Mini-Bag +) 100 ML @ 25 mls/hr IVPB BID NANCY Rx#: [id number] Oral 120 / 120 0 / 0 0 / 0 Blood Product 0 / 0 550 / 550 Plasma Unit [id number] 300 / 300 Plasma Unit [id number] 0 / 0 250 / 250 Output: Urine 600 / 600 300 / 300 0 / 0 Other: Meal Breakfast Percent of Meal Consumed 0% Stool Size Large Stool Consistency loose Stool Color Black Dark Red Blood # Bowel Movements 1 Weight 58.6 kg Patient Weight 03/15/18 23:59 Weight 58.6 kg - General physical appearance well developed, well nourished, no distress, chronically ill - Eyes normal ocular movement - ENT dry mucosa, atraumatic, normocephalic - Neck Neck exam: trachea midline - Respiratory normal respiratory effort, clear to auscultation, other (diminished bibasilar bases) - Cardiovascular Cardiovascular exam: Present: irregular rhythm, murmurs - Abdomen Abdomen: Present: bowel sounds present, soft, tender (minimal and improved) Abdominal Tenderness: suprapubic - Neurologic CN 2-12 grossly intact - Psychiatric oriented to time, oriented to person, oriented to place, speech is normal, memory intact - Labs 03/15/18 09:39 03/15/18 05:16 Diabetes panel 03/15/18 Range/Units 05:16 Sodium 141 (136-145) mEq/L Potassium 3.8 (3.5-5.1) mEq/L Chloride 111 H (98-107) mEq/L Carbon Dioxide 25 (23-29) mEq/L BUN 70 H (8-23) mg/dL Creatinine 1.17 (0.60-1.20) mg/dL Glucose 99 (70-105) mg/dL Calcium 8.5 L (8.6-10.3) mg/dL AST 11 L (13-39) Units/L ALT 11 (7-52) Units/L Alkaline Phosphatase 52 (34-104) Units/L Albumin 3.2 L (3.5-5.7) g/dL Calcium panel 03/15/18 Range/Units 05:16 Calcium 8.5 L (8.6-10.3) mg/dL Albumin 3.2 L (3.5-5.7) g/dL Pituitary panel 03/15/18 Range/Units 05:16 Sodium 141 (136-145) mEq/L Potassium 3.8 (3.5-5.1) mEq/L Chloride 111 H (98-107) mEq/L Carbon Dioxide 25 (23-29) mEq/L BUN 70 H (8-23) mg/dL Creatinine 1.17 (0.60-1.20) mg/dL Glucose 99 (70-105) mg/dL Calcium 8.5 L (8.6-10.3) mg/dL Adrenal panel 03/15/18 Range/Units 05:16 Sodium 141 (136-145) mEq/L Potassium 3.8 (3.5-5.1) mEq/L Chloride 111 H (98-107) mEq/L Carbon Dioxide 25 (23-29) mEq/L BUN 70 H (8-23) mg/dL Creatinine 1.17 (0.60-1.20) mg/dL Glucose 99 (70-105) mg/dL Calcium 8.5 L (8.6-10.3) mg/dL Total Bilirubin 0.8 (0.3-1.0) mg/dL AST 11 L (13-39) Units/L ALT 11 (7-52) Units/L Alkaline Phosphatase 52 (34-104) Units/L Albumin 3.2 L (3.5-5.7) g/dL - VTE Documentation of Mechanical Device: Intermittent pneumatic compression device Consult Discharge Plan - Plan Referrals: Tyron Guzman MD [Partnered Physician] - 03/29/18 10:00 am Jaylen Pugh MD [Partnered Physician] - 06/28/18 8:15 am Reji Mccray DO [Primary Care Provider] - - Attending Attestation For this encounter, I have reviewed the [employer] or PA documentation, treatment plan, and medical decision making; and I have had face to face time with this patient. <Tyron Guzman - Last Filed: 03/16/18 07:40> Date of Encounter: 03/15/18 - Assessment and Plan (1) GI bleed Current Visit: Yes Status: Acute Qualifiers: GI bleed type/associated pathology: melena Qualified Code(s): K92.1 - Melena (2) Diverticulitis Current Visit: Yes Status: Acute Objective Vital Signs - Last 8 Hours Temp Pulse Resp BP Pulse Ox 03/16/18 05:27 98.3 F 64 18 106/55 98 03/16/18 01:41 101/70 03/16/18 01:28 97.7 F 64 16 85/56 98 Intake and Output 03/15/18 03/15/18 03/16/18 15:59 23:59 07:59 Intake Total 800 / 800 0 / 0 50 / 50 Output Total 700 / 700 Balance 100 / 100 0 / 0 50 / 50 Intake: IV Fluids 800 / 800 0.9 % Sodium Chloride 1,000 ML 700 / 700 @ 125 mls/hr IVC .Q8H NANCY Rx#: [id number] Zosyn 3.375 GM In 0.9 % Sodium 100 / 100 Chloride (Mini-Bag +) 100 ML @ 25 mls/hr IVPB BID NANCY Rx#: [id number] Oral 0 / 0 0 / 0 50 / 50 Output: Urine 700 / 700 Other: Meal Breakfast Percent of Meal Consumed 0% # Voids 0 0 Weight 61.2 kg Patient Weight 03/16/18 23:59 Weight 61.2 kg - Labs 03/16/18 04:21 03/16/18 04:21 Diabetes panel 03/16/18 Range/Units 04:21 Sodium 142 (136-145) mEq/L Potassium 3.9 (3.5-5.1) mEq/L Chloride 114 H (98-107) mEq/L Carbon Dioxide 24 (23-29) mEq/L BUN 50 H (8-23) mg/dL Creatinine 1.03 (0.60-1.20) mg/dL Glucose 98 (70-105) mg/dL Calcium 8.3 L (8.6-10.3) mg/dL Calcium panel 03/16/18 Range/Units 04:21 Calcium 8.3 L (8.6-10.3) mg/dL Pituitary panel 03/16/18 Range/Units 04:21 Sodium 142 (136-145) mEq/L Potassium 3.9 (3.5-5.1) mEq/L Chloride 114 H (98-107) mEq/L Carbon Dioxide 24 (23-29) mEq/L BUN 50 H (8-23) mg/dL Creatinine 1.03 (0.60-1.20) mg/dL Glucose 98 (70-105) mg/dL Calcium 8.3 L (8.6-10.3) mg/dL Adrenal panel 03/16/18 Range/Units 04:21 Sodium 142 (136-145) mEq/L Potassium 3.9 (3.5-5.1) mEq/L Chloride 114 H (98-107) mEq/L Carbon Dioxide 24 (23-29) mEq/L BUN 50 H (8-23) mg/dL Creatinine 1.03 (0.60-1.20) mg/dL Glucose 98 (70-105) mg/dL Calcium 8.3 L (8.6-10.3) mg/dL - Attending Attestation I reviewed the above assessment and evaluation and agree with the above plan. No active bleeding noted. Decreased to no abdominal pain. Will advance diet to full liquids. Discussed with Dr. Blakely regarding plan for not performing an endoscopy at this time to allow the area of diverticulitis to heal. Continue with IV antibiotics.
[2018-03-15] MEDS: 0.9 % Sodium Chloride 1,000 ML IVC SCH (12:19)
--- NOTE | 2018-03-15 17:14 | Electrocardiograph Report ---
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
--- NOTE | 2018-03-15 17:16 | Electrocardiograph Report ---
[place] [address] Test Date: 2018-03-15 Pat Name: Morelia Houston Department: 111 Room: 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
[2018-03-16 04:47] LABS: Basophils % 0.2 %; Eosinophils # 0.4 K/mcL (0.0-0.6); Eosinophils % 3.8 %; Hematocrit 24.9 % (35.3-44.9); Hemoglobin 8.1 g/dL (11.5-15.4); Lymphocytes # 1.9 K/mcL (0.6-4.6); Lymphocytes % 18.2 %; Mean Corpuscular HGB Conc 32.5 g/dL (31.6-35.5); Mean Corpuscular Hemoglobin 30.8 pg (28.0-33.3); Mean Corpuscular Volume 94.7 fL (83.0-100.0); Mean Platelet Volume 10.4 fL (9.4-12.4); Monocytes # 0.7 K/mcL (0.0-1.3); Monocytes % 6.6 %; Neutrophils # 7.3 K/mcL (1.6-8.9); Platelet Count 165 K/mcL (140-400); Red Blood Count 2.63 M/mcL (3.82-4.97); Red Cell Distribution Width 15.1 % (11.5-14.5); Segmented Neutrophils % 70.2 %
[2018-03-16 05:10] LABS: BUN/Creatinine Ratio 49 (6-26); Blood Urea Nitrogen 50 mg/dL (8-23); Calcium 8.3 mg/dL (8.6-10.3); Carbon Dioxide 24 mEq/L (23-29); Chloride 114 mEq/L (98-107); Glucose 98 mg/dL (70-105); Osmolality,Calculated 307 (280-300); Potassium 3.9 mEq/L (3.5-5.1); Sodium 142 mEq/L (136-145); eGFR For Non-African Americans 51 (> 60)
[2018-03-16] MEDS: Pantoprazole 40 MG VIAL IVP SCH ×2 (06:09→18:05)
--- NOTE | 2018-03-16 07:33 | General Surgery Progress Note ---
Date of Encounter: 03/16/18 Time of Encounter: 07:30 - Assessment and Plan (1) GI bleed Current Visit: Yes Status: Acute Hgb is 8.1. I think that her HgB level is finally stabilizing and she has no evidence of active bleeding. I explained to the patient that she will still have some stool that is dark in color due to the fact that there is still stool present within the colon that needs to be evacuated. That dark stool is indicative of old blood and I think it would be appropriate to advance her to solids. Will follow from a distance. Once transitioned to oral antibiotics I would recommend 10 days of either Augmentin BID or combination of Cipro BID/ Flagyl BID. Once she is discharged we will make certain she has a follow up appointment in two weeks. Qualifiers: GI bleed type/associated pathology: melena Qualified Code(s): K92.1 - Melena (2) Diverticulitis Current Visit: Yes Status: Acute See above. Subjective Patient reports: no new complaints (No abdominal pain. Tolerated full liquids. No nausea or vomiting. NO BM. Positive flatus.) Objective Vital Signs - Last 8 Hours Temp Pulse Resp BP Pulse Ox 03/16/18 05:27 98.3 F 64 18 106/55 98 03/16/18 01:41 101/70 03/16/18 01:28 97.7 F 64 16 85/56 98 Intake and Output 03/15/18 03/15/18 03/16/18 15:59 23:59 07:59 Intake Total 800 / 800 0 / 0 50 / 50 Output Total 700 / 700 Balance 100 / 100 0 / 0 50 / 50 Intake: IV Fluids 800 / 800 0.9 % Sodium Chloride 1,000 ML 700 / 700 @ 125 mls/hr IVC .Q8H NANCY Rx#: [id number] Zosyn 3.375 GM In 0.9 % Sodium 100 / 100 Chloride (Mini-Bag +) 100 ML @ 25 mls/hr IVPB BID NANCY Rx#: [id number] Oral 0 / 0 0 / 0 50 / 50 Output: Urine 700 / 700 Other: Meal Breakfast Percent of Meal Consumed 0% # Voids 0 0 Weight 61.2 kg Patient Weight 03/16/18 23:59 Weight 61.2 kg - General physical appearance well developed, no distress - Abdomen Abdomen: Present: soft, non tender - Labs 03/16/18 04:21 03/16/18 04:21 Diabetes panel 03/16/18 Range/Units 04:21 Sodium 142 (136-145) mEq/L Potassium 3.9 (3.5-5.1) mEq/L Chloride 114 H (98-107) mEq/L Carbon Dioxide 24 (23-29) mEq/L BUN 50 H (8-23) mg/dL Creatinine 1.03 (0.60-1.20) mg/dL Glucose 98 (70-105) mg/dL Calcium 8.3 L (8.6-10.3) mg/dL Calcium panel 03/16/18 Range/Units 04:21 Calcium 8.3 L (8.6-10.3) mg/dL Pituitary panel 03/16/18 Range/Units 04:21 Sodium 142 (136-145) mEq/L Potassium 3.9 (3.5-5.1) mEq/L Chloride 114 H (98-107) mEq/L Carbon Dioxide 24 (23-29) mEq/L BUN 50 H (8-23) mg/dL Creatinine 1.03 (0.60-1.20) mg/dL Glucose 98 (70-105) mg/dL Calcium 8.3 L (8.6-10.3) mg/dL Adrenal panel 03/16/18 Range/Units 04:21 Sodium 142 (136-145) mEq/L Potassium 3.9 (3.5-5.1) mEq/L Chloride 114 H (98-107) mEq/L Carbon Dioxide 24 (23-29) mEq/L BUN 50 H (8-23) mg/dL Creatinine 1.03 (0.60-1.20) mg/dL Glucose 98 (70-105) mg/dL Calcium 8.3 L (8.6-10.3) mg/dL - VTE Documentation of Mechanical Device: Intermittent pneumatic compression device Consult Discharge Plan - Plan Referrals: Tyron Guzman MD [Partnered Physician] - 03/29/18 10:00 am Jaylen Pugh MD [Partnered Physician] - 06/28/18 8:15 am Reji Mccray DO [Primary Care Provider] -
[2018-03-16] MEDS: Piperacillin/Tazobactam 3.375 GM in 0.9 % Sodium Chloride Mini Bag 100 ML IVPB SCH ×2 (10:23→20:08)
--- NOTE | 2018-03-16 12:32 | Internal Med Progress Note ---
Hospitalist Progress Note - Encounter Date of Encounter: 03/16/18 Time of Encounter: 12:33 - Subjective Interval History: Patient reported to have black stool overnight, her blood pressure was soft to this morning, she also had lightheadedness when he stood up. She denies chest pain, shortness breath, or syncope. She has no abdominal pain, nausea, or diarrhea. - Exam Vitals: Temp Pulse Resp BP Pulse Ox 97.5 F L 63 15 95/49 100 03/16/18 10:50 03/16/18 10:50 03/16/18 10:50 03/16/18 10:50 03/16/18 10:50 Exam: PHYSICAL EXAMINATION: GENERAL APPEARANCE: The patient is alert, oriented and in no acute distress. HEENT: Head is normocephalic. The sinuses are nontender. Pupils are equal and reactive. The nares are patent. Oropharynx clear without lesions. NECK: Supple without lymphadenopathy. HEART: Regular rate and rhythm. LUNGS: No crackles or wheezes are heard. ABDOMEN: Soft, nontender, nondistended with good bowel sounds heard. Inguinal area is normal. EXTREMITIES: Without cyanosis, clubbing or edema. NEUROLOGICAL: Gross nonfocal. SKIN: Warm and dry without any rash. - Assessment and Plan (1) GI bleed Current Visit: Yes Status: Acute Assessment and Plan: 87-year-old female with past medical history of diverticulosis, atrial fibrillation on Coumadin, CAD on aspirin and Plavix, CKD, and hypertension presented with weakness and black stool. Guaiac positive. CT abdomen possible early stage of diverticulitis. - H/H stable at 8.5 currently, BUN trending down, indicating GI bleed likely ceased. - Continue PPI, continue to hold all the blood thinners including asa, plavix, and coumadin. - continue abx. - advance diet, continue monitor H/H, paln to dc in am if H/H stable. outpt f/u with surgery for possible scopes. (2) Diverticulitis large intestine Current Visit: Yes Status: Acute Assessment and Plan: She received Cipro and Flagyl IV at ED, continue Zosyn. will change to oral abx tomorrow. (3) Atrial fibrillation Current Visit: No Status: Chronic Assessment and Plan: hold Coumadin and all the blood pressure medicine including Cardizem ( low BP). (4) CKD (chronic kidney disease) Current Visit: Yes Status: Resolved (5) Systolic CHF, chronic Current Visit: No Status: Chronic Assessment and Plan: Patient currently volume depleted, hold Lasix, low blood pressure, hold all the BP medications. (6) CAD (coronary artery disease) Current Visit: No Status: Chronic Assessment and Plan: Hold aspirin and Plavix due to GI bleeding. (7) Hyperlipemia Current Visit: No Status: Chronic Assessment and Plan: Continue home medication. (8) Hypertension Current Visit: No Status: Chronic Assessment and Plan: Low BP, hold all the blood pressure medicine. (9) DVT prophylaxis Current Visit: Yes Status: Acute Assessment and Plan: SCDs - Time Spent with Patient Total time spent is greater than 50% in coordination of care (as documented) at patient's floor/unit and/or counseling patient: Greater than 35 minutes Plan of Care Discussed with: patient Internal Medicine: Result - Labs CBC & Chem 7: 03/16/18 04:21 03/16/18 04:21 Labs: Short CBC 03/16/18 Range/Units 04:21 WBC 10.4 (4.3-11.1) K/mcL Hgb 8.1 L (11.5-15.4) g/dL Hct 24.9 L (35.3-44.9) % Plt Count 165 (140-400) K/mcL Neutrophils # 7.3 (1.6-8.9) K/mcL BMP 03/16/18 04:21 Sodium 142 Potassium 3.9 Chloride 114 H Carbon Dioxide 24 BUN 50 H Creatinine 1.03 Glucose 98 Calcium 8.3 L - ABG Interpretation ABG results: PT/INR, D-dimer PT 19.4 Seconds (9.4-12.1) H 03/15/18 05:16 - VTE Documentation of Mechanical Device: Intermittent pneumatic compression device Consult Discharge Plan - Plan Referrals: Tyron Guzman MD [Partnered Physician] - 03/29/18 10:00 am Jaylen Pugh MD [Partnered Physician] - 06/28/18 8:15 am Reji Mccray DO [Primary Care Provider] - (1) GI bleed Qualifiers: GI bleed type/associated pathology: melena Qualified Code(s): K92.1 - Melena (2) Diverticulitis large intestine Qualifiers: Diverticulitis bleeding: unspecified bleeding status Diverticulitis complication: unspecified complication status Qualified Code(s): K57.32 - Diverticulitis of large intestine without perforation or abscess without bleeding (3) Atrial fibrillation Qualifiers: Atrial fibrillation type: paroxysmal Qualified Code(s): I48.0 - Paroxysmal atrial fibrillation (4) CKD (chronic kidney disease) Qualifiers: Chronic kidney disease stage: stage 2 (mild) Qualified Code(s): N18.2 - Chronic kidney disease, stage 2 (mild) (6) CAD (coronary artery disease) Qualifiers: Coronary Disease-Associated Artery/Lesion type: [place] artery [place] vs. transplanted heart: [place] heart Associated angina: with unstable angina Qualified Code(s): I25.110 - Atherosclerotic heart disease of [place] coronary artery with unstable angina pectoris (7) Hyperlipemia Qualifiers: Hyperlipidemia type: unspecified Qualified Code(s): E78.5 - Hyperlipidemia, unspecified (8) Hypertension Qualifiers: Hypertension type: essential hypertension Qualified Code(s): I10 - Essential (primary) hypertension
[2018-03-16] MEDS: Ringers Solution, Lactated 1,000 ML IVC SCH ×2 (13:02→22:59)
[2018-03-16] MEDS: traMADol 50 MG TABLET PO PRN (22:59)
[2018-03-17] MEDS: Pantoprazole 40 MG VIAL IVP SCH (05:32)
[2018-03-17 05:34] LABS: Basophils % 0.4 %; Eosinophils # 0.4 K/mcL (0.0-0.6); Eosinophils % 3.9 %; Hematocrit 26.2 % (35.3-44.9); Hemoglobin 8.2 g/dL (11.5-15.4); Immature Granulocytes % 0.9 % (0-4); Lymphocytes # 1.9 K/mcL (0.6-4.6); Lymphocytes % 21.5 %; Mean Corpuscular HGB Conc 31.3 g/dL (31.6-35.5); Mean Corpuscular Hemoglobin 30.5 pg (28.0-33.3); Mean Corpuscular Volume 97.4 fL (83.0-100.0); Mean Platelet Volume 10.5 fL (9.4-12.4); Monocytes # 0.7 K/mcL (0.0-1.3); Monocytes % 8.3 %; Neutrophils # 5.8 K/mcL (1.6-8.9); Platelet Count 171 K/mcL (140-400); Red Blood Count 2.69 M/mcL (3.82-4.97)
[2018-03-17 05:48] LABS: BUN/Creatinine Ratio 37 (6-26); Blood Urea Nitrogen 37 mg/dL (8-23); Calcium 8.4 mg/dL (8.6-10.3); Carbon Dioxide 24 mEq/L (23-29); Chloride 113 mEq/L (98-107); Glucose 103 mg/dL (70-105); Osmolality,Calculated 301 (280-300); Potassium 3.8 mEq/L (3.5-5.1); Sodium 141 mEq/L (136-145); eGFR For Non-African Americans 53 (> 60)
[2018-03-17 07:37] VITALS: BP 103/71
[2018-03-17] MEDS: Piperacillin/Tazobactam 3.375 GM in 0.9 % Sodium Chloride Mini Bag 100 ML IVPB SCH (10:06)
[2018-03-17] MEDS: Ringers Solution, Lactated 1,000 ML IVC SCH (10:19)
--- NOTE | 2018-03-17 10:37 | Discharge Summary ---
- NOTES TO OUTPATIENT PROVIDER Notes to Outpatient Provider: f/u with Dr. Guzman within next week for GI bleeding. F/U with PCP about resuming ASA, Plavix, and Coumadin, please also coordiate with Surgery about when to resume blood thinners. Orders not resulted at time of discharge: Pending orders 03/15/18 05:35 EKG [ECG 12 lead ECG] [ECG] Stat Date of Encounter: 03/17/18 Time of Encounter: 10:34 - Discharge Diagnosis (1) GI bleed Priority: Primary Status: Acute Qualifiers: GI bleed type/associated pathology: melena Qualified Code(s): K92.1 - Melena (2) Diverticulitis large intestine Priority: Primary Status: Acute Qualifiers: Diverticulitis bleeding: unspecified bleeding status Diverticulitis complication: unspecified complication status Qualified Code(s): K57.32 - Diverticulitis of large intestine without perforation or abscess without bleeding (3) Atrial fibrillation Priority: Secondary Status: Chronic Qualifiers: Atrial fibrillation type: paroxysmal Qualified Code(s): I48.0 - Paroxysmal atrial fibrillation (4) CKD (chronic kidney disease) Priority: Secondary Status: Resolved Qualifiers: Chronic kidney disease stage: stage 2 (mild) Qualified Code(s): N18.2 - Chronic kidney disease, stage 2 (mild) (5) Systolic CHF, chronic Priority: Secondary Status: Chronic (6) CAD (coronary artery disease) Priority: Secondary Status: Chronic Qualifiers: Coronary Disease-Associated Artery/Lesion type: [place] artery [place] vs. transplanted heart: [place] heart Associated angina: with unstable angina Qualified Code(s): I25.110 - Atherosclerotic heart disease of [place] coronary artery with unstable angina pectoris (7) Hyperlipemia Priority: Secondary Status: Chronic Qualifiers: Hyperlipidemia type: unspecified Qualified Code(s): E78.5 - Hyperlipidemia , unspecified (8) Hypertension Priority: Secondary Status: Chronic Qualifiers: Hypertension type: essential hypertension Qualified Code(s): I10 - Essential (primary) hypertension (9) DVT prophylaxis Priority: Primary Status: Acute Hospital course: Ms. Houston is a 87 year old female brought in by grandson for further evaluation of generalized weakness. 2 days patient has had lower abdominal pain and complaints of dark stool. She has had GI bleeding in the past and is concerned about this. Grandson is also concerned as she has been more fatigued than usual not wanting to get up and around. At the ED, patient blood pressure was notably low, stool for occult blood is positive, she also has leukocytosis, CT abdomen showed diffuse diverticulosis with possible only stage diverticulitis at the mid to lower colon. She received 1 dose of Cipro and Flagyl. Patient had a history of CAD, atrial fibrillation, and the CKD, she was on 3 different of blood thinner including aspirin, Plavix, Coumadin. INR was 2.1 upon admission, which was reversed with vitamin K and FFP. Due to the infection of the colon, GI hesitated to do colonoscopy. Patient GI bleeding ceased after reversal of the INR. Her hemoglobin was stable at 8.5 for 2 days. After discussed with GI, we will discharge the patient today, she will see Dr. Guzman next week for possible colonoscopy/EGD, she was instructed to hold all the blood thinners until further instruction by GI and PCP, was instructed to continue hold all the blood pressure medicine because low blood pressure, she will also continue to take antibiotics and PPI as prescribed. Discharge discussed with: patient Time spent discussing smoking cessation with patient: more than 10 minutes - Time Spent with Patient Total time spent providing and/or coordinating discharge services: Greater than 30 minutes - Discharge Medications Prescriptions: Amoxicillin/Clavulanate [Augmentin] 875 mg PO BIDWM #20 tablet Pantoprazole Sodium [Protonix] 40 mg PO DAILY #60 tablet. Home Medications: Atorvastatin [Lipitor] 40 mg PO HS 03/14/18 [History] Nitroglycerin [Nitrostat] 0.4 mg SL Q5M PRN 03/14/18 [History] Amoxicillin/Clavulanate [Augmentin] 875 mg PO BIDWM #20 tablet 03/17/18 [Rx] Pantoprazole Sodium [Protonix] 40 mg PO DAILY #60 tablet. 03/17/18 [Rx] Allergies/Adverse Reactions: 3 Allergy/AdvReac Type Severity Reaction Status Date / Time acetaminophen [From Percocet] AdvReac Nausea Verified 03/08/18 11:44 Oxycodone [From Percocet] AdvReac Nausea Verified 03/08/18 11:44 Date of admission: 03/14/18 15:12 Primary care physician: Reji Mccray DO Consults: 03/14/18 15:22 Consult to Gastroenterology [CONS] Routine Consulting Provider: Gastroenterology Rukhsana Reason for Consult: GI bleeding Call Completed: Yes 03/14/18 15:28 Consult to Nutrition [CONS] Routine Comment: Consulting Provider: NUTRITION Reason for Dietary Consult: Other Other:: recent weight loss due to loss of appetite 03/14/18 15:33 Consult to Nutrition [CONS] Routine Comment: Consulting Provider: NUTRITION Reason for Dietary Consult: MST Score Anticipated date of discharge: 03/17/18 - Constitutional Vitals: Temp Pulse Resp BP Pulse Ox 97.8 F 64 17 103/71 95 03/17/18 07:34 03/17/18 07:34 03/17/18 07:34 03/17/18 07:34 03/17/18 07:34 General appearance: Present: A&O X 3 Exam: PHYSICAL EXAMINATION: GENERAL APPEARANCE: The patient is alert, oriented and in no acute distress. HEENT: Head is normocephalic. The sinuses are nontender. Pupils are equal and reactive. The nares are patent. Oropharynx clear without lesions. NECK: Supple without lymphadenopathy. HEART: Regular rate and rhythm. LUNGS: No crackles or wheezes are heard. ABDOMEN: Soft, nontender, nondistended with good bowel sounds heard. Inguinal area is normal. EXTREMITIES: Without cyanosis, clubbing or edema. NEUROLOGICAL: Gross nonfocal. SKIN: Warm and dry without any rash. - Patient Status Disposition: Home, Self-Care Condition: Fair Functional capacity at discharge: independent ambulation Overall status at discharge: patient is progressing back to baseline - Discharge Instructions Follow Up With: Tyron Guzman MD [Partnered Physician] - 03/29/18 10:00 am Jaylen Pugh MD [Partnered Physician] - 06/28/18 8:15 am Reji Mccray DO [Primary Care Provider] - - Diet and Activity Activity: increase activity as tolerated Diet: advance to your usual diet - VTE Documentation of Mechanical Device: Intermittent pneumatic compression device
== END 2018-03-17 13:54 | disposition home or self-care (01) | DRG 378 ==
LOC: EMEROO 10:32 → 2NENU 10:32
PROVIDERS: ADMIT Internal Medicine; ATTEND Internal Medicine

== ENCOUNTER 2018-06-01 03:07 | Observation (INO) ==
--- NOTE | 2018-06-01 03:15 | Emergency Department Note ---
Disposition Clinical Impression: Dyspnea Qualifiers: Dyspnea type: dyspnea on exertion Qualified Code(s): R06.09 - Other forms of dyspnea Acute exacerbation of CHF (congestive heart failure) Qualifiers: Heart failure type: combined systolic and diastolic Qualified Code(s): I50.43 - Acute on chronic combined systolic (congestive) and diastolic (congestive) heart failure Disposition: Admitted As Inpatient Condition: Fair Referrals: Reji Mccray DO [Primary Care Provider] - Forms: ED Satisfaction Letter Time of Disposition: 04:57 SOB HPI - General Chief Complaint: ED Shortness of Breath/Dyspnea Stated Complaint: SOB Time Seen by Provider: 06/01/18 03:12 Nursing Notes Reviewed: Yes Vital Signs Reviewed: Yes - History of Present Illness 87yo female presents from home for evaluation of dyspnea. Onset tonight when she went to bed. Worse when laying supine. Slightly improved when sitting upright. She has an associated dry cough. Patient was evaluated at urgent care today for right shoulder pain where right shoulder x-ray showed suspicious pulmonary findings with recommendation for dedicated two-view chest x-ray. Patient states she feels like she simply cannot catch her breath. PMH: CAD with CT x2 with stent, PM/Defib implanted, A. Fib on coumadin, TIA, HTN, HLD, CKD stage 2, GERD on PPI Hx BL carotid endarectomy Hx GI bleed Mar 2018. Antiplatelet: Plavix Anticoagulant: coumadin. NOTE: re-started 05/18 after 3 day hold for endoscopy. ROS: Positive: As above Negative: Fever, chills, nausea, vomiting, chest pain, palpitations, unusual back pain, abdominal pain, lower extremity pain or swelling. No melena or hematochezia. - Related Data Home Medications Medication Instructions Recorded Confirmed Atorvastatin [Lipitor] 40 mg PO HS 03/14/18 03/14/18 Nitroglycerin [Nitrostat] 0.4 mg SL Q5M PRN 03/14/18 03/14/18 Previous Rx's Medication Instructions Recorded Amoxicillin/Clavulanate [Augmentin] 875 mg PO BIDWM #20 tablet 03/17/18 Pantoprazole Sodium [Protonix] 40 mg PO DAILY #60 tablet. 03/17/18 Allergies Allergy/AdvReac Type Severity Reaction Status Date / Time acetaminophen [From Percocet] AdvReac Nausea Verified 06/01/18 03:09 Oxycodone [From Percocet] AdvReac Nausea Verified 06/01/18 03:09 All systems ED: reviewed and negative except as stated. Review of Systems: As Per HPI Past Medical History - Past Medical History Medical history: Reports: arthritis, coronary artery disease, dementia, GERD, hyperlipidemia, hypertension, myocardial infarction, TIA, other Surgical history: Reports: angioplasty/stent, hip replacement, hysterectomy, knee replacement, other, AICD, pacemaker Psychiatric history: Reports: depression - Social History Smoking Status: Never smoker Smokeless Tobacco Status: No Alcohol use: Reports: none Drug use: Reports: none Physical Exam Vital Signs Reviewed General: Patient is alert, oriented, and in mild respiratory distress-she is tachypneic and has 3 word conversational dyspnea which improved throughout my interview with her. Head: atraumatic, normocephalic Eye: normal appearance, PERRL, EOMI, no scleral icterus, no conjunctival injection ENT: mucous membranes moist, normal external ear exam Neck: normal inspection, trachea midline, full ROM Chest: normal inspection, symmetric chest rise Respiratory: Good respiratory effort. Bilateral breath sounds are clear without wheezing, crackles, or rhonchi. Cardiovascular: Regular rate and rhythm. No clicks, rubs, gallops, or murmors. Normal heart sounds. No pedal edema. Abdomen: Bowel sounds present normoactive x-4 quadrants. Abdomen is soft, nondistended, and nontender. No guarding or rebound. Musculoskeletal: Spontaneously moving all extremities. Skin: warm, dry, intact. Neuro: Alert and oriented x4. Sensation light touch intact. Psych: Patient's affect is appropriate for situation. Course Course Narrative: Cardiac echo September 2017: EV/EV echocardiogram Impressions: LVEF 20-25%. Mildly dilated left ventricle. Severe segmental left ventricular systolic dysfunction. Mild left ventricular diastolic dysfunction. Normal right ventricular structure and function. Mild aortic regurgitation. Low-flow, low-gradient aortic stenosis. Mean gradient 13 mmHg. Valve area 1.1 cm2. Mild mitral regurgitation. No evidence of pulmonary hypertension. Given patient's history of Coumadin which was temporarily stopped 2 weeks ago, will d-dimer using age-adjusted cut off criteria. We will also check basic blood work and a dedicated two-view chest x-ray. Patient denies, or hematochezia. Patient's hemoglobin, though low in the nines, is above her baseline. D-dimer is below the age-adjusted cut off of 860. Serum chemistry is unremarkable. Normal renal function. Troponin below upper limit of normal. Chest x-ray shows pulmonary edema. Patient reevaluated. She continues to be slightly tachypneic. States that she feels like she needes to breathe fast to catch her breath. She continued to have 3-4 word conversational dyspnea. Clinically concerned that, if not treated properly, or tachypnea will not improve and she will eventually tire out. She is agreeable to admission for continued evaluation of her acute exacerbation of congestive heart failure. 40 mg Lasix IV provider. I discussed the above with the admitting hospitalist, Dr. Kirkland, who agrees to accept the patient for continued evaluation and management of her acute exacerbation of CHF. EKG dated 06/01/2018 at 03:21 interpreted as ventricularly paced with a rate of 80. Spikes preceding each QRS. Chest X-Ray 06/01/18 03:31 IMPRESSION: Cardiomegaly with trace left pleural effusion mild interstitial pulmonary edema suggesting mild CHF. D/ / Kenn Hart MD / Kenn Hart MD Interpreting Provider: Kenn Hart MD Vital Signs Temperature 97.4 F L 06/01/18 03:10 Pulse Rate 76 06/01/18 03:10 Respiratory Rate 18 06/01/18 03:10 Blood Pressure 143/82 06/01/18 03:10 O2 Sat by Pulse Oximetry 96 06/01/18 03:10 Temperature 97.4 F L 06/01/18 03:10 Pulse Rate 72 06/01/18 04:54 Respiratory Rate 20 06/01/18 04:54 Blood Pressure 140/97 06/01/18 04:54 O2 Sat by Pulse Oximetry 96 06/01/18 04:54 Oxygen Delivery Oxygen Delivery Room Air Shortness of Breath/Dyspnea - Lab Data Result diagrams: 06/01/18 03:56 06/01/18 03:56 Lab Results 06/01/18 06/01/18 06/01/18 Range/Units 03:56 03:56 03:56 WBC 5.8 (4.3-11.1) K/mcL RBC 3.48 L (3.82-4.97) M/mcL Hgb 9.2 L (11.5-15.4) g/dL Hct 29.3 L (35.3-44.9) % MCV 84.2 (83.0-100.0) fL MCH 26.4 L (28.0-33.3) pg MCHC 31.4 L (31.6-35.5) g/dL RDW 15.9 H (11.5-14.5) % Plt Count 237 (140-400) K/mcL MPV 10.7 (9.4-12.4) fL Immature Gran % 0.3 (0-4) % Seg Neutrophils % 64.5 % Lymphocytes % 22.6 % Monocytes % 9.9 % Eosinophils % 1.7 % Basophils % 1.0 % Neutrophils # 3.8 (1.6-8.9) K/mcL Lymphocytes # 1.3 (0.6-4.6) K/mcL Monocytes # 0.6 (0.0-1.3) K/mcL Eosinophils # 0.1 (0.0-0.6) K/mcL Basophils # 0.1 (0.0-0.2) K/mcL D-Dimer 507 H (0-500) ng/mLFEU Sodium 141 (136-145) mEq/L Potassium 3.8 (3.5-5.1) mEq/L Chloride 109 H (98-107) mEq/L Carbon Dioxide 25 (23-29) mEq/L BUN 21 (8-23) mg/dL Creatinine 1.02 (0.60-1.20) mg/dL Est GFR ( Amer) > 60 (> 60) Est GFR (Non-Af Amer) 51 L (> 60) BUN/Creatinine Ratio 21 (6-26) Glucose 146 H (70-105) mg/dL Calculated Osmolality 298 (280-300) Calcium 9.1 (8.6-10.3) mg/dL Troponin I 0.03 (< 0.04) ng/mL
[2018-06-01 04:13] LABS: Basophils # 0.1 K/mcL (0.0-0.2); Eosinophils # 0.1 K/mcL (0.0-0.6); Eosinophils % 1.7 %; Hematocrit 29.3 % (35.3-44.9); Hemoglobin 9.2 g/dL (11.5-15.4); Immature Granulocytes % 0.3 % (0-4); Lymphocytes # 1.3 K/mcL (0.6-4.6); Lymphocytes % 22.6 %; Mean Corpuscular HGB Conc 31.4 g/dL (31.6-35.5); Mean Corpuscular Hemoglobin 26.4 pg (28.0-33.3); Mean Corpuscular Volume 84.2 fL (83.0-100.0); Mean Platelet Volume 10.7 fL (9.4-12.4); Monocytes # 0.6 K/mcL (0.0-1.3); Monocytes % 9.9 %; Neutrophils # 3.8 K/mcL (1.6-8.9); Platelet Count 237 K/mcL (140-400); Red Blood Count 3.48 M/mcL (3.82-4.97); Red Cell Distribution Width 15.9 % (11.5-14.5); Segmented Neutrophils % 64.5 %
[2018-06-01 04:33] LABS: BUN/Creatinine Ratio 21 (6-26); Blood Urea Nitrogen 21 mg/dL (8-23); Calcium 9.1 mg/dL (8.6-10.3); Carbon Dioxide 25 mEq/L (23-29); Chloride 109 mEq/L (98-107); Glucose 146 mg/dL (70-105); Osmolality,Calculated 298 (280-300); Potassium 3.8 mEq/L (3.5-5.1); Sodium 141 mEq/L (136-145); Troponin I 0.03 ng/mL (< 0.04); eGFR For Non-African Americans 51 (> 60)
[2018-06-01] MEDS ORDERED: Furosemide 40 MG/4 ML VIAL IVP ONE (04:54)
--- NOTE | 2018-06-01 05:34 | Emergency Department Note ---
Disposition Clinical Impression: Dyspnea Qualifiers: Dyspnea type: dyspnea on exertion Qualified Code(s): R06.09 - Other forms of dyspnea Acute exacerbation of CHF (congestive heart failure) Qualifiers: Heart failure type: combined systolic and diastolic Qualified Code(s): I50.43 - Acute on chronic combined systolic (congestive) and diastolic (congestive) heart failure Disposition: Admitted As Inpatient Condition: Fair General Adult HPI - General Chief complaint: ED Shortness of Breath/Dyspnea Stated complaint: SOB Time Seen by Provider: 06/01/18 03:12 Source: patient, family Limitations: no limitations Nursing Notes Reviewed: Yes Vital Signs Reviewed: Yes - History of Present Illness Pain Scale: 0 - Related Data Home Medications Medication Instructions Recorded Confirmed Atorvastatin [Lipitor] 40 mg PO HS 03/14/18 03/14/18 Nitroglycerin [Nitrostat] 0.4 mg SL Q5M PRN 03/14/18 03/14/18 Previous Rx's Medication Instructions Recorded Amoxicillin/Clavulanate [Augmentin] 875 mg PO BIDWM #20 tablet 03/17/18 Pantoprazole Sodium [Protonix] 40 mg PO DAILY #60 tablet. 03/17/18 Allergies Allergy/AdvReac Type Severity Reaction Status Date / Time acetaminophen [From Percocet] AdvReac Nausea Verified 06/01/18 03:09 Oxycodone [From Percocet] AdvReac Nausea Verified 06/01/18 03:09 Past Medical History - Past Medical History Medical history: Reports: arthritis, coronary artery disease, dementia, GERD, hyperlipidemia, hypertension, myocardial infarction, TIA, other Surgical history: Reports: angioplasty/stent, hip replacement, hysterectomy, knee replacement, other, AICD, pacemaker Psychiatric history: Reports: depression - Social History Smoking Status: Never smoker Smokeless Tobacco Status: No Alcohol use: Reports: none Drug use: Reports: none Physical Exam - General Limitations: no limitations General appearance: alert Course Vital Signs Temperature 97.4 F L 06/01/18 03:10 Pulse Rate 76 06/01/18 03:10 Respiratory Rate 18 06/01/18 03:10 Blood Pressure 143/82 06/01/18 03:10 O2 Sat by Pulse Oximetry 96 06/01/18 03:10 Temperature 97.4 F L 06/01/18 03:10 Pulse Rate 72 06/01/18 04:54 Respiratory Rate 20 06/01/18 04:54 Blood Pressure 140/97 06/01/18 04:54 O2 Sat by Pulse Oximetry 96 06/01/18 04:54 Oxygen Delivery Oxygen Delivery Room Air Medical Decision Making - Medical Records Medical records reviewed: Yes I reviewed the patient's medical records. - Lab Data Lab results reviewed: Yes I reviewed the patient's lab results. Result diagrams: 06/01/18 03:56 06/01/18 03:56 Lab Results 06/01/18 06/01/18 06/01/18 Range/Units 03:56 03:56 03:56 WBC 5.8 (4.3-11.1) K/mcL RBC 3.48 L (3.82-4.97) M/mcL Hgb 9.2 L (11.5-15.4) g/dL Hct 29.3 L (35.3-44.9) % MCV 84.2 (83.0-100.0) fL MCH 26.4 L (28.0-33.3) pg MCHC 31.4 L (31.6-35.5) g/dL RDW 15.9 H (11.5-14.5) % Plt Count 237 (140-400) K/mcL MPV 10.7 (9.4-12.4) fL Immature Gran % 0.3 (0-4) % Seg Neutrophils % 64.5 % Lymphocytes % 22.6 % Monocytes % 9.9 % Eosinophils % 1.7 % Basophils % 1.0 % Neutrophils # 3.8 (1.6-8.9) K/mcL Lymphocytes # 1.3 (0.6-4.6) K/mcL Monocytes # 0.6 (0.0-1.3) K/mcL Eosinophils # 0.1 (0.0-0.6) K/mcL Basophils # 0.1 (0.0-0.2) K/mcL D-Dimer 507 H (0-500) ng/mLFEU Sodium 141 (136-145) mEq/L Potassium 3.8 (3.5-5.1) mEq/L Chloride 109 H (98-107) mEq/L Carbon Dioxide 25 (23-29) mEq/L BUN 21 (8-23) mg/dL Creatinine 1.02 (0.60-1.20) mg/dL Est GFR ( Amer) > 60 (> 60) Est GFR (Non-Af Amer) 51 L (> 60) BUN/Creatinine Ratio 21 (6-26) Glucose 146 H (70-105) mg/dL Calculated Osmolality 298 (280-300) Calcium 9.1 (8.6-10.3) mg/dL Troponin I 0.03 (< 0.04) ng/mL B-Natriuretic Peptide (Less than 100) pg/mL 06/01/18 Range/Units 03:56 WBC (4.3-11.1) K/mcL RBC (3.82-4.97) M/mcL Hgb (11.5-15.4) g/dL Hct (35.3-44.9) % MCV (83.0-100.0) fL MCH (28.0-33.3) pg MCHC (31.6-35.5) g/dL RDW (11.5-14.5) % Plt Count (140-400) K/mcL MPV (9.4-12.4) fL Immature Gran % (0-4) % Seg Neutrophils % % Lymphocytes % % Monocytes % % Eosinophils % % Basophils % % Neutrophils # (1.6-8.9) K/mcL Lymphocytes # (0.6-4.6) K/mcL Monocytes # (0.0-1.3) K/mcL Eosinophils # (0.0-0.6) K/mcL Basophils # (0.0-0.2) K/mcL D-Dimer (0-500) ng/mLFEU Sodium (136-145) mEq/L Potassium (3.5-5.1) mEq/L Chloride (98-107) mEq/L Carbon Dioxide (23-29) mEq/L BUN (8-23) mg/dL Creatinine (0.60-1.20) mg/dL Est GFR ( Amer) (> 60) Est GFR (Non-Af Amer) (> 60) BUN/Creatinine Ratio (6-26) Glucose (70-105) mg/dL Calculated Osmolality (280-300) Calcium (8.6-10.3) mg/dL Troponin I (< 0.04) ng/mL B-Natriuretic Peptide 2657 H (Less than 100) pg/mL - Radiology Data Radiology results reviewed: Yes I reviewed the patient's radiology results. Chest X-Ray 06/01/18 03:31 IMPRESSION: Cardiomegaly with trace left pleural effusion mild interstitial pulmonary edema suggesting mild CHF. D/ / Kenn Hart MD / Kenn Hart MD Interpreting Provider: Kenn Hart MD - EKG Data EKG #1 EKG attestation: Yes I reviewed and interpreted this EKG. EKG results narrative: EKG shows an electronic ventricular pacemaker with totally paced rhythm with ventricular rate of 80. Critical Care Time Critical Care Time: Yes Total Critical Care Time: 35 Attestation: Critical care performed: Time is exclusive of separately billable procedures. Time includes: direct patient care, patient reassessment, coordination of patient care, interpretation of data (laboratory data, radiology data, and respiratory data), review of patient's medical records, medical consultation and documentation of patient care. Procedures included in critical care time: Procedures excluded from critical care time: Attestation Statement - Attestation Attestation: I, Wilmer Tovar MD, personally evaluated this patient and discussed their management with the resident physician. I reviewed the resident's note and agree with the documented findings, medical decision making, and plan of care. 87-year-old female presents to the emergency department with a complaint of shortness of breath which started this evening when she went to bed. No history of breathing problems. She does not use home oxygen. No chest pain. There has been a mild cough this evening with no sputum production. Patient is on Coumadin. She has a history of atrial fibrillation. She also has a pacemaker defibrillator. She did have a colonoscopy a few weeks ago and held her Coumadin for 3 days for the procedure but has been back on it since 05/18. On examination patient is a well-developed well-nourished well-appearing elderly female in no acute distress. She is alert and oriented 3. There is no cyanosis or diaphoresis. Patient is mildly dyspneic with conversation. Breath sounds are decreased bilaterally with a few faint dry crackles in the bases bilaterally. No wheezes. Heart regular rate and rhythm. Abdomen is soft and nontender with normal bowel sounds. Labs reviewed. Chest x-ray shows interstitial pulmonary edema. EKG shows a paced rhythm. Patient received Lasix 40 mg IV. The hospitalist, Dr. Kirkland, was consulted and accepted admission of the patient.
--- NOTE | 2018-06-01 05:51 | Internal Med History&Physical ---
Date of Encounter: 06/01/18 Time of Encounter: 05:49 Internal Medicine - H&P: HPI Chief complaint: Shortness of breath Admitted From: Home Plans for Post Hospital Care: Home History of present illness: Moerlia Houston is an 87-year-old woman with a history of hypertension, hyperlipidemia, coronary artery disease, atrial fibrillation on warfarin with recent GI bleed and congestive heart failure s/p BiV AICD who is brought into the emergency room with a complaint of shortness of breath. She states that ov er the last few days she has been having increasing dyspnea with mild to moderate exertion and a reduction in her exercise tolerance. Today she went to an urgent care center where she had a left shoulder x-ray done due to pain from tendinitis however incidentally noted some congestion in her lungs and it was recommended that she get a full chest x-ray done. She was unable to do this and went home however tonight when she went to bed she stated that her shortness of breath significantly increased and she was unable to be supine and needed to sit upright to catch her breath and feel better. She does reported he has to medications stating that she is on furosemide twice daily. She denies any increasing pedal edema or abdominal distention. She also denies chest pain, cough, fever and chills. The emergency room she was seen to be rather well-appearing but had increase in her respiratory rate. She remained saturating well on room air. Chest x-ray was done and reviewed independently by me which shows bit more congestion in comparison to her previous more predominantly on the right perihilar region as per my interpretation. Lab work was done which showed no gross anomalies with a hemoglobin of 9.2 which seems to be a bit better than her baseline. D-dimer was 507 which is below her age-adjusted range. Troponin was negative. BNP was added on and seen to be 2657. She was given 40 mg IVP furosemide and is admitted for further observation. Past Med Surg Social Fam HX - Past Medical History Medical history: arthritis, coronary artery disease, dementia, GERD, hyperlipidemia, hypertension, myocardial infarction, TIA, other Additional medical history: MA x2. PVD, dysphagia, cardiac murmur, hiatal hernia, gastritis, carotid stenosis, DDD, neuropathy, PACER/AICD Psychiatric history: depression - Past Surgical History Surgical History: angioplasty/stent, hip replacement, hysterectomy, knee replacement, other, AICD, pacemaker Additional surgical history: shoulder replacement, bilat carotid endarectomy - Social History Smoking Status: Never smoker Smokeless Tobacco Status: No Alcohol use: none Drug use: none - Family History Mother Hx Family Cardiac Disorders: Yes Brother Living Status: Hx Family Cardiac Disorders: Yes Father Living Status: Hx Family Cardiac Disorders: Yes (angina) Internal Medicine - H&P: Meds Atorvastatin [Lipitor] 40 mg PO HS 03/14/18 [History] Nitroglycerin [Nitrostat] 0.4 mg SL Q5M PRN 03/14/18 [History] Amoxicillin/Clavulanate [Augmentin] 875 mg PO BIDWM #20 tablet 03/17/18 [Rx] Pantoprazole Sodium [Protonix] 40 mg PO DAILY #60 tablet. 03/17/18 [Rx] Allergy/AdvReac Type Severity Reaction Status Date / Time acetaminophen [From Percocet] AdvReac Nausea Verified 06/01/18 03:09 Oxycodone [From Percocet] AdvReac Nausea Verified 06/01/18 03:09 All Systems PM: A 10-system review of systems was performed and is negative for pertinent findi ngs except as documented above in the HPI. - Constitutional Vitals: Temp Pulse Resp BP Pulse Ox 97.4 F L 72 20 140/97 96 06/01/18 03:10 06/01/18 04:54 06/01/18 04:54 06/01/18 04:54 06/01/18 04:54 Exam: Vitals: Reviewed General: Well-appearing and in no acute distress. Skin: Warm and supple. HEENT: Moist mucous membranes. Mild conjunctivae pallor. Neck: No lymphadenopathy. No JVD. No carotid bruits. No palpable thyroid. Chest: Normal thoracic expansion. Fine rales in both lung bases. Heart: Irregular; grade 4/6 systolic murmur noted at the apex. Abdomen: Non-distended, soft and non-tender to palpation. Extremities: No clubbing, cyanosis or edema. No calf tenderness. Normal distal pulses. Left arm placed in a sling. Neurological: Awake, alert and oriented to person, place and time. No focal deficits. Psych: Affect appropriate. Internal Med - H&P Results - Labs CBC & Chem 7: 06/01/18 03:56 06/01/18 03:56 Labs: Short CBC 06/01/18 Range/Units 03:56 WBC 5.8 (4.3-11.1) K/mcL Hgb 9.2 L (11.5-15.4) g/dL Hct 29.3 L (35.3-44.9) % Plt Count 237 (140-400) K/mcL Neutrophils # 3.8 (1.6-8.9) K/mcL BMP 06/01/18 03:56 Sodium 141 Potassium 3.8 Chloride 109 H Carbon Dioxide 25 BUN 21 Creatinine 1.02 Glucose 146 H Calcium 9.1 Cardiac Enzymes 06/01/18 Range/Units 03:56 Troponin I 0.03 (< 0.04) ng/mL - Impressions ITS Impressions Chest X-Ray 06/01/18 03:31 IMPRESSION: Cardiomegaly with trace left pleural effusion mild interstitial pulmonary edema suggesting mild CHF. D/ / Kenn Hart MD / Kenn Hart MD Interpreting Provider: Kenn Hart MD - Assessment and plan (1) Acute exacerbation of CHF (congestive heart failure) Current Visit: Yes Status: Acute Assessment and plan: The patient has increasing dyspnea on mild to moderate exertion with a reduction in exercise tolerance and intolerance to supine decubitus, crackles on exam, congestion on x-ray combined with a significantly elevated BNP. These findings are consistent with an acute exacerbation of congestive heart failure. She has no flu-like symptoms or signs of pneumonia, arrhythmia, ischemic ekg changes or troponin elevation which would all be possible triggers. She has received 40mg push and will continue with 20mg BID to continue this evening. Obtain a TTE to re-assess heart function. Strict I/Os. Resume home meds. Qualifiers: Heart failure type: systolic Qualified Code(s): I50.23 - Acute on chronic systolic (congestive) heart failure (2) Anemia Current Visit: Yes Status: Acute Assessment and plan: Likely secondary to a mix of iron deficiency and recent blood loss from GI bleed. Will send ferritin and iron profile. Start FeSO4 supplementation. Qualifiers: Anemia type: unspecified type Qualified Code(s): D64.9 - Anemia, unspecified (3) Atrial fibrillation Current Visit: Yes Status: Chronic Assessment and plan: Rate controlled. On warfarin to be dosed by pharmacy. Obtain coags now. Qualifiers: Atrial fibrillation type: paroxysmal Qualified Code(s): I48.0 - Paroxysmal atrial fibrillation (4) CAD (coronary artery disease) Current Visit: Yes Status: Chronic Assessment and plan: On antiplatelet therapy. Troponin/EKG negative. Will remain on director of cardiac cath lab. Qualifiers: Coronary Disease-Associated Artery/Lesion type: [place] artery [place] vs. transplanted heart: [place] heart Associated angina: with unstable angina Qualified Code(s): I25.110 - Atherosclerotic heart disease of [place] coronary artery with unstable angina pectoris (5) Hyperlipemia Current Visit: Yes Status: Chronic Assessment and plan: Continue statin therapy. Qualifiers: Hyperlipidemia type: unspecified Qualified Code(s): E78.5 - Hyperlipidemia, unspecified (6) Hypertension Current Visit: Yes Status: Chronic Assessment and plan: On HCTZ and ARB. Qualifiers: Hypertension type: essential hypertension Qualified Code(s): I10 - Essential (primary) hypertension (7) DVT prophylaxis Current Visit: Yes Status: Acute Assessment and plan: On warfarin. - Time Spent With Patient Total time spent is greater than 50% in coordination of care (as documented) at patient's floor/unit and/or counseling patient: Greater than 35 minutes
[2018-06-01 05:58] LABS: INR 3.5; Prothrombin Time 39.2 Seconds (9.4-12.1)
[2018-06-01 06:01] LABS: Activated Partial Thrombo Time 41.9 Seconds (26.0-36.0)
[2018-06-01 06:15] LABS: % Iron Saturation 7 % (15-50); Iron 25 mcg/dL (50-170); Transferrin 272 mg/dL (203-362)
[2018-06-01 06:40] LABS: Ferritin 22 ng/mL (10-120)
[2018-06-01] MEDS ORDERED: Furosemide 20 MG/2 ML VIAL IVP SCH ×2 (08:00→18:00)
[2018-06-01] MEDS: Diltiazem CD (24hr) 240 MG CAPSULE PO SCH (08:42)
[2018-06-01] MEDS: Isosorbide MONOnitrate (24 HR) 60 MG TAB.ER.24H PO SCH (08:43)
[2018-06-01] MEDS: hydroCHLOROthiazide 25 MG TABLET PO SCH (08:43)
[2018-06-01] MEDS ORDERED: Furosemide 20 MG/2 ML VIAL IVP ONE (13:07)
[2018-06-01] MEDS: Furosemide 20 MG/2 ML VIAL IVP SCH (16:53)
--- NOTE | 2018-06-01 17:40 | Event Note ---
Date of Encounter: 06/01/18 Time of Encounter: 11:00 Patient seen by nocturnalist earlier this morning and also by myself. Patient is an 87-year-old female with past medical history significant for ischemic cardiomyopathy, and pacemaker/AICD placement who presented with shortness of breath. Patient found to have elevated BNP of 2657 with mild vascular congestion on chest x-ray. Continue IV diuresis
[2018-06-01] MEDS ORDERED: Warfarin perPT PO PRN (18:00)
[2018-06-01] MEDS ORDERED: Ibuprofen 400 MG TABLET PO PRN (18:45)
[2018-06-01] MEDS ORDERED: Perflutren Lipid Microsphere 1.3 ML in 0.9 % Sodium Chloride 8.7 ML IVP ONE (20:36)
[2018-06-01] MEDS ORDERED: Acetaminophen 325 MG TABLET PO ONE (20:38)
[2018-06-02 05:21] LABS: INR 3.1; Prothrombin Time 34.5 Seconds (9.4-12.1)
[2018-06-02] MEDS: hydroCHLOROthiazide 25 MG TABLET PO SCH (09:39)
[2018-06-02] MEDS: Diltiazem CD (24hr) 240 MG CAPSULE PO SCH (09:39)
[2018-06-02] MEDS: Isosorbide MONOnitrate (24 HR) 60 MG TAB.ER.24H PO SCH (09:39)
[2018-06-02] MEDS: Furosemide 20 MG/2 ML VIAL IVP SCH ×2 (09:40→16:28)
--- NOTE | 2018-06-02 10:29 | Internal Med Progress Note ---
Hospitalist Progress Note - Encounter Date of Encounter: 06/02/18 Time of Encounter: 11:00 - Subjective Interval History: Patient reports a feeling better this a.m. with improvement in shortness of breath Cardiology consulted due to worsening echocardiogram findings - Exam Vitals: Temp Pulse Resp BP Pulse Ox 97.6 F 64 16 114/69 97 06/02/18 07:33 06/02/18 07:33 06/02/18 07:33 06/02/18 07:33 06/02/18 09:32 Exam: Gen.: Nonacute distress, alert and oriented 3 ENT: Mucosal membranes moist Respiratory: Lungs are clear to auscultation bilaterally without any wheezing rhonchi or rales Cardiovascular: Systolic murmur Abdomen: Soft, nontender and nondistended with positive bowel sounds Extremities: No lower extremity edema Skin: Normal color - Assessment and Plan (1) Acute exacerbation of CHF (congestive heart failure) Current Visit: Yes Status: Acute Assessment and Plan: Patient with elevated BNP on admission at 2657 with chest x-ray showing vascular congestion Echocardiogram showed a LVEF of 25% with severe global left ventricular systolic dysfunction in addition to moderate left ventricular diastolic dysfunction and mild right ventricular hypokinesis; also noted was moderate to severe aortic stenosis Will continue IV diuresis with Lasix 40 mg twice daily Cardiology consulted and appreciate recommendations (2) CAD (coronary artery disease) Current Visit: Yes Status: Chronic Assessment and Plan: Stable; continue antiplatelet therapy. Troponin/EKG negative. 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 (3) Hypertension Current Visit: Yes Status: Chronic Assessment and Plan: On HCTZ and ARB. (4) Hyperlipemia Current Visit: Yes Status: Chronic Assessment and Plan: Continue statin therapy. (5) Atrial fibrillation Current Visit: Yes Status: Chronic Assessment and Plan: Rate controlled. On warfarin to be dosed by pharmacy. (6) Anemia Current Visit: Yes Status: Acute Assessment and Plan: Likely secondary to a mix of iron deficiency and recent blood loss from GI bleed. Continue FeSO4 supplementation. (7) DVT prophylaxis Current Visit: Yes Status: Acute Assessment and Plan: On warfarin. - Time Spent with Patient Total time spent is greater than 50% in coordination of care (as documented) at patient's floor/unit and/or counseling patient: Internal Medicine: Result - Labs CBC & Chem 7: 06/01/18 03:56 06/01/18 03:56 - ABG Interpretation ABG results: PT/INR, D-dimer PT 34.5 Seconds (9.4-12.1) H 06/02/18 04:43 D-Dimer 507 ng/mLFEU (0-500) H 06/01/18 03:56 - Impressions Impressions Echocardiogram 06/01/18 05:28 Impressions: LVEF 25%. Severe global left ventricular systolic dysfunction. Moderate left ventricular diastolic dysfunction. Mildly dilated left ventricle. Moderately dilated left atrium. Mild right ventricular hypokinesis. Moderate-severe aortic stenosis. Moderate aortic regurgitation. Mild-moderate mitral regurgitation. Moderate tricuspid regurgitation. Consult Discharge Plan - Plan Referrals: Reji Mccray DO [Primary Care Provider] - (1) Acute exacerbation of CHF (congestive heart failure) Qualifiers: Heart failure type: systolic Qualified Code(s): I50.23 - Acute on chronic systolic (congestive) heart failure (2) CAD (coronary artery disease) Qualifiers: Coronary Disease-Associated Artery/Lesion type: [place] artery [place] vs. transplanted heart: [place] heart Associated angina: with unstable angina Qualified Code(s): I25.110 - Atherosclerotic heart disease of [place] coronary artery with unstable angina pectoris (3) Hypertension Qualifiers: Hypertension type: essential hypertension Qualified Code(s): I10 - Essential (primary) hypertension (4) Hyperlipemia Qualifiers: Hyperlipidemia type: unspecified Qualified Code(s): E78.5 - Hyperlipidemia, unspecified (5) Atrial fibrillation Qualifiers: Atrial fibrillation type: paroxysmal Qualified Code(s): I48.0 - Paroxysmal atrial fibrillation (6) Anemia Qualifiers: Anemia type: unspecified type Qualified Code(s): D64.9 - Anemia, unspecified
[2018-06-02] MEDS ORDERED: Acetaminophen 325 MG TABLET PO PRN (15:46)
[2018-06-02] MEDS ORDERED: *HR* Warfarin 4 MG TABLET PO ONE (18:00)
--- NOTE | 2018-06-02 19:22 | Cardiology Consult Note ---
Addendum entered and electronically signed by Cam Tamez MD 06/02/18 16:11: Additionally has severe multivessel CAD of the LAD and RCA with heavy calcification that would need atherectomy/PCI. She/CT surgery mutually declined for CABG. Drop in EF likely represents worsening ischemic cardiomyopathy possibly with contribution from aortic stenosis. If she continues to be symptomatic, would need referral for very high risk intervention. Addendum entered and electronically signed by Cam Tamez MD 06/02/18 15:30: I examined this patient and my medical decision-making was reviewed with the Resident Physician. I agree with the documented findings, disposition and treatment plan as described except to the extent set forth below. A/P: Advanced age Severe systolic CHF sp BiV ICD At least moderate , with gradient likely underestimated Moderate AI Recommend discontinuing HCTZ and starting lasix. Titrate to diuresis and negative output with close monitoring of BMP. Will accept mild bump in renal function for patient symptoms to improve. Aortic stenosis workup would be done as an outpatient if patient elects to pursue possible TAVR (or unlikely, SAVR). Appears to be a suboptimal candidate for SAVR if severe is proven with outpatient stress dobutamine echo to assess for prescence of low output low gradient true severe . Thank you for the consult, Cam Tamez MD [facility] Original Note: Date of Encounter: 06/02/18 Time of Encounter: 14:12 Assessment and Plan (1) Acute exacerbation of CHF (congestive heart failure) Current Visit: Yes Status: Acute Patient reports SOB improving. Reviewed medications and will d/c diltiazem and replace with 75mg toprolol. Continue lasix. Cardiology will follow up with her tomorrow. Qualifiers: Heart failure type: systolic Qualified Code(s): I50.23 - Acute on chronic systolic (congestive) heart failure Discussion w patient/family: The assessment and plan as outlined above was discussed with the patient and/or family members who expressed understanding and agreement. All questions were answered. Thank you for involving us in the care of your patient. Please call with any questions. History of Present Illness Consult date: 06/02/18 Consult reason: SOB with CHF Chief complaint: SOB History of present illness: Ms. Houston is a 87 year old female being consulted for SOB with history of CHF s/p biventricular AICD. Patient started having SOB 2 days ago, symptoms worsening, patient reports needing to sleep upright (baseline needs 2 pillows). Tropoinins are negative, BNP 2657, CXR done at ED shows pumonary edema and baseline cardiomegaly. Echo done last night showed 25% EF. She is being marine IV lasixs for diuresis. Patient of Dr. Jaylen Pugh. Past Med Surg Social Fam HX - Past Medical History Medical history: arthritis, coronary artery disease, dementia, GERD, hyperlipidemia, hypertension, myocardial infarction, TIA, other Additional medical history: NH x2. PVD, dysphagia, cardiac murmur, hiatal hernia, gastritis, carotid stenosis, DDD, neuropathy, PACER/AICD Psychiatric history: depression - Past Surgical History Surgical History: angioplasty/stent, hip replacement, hysterectomy, knee replacement, other, AICD, pacemaker Additional surgical history: shoulder replacement, bilat carotid endarectomy - Social History Smoking Status: Never smoker Smokeless Tobacco Status: No Alcohol use: none Drug use: none - Family History Mother Hx Family Cardiac Disorders: Yes Brother Living Status: Hx Family Cardiac Disorders: Yes Father Living Status: Age at : 57 Hx Family Cardiac Disorders: Yes Medications and Allergies Atorvastatin [Lipitor] 40 mg PO HS 03/14/18 [History] Nitroglycerin [Nitrostat] 0.4 mg SL Q5M PRN 03/14/18 [History] Pantoprazole Sodium [Protonix] 40 mg PO DAILY #60 tablet. 03/17/18 [Rx] Clopidogrel [Plavix] 75 mg PO DAILY 06/01/18 [History] Furosemide [Lasix] 40 mg PO BID 06/01/18 [History] Warfarin Sodium 4 mg PO DAILY 06/01/18 [History] Allergy/AdvReac Type Severity Reaction Status Date / Time acetaminophen [From Percocet] AdvReac Nausea Verified 06/01/18 03:09 Oxycodone [From Percocet] AdvReac Nausea Verified 06/01/18 03:09 All Systems Review: The remainder of the systems were reviewed and are negative - Constitutional Constitutional: no chills, no fever(s), no malaise, no night sweats - Cardiovascular Cardiovascular: as per HPI - Respiratory Respiratory: dyspnea, no cough, no hemoptysis Physical Examination Vital Signs, Last 4 Hours Temp Pulse Resp BP Pulse Ox 06/02/18 11:13 97.4 F L 70 16 91/56 99 General: Conversant, No Apparent Distress HEENT: Atraumatic Neck: Other (mild JVD noted) Cardiac: Normal S1 and S2, Other (murmur appreciated from aortic, mitral, and tricuspid valves) Lungs: Other (rales in lower lung bases) Abdomen: Soft, Non-Tender Skin: No rashes noted on visualized skin Extremities: No Cyanosis, No Edema, Normal Pulses Results 06/01/18 03:56 06/01/18 03:56 Lab Results 06/02/18 04:43 INR 3.1 Consult Discharge Plan - Plan Referrals: Reji Mccray DO [Primary Care Provider] -
[2018-06-03 05:30] LABS: INR 2.4; Prothrombin Time 27.1 Seconds (9.4-12.1)
[2018-06-03] MEDS: Isosorbide MONOnitrate (24 HR) 60 MG TAB.ER.24H PO SCH (08:52)
[2018-06-03] MEDS ORDERED: Metoprolol XL (24 HR) Succ 50 MG TAB.ER.24H PO SCH (09:00)
[2018-06-03] MEDS: Furosemide 20 MG/2 ML VIAL IVP SCH (09:07)
[2018-06-03 11:51] VITALS: BP 102/67
--- NOTE | 2018-06-03 15:01 | Discharge Summary ---
- NOTES TO OUTPATIENT PROVIDER Notes to Outpatient Provider: Patient to follow-up with asbestos shingle inspector as an outpatient Orders not resulted at time of discharge: Pending orders 06/04/18 04:00 INR/PT [Prothrombin Time INR] [COAG] AM 0400 06/05/18 04:00 INR/PT [Prothrombin Time INR] [COAG] AM 0400 Date of Encounter: 06/03/18 Time of Encounter: 11:00 - Discharge Diagnosis (1) Acute exacerbation of CHF (congestive heart failure) Priority: Primary Status: Acute Qualifiers: Heart failure type: systolic Qualified Code(s): I50.23 - Acute on chronic systolic (congestive) heart failure (2) CAD (coronary artery disease) Priority: Primary Status: Chronic Qualifiers: Coronary Disease-Associated Artery/Lesion type: [place] artery [place] vs. transplanted heart: [place] heart Associated angina: with unstable angina Qualified Code(s): I25.110 - Atherosclerotic heart disease of [place] coronary artery with unstable angina pectoris (3) Hypertension Priority: Secondary Status: Chronic Qualifiers: Hypertension type: essential hypertension Qualified Code(s): I10 - Essential (primary) hypertension (4) Hyperlipemia Priority: Secondary Status: Chronic Qualifiers: Hyperlipidemia type: unspecified Qualified Code(s): E78.5 - Hyperlipidemia, unspecified (5) Atrial fibrillation Priority: Secondary Status: Chronic Qualifiers: Atrial fibrillation type: paroxysmal Qualified Code(s): I48.0 - Paroxysmal atrial fibrillation (6) Anemia Priority: Secondary Status: Acute Qualifiers: Anemia type: unspecified type Qualified Code(s): D64.9 - Anemia, unspecified Hospital course: Patient is a 87-year-old female with past medical history significant for hypertension, hyperlipidemia, coronary artery disease, atrial fibrillation on warfarin with recent GI bleed and congestive heart failure s/p BiV AICD who is brought into the emergency room with a complaint of shortness of breath. Patient admits to increase sodium intake with canned foods but has been taking her medicines as directed. At the urgent care where patient was evaluated for left shoulder tendinitis, she was found to have vascular congestion on chest x-ray and recommended come to the ER for further evaluation. In the ER, patient was found to have a BNP of 2657 and was admitted to the medical surgical floor for acute on chronic combined systolic and diastolic heart failure. During patients hospital stay echocardiogram showed a LVEF of 25% with severe global left ventricular systolic dysfunction in addition to moderate left ventricular diastolic dysfunction and mild right ventricular hypokinesis; also noted was moderate to severe aortic stenosis. Patient shortness of breath improved with IV diuresis. Cardiology was consulted with recommendations to continue current management. Patient was noted to have a prior history of extensive coronary arterial disease in addition to aortic stenosis and to follow-up with established asbestos shingle inspector as outpatient. - Time Spent with Patient Total time spent providing and/or coordinating discharge services: Less than 30 minutes - Discharge Medications Prescriptions: Ferrous Sulfate 325 mg PO TIDWM #90 tablet Isosorbide MONOnitrate (24 HR) [Imdur] 60 mg PO DAILY #30 tab.er.24h Losartan [Cozaar] 100 mg PO DAILY #120 tablet Metoprolol XL (24 HR) Succ [Toprol Xl] 75 mg PO DAILY #45 tab.er.24h Home Medications: Atorvastatin [Lipitor] 40 mg PO HS 03/14/18 [History] Nitroglycerin [Nitrostat] 0.4 mg SL Q5M PRN 03/14/18 [History] Pantoprazole Sodium [Protonix] 40 mg PO DAILY #60 tablet.dr 03/17/18 [Rx] Clopidogrel [Plavix] 75 mg PO DAILY 06/01/18 [History] Furosemide [Lasix] 40 mg PO BID 06/01/18 [History] Warfarin Sodium 4 mg PO DAILY 06/01/18 [History] Ferrous Sulfate 325 mg PO TIDWM #90 tablet 06/03/18 [Rx] Isosorbide MONOnitrate (24 HR) [Imdur] 60 mg PO DAILY #30 tab.er.24h 06/03/18 [Rx] Losartan [Cozaar] 100 mg PO DAILY #120 tablet 06/03/18 [Rx] Metoprolol XL (24 HR) Succ [Toprol Xl] 75 mg PO DAILY #45 tab.er.24h 06/03/18 [Rx] Allergies/Adverse Reactions: Allergy/AdvReac Type Severity Reaction Status Date / Time Oxycodone [From Percocet] AdvReac Nausea Verified 06/01/18 03:09 Date of admission: 06/01/18 05:18 Primary care physician: Reji Mccray DO Consults: 06/02/18 10:30 Consult to Cardiology [CONS] Routine Comment: Consulting Provider: Cardiology Rukhsana Reason for Consult: Acute on chronic systolic and diastolic heart failure Call Completed: Yes - Constitutional Vitals: Temp Pulse Resp BP Pulse Ox 97.7 F 67 17 102/67 95 06/03/18 11:50 06/03/18 11:50 06/03/18 11:50 06/03/18 11:50 06/03/18 11:50 Exam: Gen.: Nonacute distress, alert and oriented 3 ENT: Mucosal membranes moist Respiratory: Lungs are clear to auscultation bilaterally without any wheezing rhonchi or rales Cardiovascular: Systolic murmur Abdomen: Soft, nontender and nondistended with positive bowel sounds Extremities: No lower extremity edema Skin: Normal color - Patient Status Disposition: Home, Self-Care Condition: Fair - Discharge Instructions Instructions: Heart Failure (DC), Atrial Fibrillation (DC), Chronic Hypertension (DC), Dyspnea (GEN), Anemia (GEN), Hyperlipidemia (DC) Follow Up With: Reji Mccray DO [Primary Care Provider] -
--- NOTE | 2018-06-03 22:40 | Electrocardiograph Report ---
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
== END 2018-06-03 15:53 | disposition home or self-care (01) ==
LOC: EMEROOARM 03:07 → 2ANU 03:07 → SUATTDRO 05:18 → 2ANU 05:50
PROVIDERS: ADMIT Internal Medicine; ATTEND Hospitalist

== ENCOUNTER 2020-03-07 12:41 | Inpatient (IN) ==
[2020-03-07] MEDS ORDERED: *HR* Heparin 5,000 UNIT/ML VIAL IVP PRN ×2 (13:03)
[2020-03-07] MEDS ORDERED: *HR* Heparin 5,000 UNIT/ML VIAL IVP ONE (13:03)
[2020-03-07 13:08] LABS: Basophils % 0.4 %; Eosinophils # 0.1 K/mcL (0.0-0.6); Eosinophils % 0.8 %; Hematocrit 37.3 % (35.3-44.9); Hemoglobin 11.9 g/dL (11.5-15.4); Immature Granulocytes % 0.4 % (0-4); Lymphocytes # 1.4 K/mcL (0.6-4.6); Lymphocytes % 18.3 %; Mean Corpuscular HGB Conc 31.9 g/dL (31.6-35.5); Mean Corpuscular Hemoglobin 31.4 pg (28.0-33.3); Mean Corpuscular Volume 98.4 fL (83.0-100.0); Mean Platelet Volume 10.5 fL (9.4-12.4); Monocytes # 0.6 K/mcL (0.0-1.3); Monocytes % 7.4 %; Neutrophils # 5.6 K/mcL (1.6-8.9); Platelet Count 206 K/mcL (140-400); Red Blood Count 3.79 M/mcL (3.82-4.97); Red Cell Distribution Width 14.6 % (11.5-14.5); Segmented Neutrophils % 72.7 %; White Blood Count 7.7 K/mcL (4.3-11.1)
[2020-03-07 13:18] LABS: Heparin anti-factor XA UFH 0.04 IU/mL (0.30-0.70)
[2020-03-07 13:19] LABS: INR 1.5; Prothrombin Time 16.5 Seconds (9.4-12.1)
[2020-03-07 13:20] LABS: Activated Partial Thrombo Time 33.7 Seconds (26.0-36.0)
[2020-03-07] MEDS: Heparin 25,000 UNIT/250 ML D5W 25,000 UNIT/250 ML IV.SOLN IVC SCH (13:21)
[2020-03-07 13:27] LABS: Calcium 9.4 mg/dL (8.6-10.3); Potassium 4.5 mEq/L (3.5-5.1)
[2020-03-07 13:33] LABS: Troponin I 0.44 ng/mL (< 0.04)
[2020-03-07] MEDS ORDERED: Naloxone 0.4 MG/ML INJ IVP PRN (15:20)
[2020-03-07] MEDS ORDERED: Ondansetron 4 MG/2 ML VIAL IVP PRN (15:20)
[2020-03-07] MEDS ORDERED: Perflutren Lipid Microsphere 1.3 ML in 0.9 % Sodium Chloride 8.7 ML IVP PRN (15:27)
[2020-03-07] MEDS ORDERED: Nitroglycerin 0.4 MG TAB.SUBL SL PRN (15:27)
[2020-03-07] MEDS ORDERED: Aspirin 325 MG TABLET PO ONE (15:27)
[2020-03-07] MEDS ORDERED: Morphine Sulfate 2 MG/ML SYRINGE IVP PRN (15:27)
[2020-03-07 16:11] LABS: Magnesium 2.2 mg/dL (1.6-2.6); Phosphorous 3.7 mg/dL (2.7-4.5)
[2020-03-07] MEDS ORDERED: Nitroglycerin 1 INCH/GM PACKET TP ONE (16:13)
[2020-03-07 16:22] LABS: Adenovirus Not Detected (Not Detect); Coronavirus 229E Not Detected (Not Detect); Coronavirus HKU1 Not Detected (Not Detect); Coronavirus NL63 Not Detected (Not Detect); Coronavirus OC43 Not Detected (Not Detect)
[2020-03-07 16:23] LABS: Bordetella Pertussis Not Detected (Not Detect); Chlamydophila pneumoniae Not Detected (Not Detect); Human Metapneumovirus Not Detected (Not Detect); Human Rhinovirus/Enterovirus Not Detected (Not Detect); Influenza A Subtype 2009 H1 Not Detected (Not Detect); Influenza B Not Detected (Not Detect); Mycoplasma pneumoniae Not Detected (Not Detect); Parainfluenza Virus 1 Not Detected (Not Detect); Parainfluenza Virus 2 Not Detected (Not Detect); Parainfluenza Virus 3 Not Detected (Not Detect); Parainfluenza Virus 4 Not Detected (Not Detect); Respiratory Syncytial Virus Not Detected (Not Detect); SARS-CoV-2 Not Detected (Not Detect)
[2020-03-08 02:12] LABS: Basophils # 0.1 K/mcL (0.0-0.2); Basophils % 0.7 %; Eosinophils # 0.1 K/mcL (0.0-0.6); Eosinophils % 0.9 %; Hematocrit 36.1 % (35.3-44.9); Hemoglobin 11.4 g/dL (11.5-15.4); Immature Granulocytes % 0.4 % (0-4); Lymphocytes # 1.5 K/mcL (0.6-4.6); Lymphocytes % 21.5 %; Mean Corpuscular HGB Conc 31.6 g/dL (31.6-35.5); Mean Corpuscular Hemoglobin 31.5 pg (28.0-33.3); Mean Corpuscular Volume 99.7 fL (83.0-100.0); Mean Platelet Volume 10.8 fL (9.4-12.4); Monocytes # 0.7 K/mcL (0.0-1.3); Monocytes % 10.5 %; Neutrophils # 4.6 K/mcL (1.6-8.9); Platelet Count 188 K/mcL (140-400); Red Blood Count 3.62 M/mcL (3.82-4.97); Red Cell Distribution Width 14.6 % (11.5-14.5)
[2020-03-08 02:36] LABS: Potassium 3.7 mEq/L (3.5-5.1)
[2020-03-08] MEDS: Aspirin 81 MG TAB.CHEW PO SCH (08:25)
[2020-03-08] MEDS: Metoprolol XL (24 HR) Succ 25 MG TAB.ER.24H PO SCH (08:25)
[2020-03-08 16:16] LABS: Bacteria,Urine Few per hpf (None-Few); Bilirubin,Urine Negative (Negative); Blood,Urine Negative (Negative); Clarity,Urine Clear (Clear); Color,Urine Yellow (Yellow); Glucose,Urine (UA) Normal (Normal); Ketones,Urine Negative (Negative); Leukocyte Esterase,Urine Moderate (Negative); Mucus,Urine Few per lpf (None-Few); Nitrite,Urine Negative (Negative); Protein,Urine Negative (Neg-Trace); Specific Gravity,Urine 1.022 (1.010-1.025); Squamous Epithelial Cell,Urine Few per hpf (None-Few)
[2020-03-08 16:19] LABS: Sodium, Urine 75.2 mEq/L
[2020-03-09] MEDS: Heparin 25,000 UNIT/250 ML D5W 25,000 UNIT/250 ML IV.SOLN IVC SCH (00:07)
[2020-03-09 03:27] LABS: Hematocrit 35.4 % (35.3-44.9); Hemoglobin 11.5 g/dL (11.5-15.4); Mean Corpuscular HGB Conc 32.5 g/dL (31.6-35.5); Mean Corpuscular Hemoglobin 32.4 pg (28.0-33.3); Mean Corpuscular Volume 99.7 fL (83.0-100.0); Mean Platelet Volume 10.7 fL (9.4-12.4); Platelet Count 177 K/mcL (140-400); Red Blood Count 3.55 M/mcL (3.82-4.97); Red Cell Distribution Width 14.6 % (11.5-14.5); White Blood Count 7.6 K/mcL (4.3-11.1)
[2020-03-09 03:50] LABS: Calcium 8.7 mg/dL (8.6-10.3); Potassium 4.2 mEq/L (3.5-5.1)
[2020-03-09] MEDS: Metoprolol XL (24 HR) Succ 25 MG TAB.ER.24H PO SCH (08:42)
[2020-03-09] MEDS: Aspirin 81 MG TAB.CHEW PO SCH (08:42)
[2020-03-09] MEDS: 0.9 % Sodium Chloride 1,000 ML IVC SCH (15:34)
[2020-03-10 04:52] LABS: Hematocrit 34.7 % (35.3-44.9); Hemoglobin 11.2 g/dL (11.5-15.4); Mean Corpuscular HGB Conc 32.3 g/dL (31.6-35.5); Mean Corpuscular Hemoglobin 32.9 pg (28.0-33.3); Mean Corpuscular Volume 102.1 fL (83.0-100.0); Mean Platelet Volume 10.8 fL (9.4-12.4); Platelet Count 162 K/mcL (140-400); Red Cell Distribution Width 14.5 % (11.5-14.5)
[2020-03-10 04:56] LABS: INR 1.3; Prothrombin Time 14.4 Seconds (9.4-12.1)
[2020-03-10 05:11] LABS: BUN/Creatinine Ratio 36 (6-26); Blood Urea Nitrogen 34 mg/dL (8-23); Calcium 8.9 mg/dL (8.6-10.3); Carbon Dioxide 23 mEq/L (23-29); Chloride 110 mEq/L (98-107); Glucose 107 mg/dL (70-105); Osmolality,Calculated 294 (280-300); Potassium 4.4 mEq/L (3.5-5.1); Sodium 138 mEq/L (136-145); eGFR For African Americans > 60 (> 60); eGFR For Non-African Americans 56 (> 60)
[2020-03-10] MEDS: 0.9 % Sodium Chloride 1,000 ML IVC SCH (05:45)
[2020-03-10] MEDS: Heparin 25,000 UNIT/250 ML D5W 25,000 UNIT/250 ML IV.SOLN IVC SCH (05:51)
[2020-03-10] MEDS: Metoprolol XL (24 HR) Succ 25 MG TAB.ER.24H PO SCH (07:30)
[2020-03-10] MEDS: Aspirin 81 MG TAB.CHEW PO SCH (07:31)
[2020-03-10] MEDS ORDERED: *HR* Heparin 10,000 UNIT/10 ML VIAL ONE (09:37)
[2020-03-10] MEDS ORDERED: Heparin 1,000 UNITS/500 mL 500 ML ONE (09:38)
[2020-03-10] MEDS ORDERED: 0.9 % Sodium Chloride 1,000 ML ONE (09:38)
[2020-03-10] MEDS ORDERED: Nitroglycerin 1,000 MCG/10 ML VIAL IV ONE (09:38)
[2020-03-10] MEDS ORDERED: ISOVUE-370 200 ML INFUS..BTL ONE ×2 (09:38→10:48)
[2020-03-10] MEDS ORDERED: *HR* Midazolam HCl 2 MG/2 ML VIAL ONE (10:30)
[2020-03-10] MEDS ORDERED: *HR* Heparin 5,000 UNIT/ML VIAL IVP PRN ×2 (15:37)
[2020-03-10] MEDS ORDERED: Heparin 25,000 UNIT/250 ML D5W 25,000 UNIT/250 ML IV.SOLN IVC SCH (15:45)
[2020-03-10 16:37] LABS: Hematocrit 35.9 % (35.3-44.9); Hemoglobin 11.1 g/dL (11.5-15.4); Mean Corpuscular HGB Conc 30.9 g/dL (31.6-35.5); Mean Corpuscular Hemoglobin 31.4 pg (28.0-33.3); Mean Corpuscular Volume 101.7 fL (83.0-100.0); Mean Platelet Volume 11.1 fL (9.4-12.4); Platelet Count 173 K/mcL (140-400); Red Blood Count 3.53 M/mcL (3.82-4.97); Red Cell Distribution Width 14.7 % (11.5-14.5); White Blood Count 8.3 K/mcL (4.3-11.1)
[2020-03-10 16:52] LABS: Heparin anti-factor XA UFH < 0.04 IU/mL (0.30-0.70)
[2020-03-10 16:53] LABS: INR 1.1; Prothrombin Time 12.8 Seconds (9.4-12.1)
[2020-03-10] MEDS ORDERED: Warfarin perPT PO PRN (18:00)
[2020-03-10] MEDS ORDERED: *HR* Warfarin 3 MG TABLET PO ONE (18:00)
[2020-03-10] MEDS: Ranolazine 500 MG TAB.ER.12H PO SCH (20:03)
[2020-03-11] MEDS ORDERED: Melatonin 3 MG TABLET PO ONE (00:38)
[2020-03-11 02:23] LABS: Hematocrit 34.3 % (35.3-44.9); Hemoglobin 10.9 g/dL (11.5-15.4); Mean Corpuscular HGB Conc 31.8 g/dL (31.6-35.5); Mean Corpuscular Hemoglobin 32.2 pg (28.0-33.3); Mean Corpuscular Volume 101.5 fL (83.0-100.0); Mean Platelet Volume 10.7 fL (9.4-12.4); Platelet Count 151 K/mcL (140-400); Red Blood Count 3.38 M/mcL (3.82-4.97); Red Cell Distribution Width 14.6 % (11.5-14.5); White Blood Count 9.1 K/mcL (4.3-11.1)
[2020-03-11 02:32] LABS: Heparin anti-factor XA UFH 0.22 IU/mL (0.30-0.70)
[2020-03-11 02:33] LABS: INR 1.2; Prothrombin Time 13.1 Seconds (9.4-12.1)
[2020-03-11 02:42] LABS: BUN/Creatinine Ratio 28 (6-26); Blood Urea Nitrogen 25 mg/dL (8-23); Calcium 8.9 mg/dL (8.6-10.3); Carbon Dioxide 18 mEq/L (23-29); Chloride 109 mEq/L (98-107); Glucose 110 mg/dL (70-105); Osmolality,Calculated 287 (280-300); Potassium 4.3 mEq/L (3.5-5.1); Sodium 136 mEq/L (136-145); eGFR For African Americans > 60 (> 60); eGFR For Non-African Americans 59 (> 60)
[2020-03-11] MEDS: Ranolazine 500 MG TAB.ER.12H PO SCH (10:50)
[2020-03-11] MEDS: Aspirin 81 MG TAB.CHEW PO SCH (10:51)
[2020-03-11] MEDS: Metoprolol XL (24 HR) Succ 25 MG TAB.ER.24H PO SCH (10:51)
[2020-03-11 11:03] VITALS: BP 108/70
[2020-03-11] MEDS ORDERED: *HR* Warfarin 3 MG TABLET PO ONE (18:00)
== END 2020-03-11 16:55 | disposition home or self-care (01) | DRG 280 ==
LOC: EMEROOARM 12:41 → SUATTDRO 18:03 → 2ANU 18:03
PROVIDERS: ADMIT Family Medicine; ATTEND Internal Medicine